=== PATIENT | female | born 1985 | race Caucasian/White ===

== ENCOUNTER 2020-10-26 15:01 | Inpatient (IN) | payer MEDICAID, SELFPAY ==
[2020-10-26 15:03] VITALS: BP 159/95; PULSE 112; RESP 24; TEMP 36.5; O2SAT 99
--- NOTE | 2020-10-26 15:06 | W.ED.GENAD ---
Discharge Plan Disposition Patient Disposition: [facility] INPATIENT Condition: Stable Discharge Details Clinical Impression: Acute appendicitis Admit Date/Time: 10/26/20 18:30 Admit Provider: Niko Calvin Attending Provider: Niko Calvin Primary Care Provider: None,None ED Provider: Sarah Stahl Discharge Data Discharge Date/Time-TO BE ENTERED AT DEPARTURE: 10/26/20 21:15 Medical Decision Making 35-year-old female with a history of chronic constipation presents to the ED with constipation for the past few days and right-sided abdominal pain since last night. Heart rate 110s. Blood pressure hypertensive. She is afebrile. Patient appears significantly uncomfortable while moving from a sitting to supine position. She has significant tenderness palpation of the right lower down to right lower quadrant. Suspect this is most likely musculoskeletal. Do not palpate an obvious mass, bulge without evidence of cellulitis. Due to her location of pain, will obtain screening labs, gallbladder ultrasound and CT abdomen and pelvis to rule out bowel obstruction, hernia or appendicitis. We will also give IV fluids, a dose of p.o. Valium and IV Toradol and reassess. Labs and imaging reviewed. White blood cell count 12.56. Anion gap 15.5. Lipase normal. Urine appears consistent with dehydration but no obvious infection Gallbladder ultrasound negative. CT abdomen and pelvis notes acute appendicitis with a potential walled off perforation. Patient reassessed and she states pain is persistent with any movement. Will give a dose of morphine Case discussed with surgeon on-call Dr. Calvin who will take patient to the OR. Agrees with plan for Zosyn. Delay in patient going to the OR due to an emergency with OB. Patient did develop a low-grade fever of 100.8 for which she was given IV tylenol. She otherwise remained hemodynamically stable. Medical Records Medical records reviewed: Yes I reviewed the patient's medical records. Imaging Data Radiologic Study: Radiologist's impression: CT Abdomen And Pelvis With Contrast Exam date and time: 10/26/2020 4:39 PM Age: 35 years old Clinical indication: Other: Ruq/rlq pain, R/O cholecystitis, appendicitis, sbo TECHNIQUE: Imaging protocol: Computed tomography of the abdomen and pelvis with contrast. Radiation optimization: All CT scans at this facility use at least one of these dose optimization techniques: automated exposure control; mA and/or kV adjustment per patient size (includes targeted exams where dose is matched to clinical indication); or iterative reconstruction. Contrast material: VISIPAQUE 320; Contrast volume: 100 ml; Contrast route: INTRAVENOUS (IV); COMPARISON: US ABDOMEN LIMITED 10/26/2020 3:56 PM FINDINGS: Liver: Diffuse fatty infiltration of the liver. Gallbladder and bile ducts: Normal. No calcified stones. No ductal dilation. Pancreas: Normal. No ductal dilation. Spleen: Normal. No splenomegaly. Adrenal glands: Normal. No mass. Kidneys and ureters: Normal. No hydronephrosis. Stomach and bowel: Gas distended loops small bowel in the left side of the abdomen with maximum diameter 2.5 cm. These could be ileus. Appendix: Dilated appendix measuring approximately 1.2 cm in diameter. Fluid in the appendiceal lumen. Periappendiceal soft tissue stranding. Linear calcified appendicoliths measuring approximately 2.2 cm in the more proximal appendix and approximately 1.3 cm in the distal appendix. No fluid collection is identified but contained perforation cannot be excluded. Intraperitoneal space: See Appendix finding. Vasculature: Retroaortic left renal vein. Lymph nodes: Unremarkable. No enlarged lymph nodes. Urinary bladder: Unremarkable as visualized. Reproductive: The uterus has a bicornuate or septated appearance. Bones/joints: Unremarkable. No acute fracture. Soft tissues: Unremarkable. IMPRESSION: 1. Acute appendicitis with 2 elongated appendicoliths. Contained perforation cannot be excluded but appears unlikely. No fluid collection identified 2. Probable focal left-sided small-bowel ileus. Fatty liver. Bicornuate or septated uterus. US ABDOMEN LIMITED CLINICAL HISTORY: RUQ abd pain, r/o cholecystitis TECHNIQUE: Ultrasound abdomen performed using standard protocol. COMPARISON: No exams were available for comparison FINDINGS: There is no ascites evident. LIVER: Liver is hyperechoic indicating steatosis. No focal hepatic lesions identified. GALLBLADDER/BILIARY: There are no gallstones. No gallbladder wall edema nor pericholecystic fluid. The common hepatic duct isnot dilated, measuring 4-5mm at the level of angel hepatis. PANCREAS: There is no evidence of pancreatic mass nor dilatation of the pancreatic duct. RIGHT KIDNEY:No evidence of solid mass, calculus, nor hydronephrosis. No cortical cysts evident. ABDOMINAL AORTA AND IVC: Visualized portions exhibit normal caliber. IMPRESSION: 1. No evidence of cholelithiasis nor dilatation of the biliary tree. 2. Hepatic steatosis. Correlation with appropriate hepatic blood work is recommended 3. There is no ascites. Lab Data Lab results reviewed: Yes I reviewed the patient's lab results. Labs: Laboratory Tests Range/Units 10/26/20 10/26/20 10/26/20 15:20 15:20 16:23 WBC (4.4-10.8) 10^3/uL 12.56 H RBC (3.93-5.22) 10^6/uL 4.17 Hgb (11.2-15.7) g/dL 13.2 Hct (36.0-46.0) % 38.9 MCV (80-95) fL 93.3 MCH (27.0-33.0) pg 31.7 MCHC (32.0-36.0) % 33.9 RDW (11.7-14.6) % 12.5 Plt Count (130-400) 10^3/uL 182 MPV (8.0-11.0) fL 10.2 Immature Gran % 0.3 Neutrophils % 85.2 Lymphocytes % 7.8 Monocytes % 6.4 Eosinophils % 0.0 Basophils % 0.3 Nucleated RBC % % 0 Absolute Neutrophils (1.2-6.7) 10^3/uL 10.70 H Absolute Lymphocytes (1.2-3.4) 10^3/uL 0.98 L Absolute Monocytes (0.1-0.8) 10^3/uL 0.80 Absolute Eosinophils (0.0-0.7) 10^3/uL 0.00 Absolute Basophils (0.0-0.2) 10^3/uL 0.04 Sodium (136-145) mmol/L 136 Potassium (3.5-5.1) mmol/L 3.6 Chloride (98-107) mmol/L 97 L Carbon Dioxide (21.0-32.0) mmol/L 23.5 Anion Gap (3-11) mmol/L 15.5 H BUN (7-18) mg/dL 7 Creatinine (0.55-1.02) mg/dL 0.8 Estimated GFR/1.73 m2 (mL/min/1.73m2) >= 60.00 Glucose (74-106) mg/dL 92 Calcium (8.5-10.1) mg/dL 9.9 Total Bilirubin (0.2-1.0) mg/dL 1.5 H AST (15-37) U/L 37 ALT (14-59) U/L 46 Alkaline Phosphatase (46-116) U/L 86 Total Protein (6.4-8.2) g/dL 8.4 H Albumin (3.4-5.0) g/dL 4.1 Lipase (73-393) U/L 65 Urine Color (Yellow) Yellow Urine Clarity (Clear) Clear Urine pH (5-8) 6.0 Ur Specific [place] (1.005-1.025) >= 1.030 H Urine Protein (Negative) mg/dL Negative Urine Ketones (Negative) mg/dL >=160 H Urine Blood (Negative) Trace-lysed H Urine Nitrite (Negative) Negative Urine Bilirubin (Negative) Negative Urine Urobilinogen (Up TO 0.2) EU/dL 0.2 Ur Leukocyte Esterase (Negative) Negative Urine RBC (0-2) HPF 0-2 Urine WBC (0-5) HPF 0-2 Ur Epithelial Cells (Negative) HPF Moderate Urine Crystals (Negative) HPF Negative Urine Bacteria (Negative) HPF Negative Urine Casts (Negative) LPF Negative Urine Mucus (Negative) Trace Urine Other (Negative) Negative Ur Culture Indicated? No Urine Glucose (Negative) mg/dL Negative COVID-19 Source SARS-CoV-2 (PCR) (Negative) Range/Units 10/26/20 17:21 WBC (4.4-10.8) 10^3/uL RBC (3.93-5.22) 10^6/uL Hgb (11.2-15.7) g/dL Hct (36.0-46.0) % MCV (80-95) fL MCH (27.0-33.0) pg MCHC (32.0-36.0) % RDW (11.7-14.6) % Plt Count (130-400) 10^3/uL MPV (8.0-11.0) fL Immature Gran % Neutrophils % Lymphocytes % Monocytes % Eosinophils % Basophils % Nucleated RBC % % Absolute Neutrophils (1.2-6.7) 10^3/uL Absolute Lymphocytes (1.2-3.4) 10^3/uL Absolute Monocytes (0.1-0.8) 10^3/uL Absolute Eosinophils (0.0-0.7) 10^3/uL Absolute Basophils (0.0-0.2) 10^3/uL Sodium (136-145) mmol/L Potassium (3.5-5.1) mmol/L Chloride (98-107) mmol/L Carbon Dioxide (21.0-32.0) mmol/L Anion Gap (3-11) mmol/L BUN (7-18) mg/dL Creatinine (0.55-1.02) mg/dL Estimated GFR/1.73 m2 (mL/min/1.73m2) Glucose (74-106) mg/dL Calcium (8.5-10.1) mg/dL Total Bilirubin (0.2-1.0) mg/dL AST (15-37) U/L ALT (14-59) U/L Alkaline Phosphatase (46-116) U/L Total Protein (6.4-8.2) g/dL Albumin (3.4-5.0) g/dL Lipase (73-393) U/L Urine Color (Yellow) Urine Clarity (Clear) Urine pH (5-8) Ur Specific [place] (1.005-1.025) Urine Protein (Negative) mg/dL Urine Ketones (Negative) mg/dL Urine Blood (Negative) Urine Nitrite (Negative) Urine Bilirubin (Negative) Urine Urobilinogen (Up TO 0.2) EU/dL Ur Leukocyte Esterase (Negative) Urine RBC (0-2) HPF Urine WBC (0-5) HPF Ur Epithelial Cells (Negative) HPF Urine Crystals (Negative) HPF Urine Bacteria (Negative) HPF Urine Casts (Negative) LPF Urine Mucus (Negative) Urine Other (Negative) Ur Culture Indicated? Urine Glucose (Negative) mg/dL COVID-19 Source Nasopharyx SARS-CoV-2 (PCR) (Negative) Negative HPI General Mode of arrival: wheelchair. Date/Time Provider Initiated Documentation: 10/26/20 15:02. Limitations to Documentation: no limitations. Information obtained by: patient. HPI Narrative: Patient is a 35-year-old female with a history of chronic constipation who presents to the ED with complaint of constipation for the past few days and right-sided abdominal pain since last night since straining to have a bowel movement. She states she was straining very hard to have a bowel movement and felt a pop in her right side of her abdomen. Patient states the pain is constant, sharp, located in the right upper and right lower quadrants that is worse with movement, palpation or sucking her abdomen. Patient does not take any medication for pain today. Patient states she usually takes probiotics or apple cider vinegar for her constipation. She states she also occasionally uses stool softeners or MiraLAX as needed. She states she has had a few small bowel movements over the past few days but that they were dark brown. She admits to decreased appetite today. She states she had a temp of 99.8 today at home. She denies any nausea, vomiting, urinary symptoms, recent travel, recent sick contacts or recent antibiotics. Related Data Home Medications Medication Instructions Recorded Confirmed norethindrone ac-eth estradiol 1 tab PO DAILY 12/28/15 [Microgestin 08/03 ()] ibuprofen [IBU] 600 mg PO Q6H PRN PRN #0 tab 10/27/20 tramadol 50 mg PO Q6H PRN PRN #12 tab 10/27/20 Previous Rx's Medication Instructions Recorded ibuprofen [IBU] 600 mg PO Q6H PRN PRN #0 tab 10/27/20 tramadol 50 mg PO Q6H PRN PRN #12 tab 10/27/20 Allergies Allergy/AdvReac Type Severity Reaction Status Date / Time No Known Allergies Allergy Unverified 10/26/20 15:06 Review of Systems All systems reviewed & are unremarkable except as noted in HPI and below Constitutional Constitutional: Reports as per HPI, Denies chills and Denies fever(s) Eyes Eyes: Denies blurry vision ENT Ears, Nose, Mouth, and Throat: Denies dizziness, Denies sore throat and Denies throat swelling Cardiovascular Cardiovascular: Denies chest pain and Denies dyspnea Respiratory Respiratory: Denies cough and Denies dyspnea Gastrointestinal Gastrointestinal: Reports abdominal pain, Reports constipation, Denies diarrhea and Denies vomiting Genitourinary Genitourinary: Denies hematuria and Denies dysuria Musculoskeletal Musculoskeletal: Denies back pain and Denies numbness Integumentary/Breasts Skin/Breast: Denies lesions and Denies rash Neurologic Neurologic: Denies dizziness, Denies localized weakness and Denies numbness Allergic/Immunologic Allergic/Immunologic: Denies throat swelling [facility] Medical History No significant past medical history Surgical History No significant past surgical history Family History Other Heart disease Social History Smoking/Tobacco Use Status: Never Smoking risk assessment performed?: Yes Alcohol Intake: never Drug use: Never Substance use type: does not use In current or past relationships, have you been: made to feel afraid Do you feel safe at home: Yes Do you feel safe in your relationship?: Yes Exam Const General: cooperative, healthy appearing and no acute distress HENMT Head: normal to inspection Face and sinus: normal facial exam Eyes General: appearance normal, both eyes and all related structures EOM: EOM intact bilaterally Neck Neck: normal visual inspection and No submandibular swelling Lymphatic: no lymphadenopathy noted Chest Chest: normal inspection of the chest and no tenderness Resp Effort & Inspection: normal respiratory effort and able to speak in complete sentences Auscultation: clear to auscultation bilaterally Cardio Rate: regular rate Rhythm: regular rhythm GI Inspection: normal to inspection Palpation: soft, not firm, not rigid and tender in the RLQ and in the RUQ Auscultation: normal bowel sounds Skin General skin exam: no rashes or lesions noted Neuro General: patient alert, patient awake and patient oriented x3 Cognition: normal cognition Speech: speech normal Motor: muscle tone normal throughout Sensory Exam: no sensory deficits noted Extrem General: normal to inspection, full ROM, capillary refill normal, no calf tenderness bilaterally and no edema Psych Appearance: grossly normal Mental Status: mental status grossly normal Speech and Movement: speech and movement normal Affect: normal affect
--- NOTE | 2020-10-26 15:15 | DI.CT_ITS ---
EXAM: CT ABDOMEN PELVIS W CLINICAL HISTORY: RUQ/RLQ pain, r/o cholecystitis, appendicitis, SBO. TECHNIQUE: Imaging Protocol: Axial computed tomography images with coronal and sagittal reformatted images were created and reviewed CONTRAST MATERIAL: Intravenous: Omnipaque 100cc Oral: None COMPARISON: No exams were available for comparison FINDINGS: VISUALIZED LUNG BASES: No nodules nor pleural effusions evident. ABDOMEN: There is no ascites in the upper abdomen. LIVER: Liver is hypodense implying steatosis but there are no discrete focal hepatic lesions. No dil atation of intrahepatic ducts. GALLBLADDER/BILIARY: No obvious gallbladder pathology. CBD is not dilated. PANCREAS: No evidence of pancreatic mass nor dilatation of the pancreatic duct. SPLEEN: Spleen is not enlarged. No obvious intrasplenic lesions. Small splenule of a: Betty mint se en adjacent to the spleen lateral aspect. The splenic and portal veins are patent. ADRENALS: There are no significant adrenal masses. KIDNEYS:No cysts evident. No solid renal masses. No calculi nor hydronephrosis.. ABDOMINAL AORTA: Abdominal aorta is not enlarged. Retroaortic left renal vein is noted, seen approxi mately 5 percent of the general population. LYMPH NODES:There is no retroperitineal nor paraaortic adenopathy. ABDOMINAL WALL/GI: No evidence of significant anterior abdominal wall hernia. No bowel obstruction. PELVIS: GI: The appendix is abnormal. It is distended to 12 millimeters and contains appendicoliths and some periappendiceal fluid is noted. No free air.No evidence of sigmoid diverticulitis. LYMPH NODES: There is no intrapelvic nor inguinal adenopathy. REPRODUCTIVE: Bicornuate uterus noted small cyst in the right ovary. Left ovary unremarkable. URINARY BLADDER: No calculi nor obvious masses evident OSSEOUS: No significant osseous lesions. IMPRESSION: 1. Findings are consistent with acute appendicitis. Is some fluid surrounding the appendix. 2. Bicornuate uterus incidentally noted. 3. Hepatic steatosis. No discrete focal hepatic lesions. RADIATION DOSE DELIVERED: 962.5mGy.cm Total DLP DATA REPOSITORY: All CT scans at this facility are submitted to the National Radiology Data Registry (NRDR) Dose Index Registry (DIR) with the [employer] ([employer]). RADIATION OPTIMIZATION: All CT scans at this facility use at least one of these dose optimization te chniques: automated exposure control; mA and/or kV adjustment per patient size (includes targeted exa ms where dose is matched to clinical indication); or iterative reconstruction.
--- NOTE | 2020-10-26 15:15 | DI.US_ITS ---
EXAM: US ABDOMEN LIMITED CLINICAL HISTORY: RUQ abd pain, r/o cholecystitis TECHNIQUE: Ultrasound abdomen performed using standard protocol. COMPARISON: No exams were available for comparison FINDINGS: There is no ascites evident. LIVER: Liver is hyperechoic indicating steatosis. No focal hepatic lesions identified. GALLBLADDER/BILIARY: There are no gallstones. No gallbladder wall edema nor pericholecystic fluid. The common hepatic duct isnot dilated, measuring 4-5mm at the level of angel hepatis. PANCREAS: There is no evidence of pancreatic mass nor dilatation of the pancreatic duct. RIGHT KIDNEY:No evidence of solid mass, calculus, nor hydronephrosis. No cortical cysts evident. ABDOMINAL AORTA AND IVC: Visualized portions exhibit normal caliber. IMPRESSION: 1. No evidence of cholelithiasis nor dilatation of the biliary tree. 2. Hepatic steatosis. Correlation with appropriate hepatic blood work is recommended 3. There is no ascites. DATA REPOSITORY:
[2020-10-26] MEDS: Normal Saline 1,000 ML 1000 ML IV (15:24)
[2020-10-26 15:29] LABS: Abs Immature Grans 0.04 10^3/uL (0.0-0.06); Absolute Basophil Count 0.04 10^3/uL (0.0-0.2); Absolute Lymphocyte Count 0.98 10^3/uL (1.2-3.4); Basophils % 0.3; HCT 38.9 % (36.0-46.0); HGB 13.2 g/dL (11.2-15.7); Immature Grans % 0.3; Lymphocytes % 7.8; MCH 31.7 pg (27.0-33.0); MCHC 33.9 % (32.0-36.0); MCV 93.3 fL (80-95); MPV 10.2 fL (8.0-11.0); Monocytes % 6.4; Neutrophils % 85.2; Nucleated RBC 0 %; Platelet Count 182 10^3/uL (130-400); RBC 4.17 10^6/uL (3.93-5.22); RDW 12.5 % (11.7-14.6); WBC 12.56 10^3/uL (4.4-10.8)
[2020-10-26] MEDS: diazePAM 5 MG TAB PO (15:29)
[2020-10-26] MEDS: Ketorolac 30 MG/ML VIAL IVP (15:29)
[2020-10-26 16:00] LABS: ALT 46 U/L (14-59); AST 37 U/L (15-37); Albumin 4.1 g/dL (3.4-5.0); Alkaline Phosphatase 86 U/L (46-116); Anion Gap 15.5 mmol/L (3-11); BUN 7 mg/dL (7-18); Bilirubin, Total 1.5 mg/dL (0.2-1.0); CO2 23.5 mmol/L (21.0-32.0); CREATININE 0.8 mg/dL (0.55-1.02); Calcium 9.9 mg/dL (8.5-10.1); Chloride 97 mmol/L (98-107); Glucose 92 mg/dL (74-106); Lipase 65 U/L (73-393); Potassium 3.6 mmol/L (3.5-5.1); Sodium 136 mmol/L (136-145); Total Protein 8.4 g/dL (6.4-8.2)
--- NOTE | 2020-10-26 16:17 | DI.VRAD_ITS ---
PROCEDURE INFORMATION: Exam: US Abdomen, Limited; Right Upper Quadrant Exam date and time: 10/26/2020 4:04 PM Age: 35 years old Clinical indication: Abdominal pain; Other: Ruq abd pain; R/O cholecystitis TECHNIQUE: Imaging protocol: US abdomen. Real time ultrasound with image documentation. Limited exam focused on the right upper quadrant. COMPARISON: No relevant prior studies available. FINDINGS: Liver: Partially visualized portion of the liver demonstrates fatty infiltration Gallbladder: Normal. No gallstones. There is no gallbladder wall thickening. Common bile duct: Normal. No stones. No dilation. Pancreas: Visualized pancreas is unremarkable. Right kidney: Normal. No mass. No hydronephrosis. IMPRESSION: No acute findings. Dictated and Authenticated by: Madeleine Betancourt MD. Ordering:JOSUE Smith MD
[2020-10-26 16:42] LABS: Bilirubin Negative (Negative); Blood Trace-lysed (Negative); Clarity Clear (Clear); Glucose Negative (Negative); Ketones >=160 mg/dL (Negative); Leukocyte Esterase Negative (Negative); Nitrite Negative (Negative); Specific Gravity >= 1.030 (1.005-1.025); Urobilinogen 0.2 EU/dL (Up TO 0.2)
[2020-10-26] MEDS: Normal Saline Flush 10 ML SYR IVP (16:46)
[2020-10-26] MEDS: Normal Saline - Diluent 50 ML VIAL IV (16:46)
[2020-10-26 16:56] LABS: Bacteria Negative HPF (Negative); C & S Indicated? No; Casts Negative LPF (Negative); Crystals Negative HPF (Negative); Epithelial Cells Moderate HPF (Negative); Mucus Trace (Negative); Other Cells Negative (Negative); RBC 0-2 HPF (0-2); WBC 0-2 HPF (0-5)
--- NOTE | 2020-10-26 17:02 | DI.VRAD_ITS ---
PROCEDURE INFORMATION: Exam: CT Abdomen And Pelvis With Contrast Exam date and time: 10/26/2020 4:39 PM Age: 35 years old Clinical indication: Other: Ruq/rlq pain, R/O cholecystitis, appendicitis, sbo TECHNIQUE: Imaging protocol: Computed tomography of the abdomen and pelvis with contrast. Radiation optimization: All CT scans at this facility use at least one of these dose optimization techniques: automated exposure control; mA and/or kV adjustment per patient size (includes targeted exams where dose is matched to clinical indication); or iterative reconstruction. Contrast material: VISIPAQUE 320; Contrast volume: 100 ml; Contrast route: INTRAVENOUS (IV); COMPARISON: US ABDOMEN LIMITED 10/26/2020 3:56 PM FINDINGS: Liver: Diffuse fatty infiltration of the liver. Gallbladder and bile ducts: Normal. No calcified stones. No ductal dilation. Pancreas: Normal. No ductal dilation. Spleen: Normal. No splenomegaly. Adrenal glands: Normal. No mass. Kidneys and ureters: Normal. No hydronephrosis. Stomach and bowel: Gas distended loops small bowel in the left side of the abdomen with maximum diameter 2.5 cm. These could be ileus. Appendix: Dilated appendix measuring approximately 1.2 cm in diameter. Fluid in the appendiceal lumen. Periappendiceal soft tissue stranding. Linear calcified appendicoliths measuring approximately 2.2 cm in the more proximal appendix and approximately 1.3 cm in the distal appendix. No fluid collection is identified but contained perforation cannot be excluded. Intraperitoneal space: See Appendix finding. Vasculature: Retroaortic left renal vein. Lymph nodes: Unremarkable. No enlarged lymph nodes. Urinary bladder: Unremarkable as visualized. Reproductive: The uterus has a bicornuate or septated appearance. Bones/joints: Unremarkable. No acute fracture. Soft tissues: Unremarkable. IMPRESSION: 1. Acute appendicitis with 2 elongated appendicoliths. Contained perforation cannot be excluded but appears unlikely. No fluid collection identified 2. Probable focal left-sided small-bowel ileus. Fatty liver. Bicornuate or septated uterus. THIS REPORT CONTAINS FINDINGS THAT MAY BE CRITICAL TO PATIENT CARE. The findings were verbally communicated via telephone conference with zeeshan kovacs at 5:00 PM EDT on 10/26/2020. The findings were acknowledged and understood. Dictated and Authenticated by: Madeleine Betancourt MD. Ordering:JOSUE Smith MD
[2020-10-26] MEDS: PIPERACILLIN/TAZO 3.375 GM in Normal Saline 50 ML IVPB (17:21)
--- NOTE | 2020-10-26 17:32 | W.SURGCON ---
Date of service: 10/26/20 Time of Service: 17:32 Assessment and Plan Assessment and plan (1) Abdominal pain: Status: Acute Assessment and plan: Assessment?abdominal pain right more than left of 48 hours duration. There is no physical exam or CT evidence of peritoneal or surgical process. Specifically other than location of pain there are no suggestions that this represents appendicitis. Symptoms may well be due to obstipation. Patient affirms that she is able to drink liquids. I have suggested she stay on a clear liquid diet for now. She should use her usual Dulcolax tabs and I have suggested that she use some milk of magnesia or MiraLAX to help prompt bowel activity. This may help alleviate her pain. Patient is comfortable watching things at home. If symptoms continue to exaggerate she should return to the ER for reevaluation as needed. Plan?no plans for operation or in-hospital observation. Clear liquids Ducalax with MiraLAX or milk of magnesia for obstipation Return to ER as needed. History of Present Illness History of Present Illness Chief Complaint: abdominal pain Narrative: 37-year-old lady has experienced abdominal pain for approximately 4 days. Pain is located on right side. It has not moved. She finds nothing improves or alleviates the discomfort. She has had no fever or chills. No nausea or vomiting. Able to drink liquids and take a light diet. Has chronic constipation and uses Dulcolax for this. Had a bowel movement yesterday. Patient is on methadone for narcotic addiction. She had a left inguinal hernia in the umbilical hernia repaired a couple of months back. Still has some tenderness at these incisions but they are no different in the last couple of days. CT scan today reveals obstipated stool. No abnormal bowel loops. No free fluid or abscess. Appendix is not distinctly identified. Ultrasound of abdomen was done earlier today. ER PA communicates that this was nonconclusive as well. WBC normal. [facility] Medical History No significant past medical history Surgical History No significant past surgical history Social History (Updated 10/26/20 @ 15:08 by Sarah Stahl DO) Smoking/Tobacco Use Status: Never Smoking risk assessment performed?: Yes Alcohol Intake: never Drug use: Never Substance use type: does not use Do you feel safe at home: Yes Do you feel safe in your relationship?: Yes Exam Eyes Sclera: sclerae normal Resp Effort & Inspection: normal respiratory effort and able to speak in complete sentences Cardio Rate: regular rate GI Other: Healing incisions in periumbilical and left groin region. No sign of infection or cellulitis. Abdomen is nondistended. She is tender all over the abdomen but more so on the right than on the left. There is no palpable mass. There is no guarding. Skin General skin exam: elasticity normal and turgor normal Results Last Vital Signs Temp 97.7 F 10/26/20 15:03 Pulse 112 H 10/26/20 15:03 Resp 24 10/26/20 15:03 BP 159/95 H 10/26/20 15:03 Pulse Ox 99 10/26/20 15:03 Labs Result diagrams: 10/26/20 15:20 10/26/20 15:20 Labs: Laboratory Results - last 24 hr 10/26/20 10/26/20 10/26/20 15:20 15:20 16:23 WBC 12.56 H RBC 4.17 Hgb 13.2 Hct 38.9 MCV 93.3 MCH 31.7 MCHC 33.9 RDW 12.5 Plt Count 182 MPV 10.2 Immature Gran % 0.3 Neutrophils % 85.2 Lymphocytes % 7.8 Monocytes % 6.4 Eosinophils % 0.0 Basophils % 0.3 Nucleated RBC % 0 Absolute Neutrophils 10.70 H Absolute Lymphocytes 0.98 L Absolute Monocytes 0.80 Absolute Eosinophils 0.00 Absolute Basophils 0.04 Sodium 136 Potassium 3.6 Chloride 97 L Carbon Dioxide 23.5 Anion Gap 15.5 H BUN 7 Creatinine 0.8 Estimated GFR/1.73 m2 >= 60.00 Glucose 92 Calcium 9.9 Total Bilirubin 1.5 H AST 37 ALT 46 Alkaline Phosphatase 86 Total Protein 8.4 H Albumin 4.1 Lipase 65 Urine Color Yellow Urine Clarity Clear Urine pH 6.0 Ur Specific [place] >= 1.030 H Urine Protein Negative Urine Ketones >=160 H Urine Blood Trace-lysed H Urine Nitrite Negative Urine Bilirubin Negative Urine Urobilinogen 0.2 Ur Leukocyte Esterase Negative Urine RBC 0-2 Urine WBC 0-2 Ur Epithelial Cells Moderate Urine Crystals Negative Urine Bacteria Negative Urine Casts Negative Urine Mucus Trace Urine Other Negative Ur Culture Indicated? No Urine Glucose Negative COVID-19 Source 10/26/20 17:21 WBC RBC Hgb Hct MCV MCH MCHC RDW Plt Count MPV Immature Gran % Neutrophils % Lymphocytes % Monocytes % Eosinophils % Basophils % Nucleated RBC % Absolute Neutrophils Absolute Lymphocytes Absolute Monocytes Absolute Eosinophils Absolute Basophils Sodium Potassium Chloride Carbon Dioxide Anion Gap BUN Creatinine Estimated GFR/1.73 m2 Glucose Calcium Total Bilirubin AST ALT Alkaline Phosphatase Total Protein Albumin Lipase Urine Color Urine Clarity Urine pH Ur Specific [place] Urine Protein Urine Ketones Urine Blood Urine Nitrite Urine Bilirubin Urine Urobilinogen Ur Leukocyte Esterase Urine RBC Urine WBC Ur Epithelial Cells Urine Crystals Urine Bacteria Urine Casts Urine Mucus Urine Other Ur Culture Indicated? Urine Glucose COVID-19 Source Nasopharyx
[2020-10-26 18:11] VITALS: BP 140/85; PULSE 110; RESP 20; TEMP 38.2; O2SAT 99
--- NOTE | 2020-10-26 18:14 | W.SURGCON ---
Date of service: 10/26/20 Time of Service: 18:14 Assessment and Plan Assessment and plan (1) Acute appendicitis: Status: Acute Assessment and plan: Assessment Acute appendicitis. Patient's constellation of history, physical , lab and imaging studies all support acute appendicitis. I have personally reviewed the images and find no convincing evidence of perforation or abscess. Plan: I have recommended laparoscopic appendectomy. We discussed the risk and benefits of procedure in regard to this diagnosis. Patient consents to procedure. We will alert the operating team and proceed to the OR as availability allows this evening. History of Present Illness History of Present Illness Chief Complaint: abdominal pain Narrative: 35-year-old lady with history of chronic constipation was having trouble with bowel movement last evening. She was straining at stool and noted fairly sudden onset of right-sided abdominal pain. This was sharp in nature and extended from the right subcostal area to right side of pelvis. The pain has persisted for the past 18 -20 hours. Discomfort is more so in right lower quadrant at present. She has not been hungry and has not eaten solid food all day today. She has had some sips of liquids. She denies nausea or vomiting. Patient has not had similar abdominal pain in the past. She has had no abdominal surgery. CT scan of abdomen done today reveals findings consistent with acute no appendicitis. There is no intra-abdominal abscess. Report suggests a possible septation containing a tiny perforation. IV antibiotics have been initiated by ER physician. Review of Systems All systems reviewed & are unremarkable except as noted in HPI and below PFSH Medical History No significant past medical history Surgical History No significant past surgical history Social History Smoking/Tobacco Use Status: Never Smoking risk assessment performed?: Yes Alcohol Intake: never Drug use: Never Substance use type: does not use Do you feel safe at home: Yes Do you feel safe in your relationship?: Yes Exam Const General: cooperative, healthy appearing and anxious HENVA Ears: hearing grossly normal bilaterally Mouth: oral mucosae normal and moist mucous membranes Eyes Sclera: sclerae normal Neck Lymphatic: no lymphadenopathy noted Resp Effort & Inspection: normal respiratory effort GI Other: Abdomen nondistended. No obvious incisions or scars. Has tenderness in right lower quadrant when left lower quadrant palpated. He has mild guarding when right lower quadrant palpated. Focally tender at the site. No obvious abdominal wall hernia. Skin General skin exam: turgor normal Neuro General: patient alert, patient awake and patient oriented x3 Motor: no movement abnormalities noted Psych Attitude: cooperative Thought Process: normal Insight: insight good Results Last Vital Signs Temp 100.8 F H 10/26/20 18:11 Pulse 110 H 10/26/20 18:11 Resp 20 10/26/20 18:11 BP 140/85 10/26/20 18:11 Pulse Ox 99 10/26/20 18:11 Labs Result diagrams: 10/26/20 15:20 10/26/20 15:20 Labs: Laboratory Results - last 24 hr 10/26/20 10/26/20 10/26/20 15:20 15:20 16:23 WBC 12.56 H RBC 4.17 Hgb 13.2 Hct 38.9 MCV 93.3 MCH 31.7 MCHC 33.9 RDW 12.5 Plt Count 182 MPV 10.2 Immature Gran % 0.3 Neutrophils % 85.2 Lymphocytes % 7.8 Monocytes % 6.4 Eosinophils % 0.0 Basophils % 0.3 Nucleated RBC % 0 Absolute Neutrophils 10.70 H Absolute Lymphocytes 0.98 L Absolute Monocytes 0.80 Absolute Eosinophils 0.00 Absolute Basophils 0.04 Sodium 136 Potassium 3.6 Chloride 97 L Carbon Dioxide 23.5 Anion Gap 15.5 H BUN 7 Creatinine 0.8 Estimated GFR/1.73 m2 >= 60.00 Glucose 92 Calcium 9.9 Total Bilirubin 1.5 H AST 37 ALT 46 Alkaline Phosphatase 86 Total Protein 8.4 H Albumin 4.1 Lipase 65 Urine Color Yellow Urine Clarity Clear Urine pH 6.0 Ur Specific [place] >= 1.030 H Urine Protein Negative Urine Ketones >=160 H Urine Blood Trace-lysed H Urine Nitrite Negative Urine Bilirubin Negative Urine Urobilinogen 0.2 Ur Leukocyte Esterase Negative Urine RBC 0-2 Urine WBC 0-2 Ur Epithelial Cells Moderate Urine Crystals Negative Urine Bacteria Negative Urine Casts Negative Urine Mucus Trace Urine Other Negative Ur Culture Indicated? No Urine Glucose Negative COVID-19 Source 10/26/20 17:21 WBC RBC Hgb Hct MCV MCH MCHC RDW Plt Count MPV Immature Gran % Neutrophils % Lymphocytes % Monocytes % Eosinophils % Basophils % Nucleated RBC % Absolute Neutrophils Absolute Lymphocytes Absolute Monocytes Absolute Eosinophils Absolute Basophils Sodium Potassium Chloride Carbon Dioxide Anion Gap BUN Creatinine Estimated GFR/1.73 m2 Glucose Calcium Total Bilirubin AST ALT Alkaline Phosphatase Total Protein Albumin Lipase Urine Color Urine Clarity Urine pH Ur Specific [place] Urine Protein Urine Ketones Urine Blood Urine Nitrite Urine Bilirubin Urine Urobilinogen Ur Leukocyte Esterase Urine RBC Urine WBC Ur Epithelial Cells Urine Crystals Urine Bacteria Urine Casts Urine Mucus Urine Other Ur Culture Indicated? Urine Glucose COVID-19 Source Nasopharyx
[2020-10-26 18:17] LABS: COVID-19 PCR Negative (Negative)
--- NOTE | 2020-10-26 18:21 | NUR.NOTE ---
let patient know of her negative covid results.
[2020-10-26] MEDS: Normal Saline 1,000 ML 125 ML IV ×2 (18:27→23:45)
[2020-10-26] MEDS: ACETAMINOPHEN 1,000 MG/100 ML BTL 400 MG IVPB (19:02)
--- NOTE | 2020-10-26 21:10 | NUR.NOTE ---
Nursing Note:See additional vital signs on Pre Op Hand off worksheet that were not entered into the EMR.
[2020-10-26] MEDS: Lactated Ringers 1,000 ML 30 ML IV (21:22)
--- NOTE | 2020-10-26 21:58 | APP_PTH ---
PATIENT: Naomi Yadav LOC: [id number]#:[id number] AGE/SX: 35/F ROOM: RE10/26/[address]: Niko Calvin MD : 1985 BED: A DIS: 10/27/2020 SPEC #: [id number] RECD: 10/27/20 12:45 STATUS: [place]CHITA REQ #: [id number] DARIEN: 10/26/20 21:[address]: Niko Calvin DEPT: Surgical Specimen RECD BY: Tasha Montano ENTERED: 10/27/20 12:45 SP TYPE: Appendix OTHR DR: None Tissues: 1 - APPENDIX NOT INCIDENTAL Procedures: GROSS AND MICRO LEVEL 3 Comments: [id number]
--- NOTE | 2020-10-26 22:11 | ROE_ITS ---
Operative Note Operative Note DATE OF PROCEDURE: 10/26/20 PRE-OP DIAGNOSIS: Acute appendicitis POST-OP DIAGNOSIS: same PROCEDURE: Laparoscopic appendectomy SURGEON: Niko Calvin ANESTHESIA TYPE: General LMA/ETT Refer to Anesthesia Record ESTIMATED BLOOD LOSS: 20 PATHOLOGY: other (Appendix) COMPLICATIONS: None Patient was transported to: PACU Patient's condition: stable Indications: Constellation of symptoms signs physical exam and imaging consistent with acute appendicitis Findings: Acutely inflamed, nonperforated appendicitis. Proximal one half of appendix is retroperitoneal. Procedure Description: The constellation of history, physical exam, imaging and/or laboratory studies suggest appendicitis. Patient has been counselled regarding surgical treatment and laparoscopic appendectomy has been advised. Risks including bleeding , infection, injury to other organs , failure to ident john pathology or alternate etiologies for symptoms are among those discussed. The distinctions between the difficulty of the procedure and of potential rates of complication in the context of perforated versus nonperforated appendicitis is outlined. The potential need for conversion to open, incisional operation is also addressed. . Benefits of appendectomy and alternative treatment with antibiotics alone are discussed. All questions from patient and/or family are addressed. Consent is obtained. DESCRIPTION OF PROCEDURE: The patient was taken to the operating suite and placed on the operating room table in the supine position. General endotracheal anesthesia was induced. Sequential ROSALIND stockings were applied. The abdomen was prepped and draped in a sterile fashion. An inferior transumbilical incision was made and carried into the abdominal cavity with Kirkland technique. An 12 mm trocar site was established. Pneumoperitoneum was induced. The abdomen was inspected. There was no sign of visceral injury due to trocar placement. Two additional 5 mm trocars were placed in the suprapubic and left lower quadrant respectively. The appendix is turgid and inflamed with modest exudate aon its surface , but no sign of perforation.The appendix was noted to be quite adherent to the surrounding viscera and lateral abdominal wall with inflammatory adhesions. These are easily broken down with modest blunt technique. The proximal 1/2 of the appendix is tethered in a retroperitoneal plane. Hook cautery is utilized to open the retroperitoneal plane and liberate the appendix. The mesoappendix was taken down with electrocautery. Hemostasis was maintained throughout. The base the appendix and its junction with cecum was clearly identified. A 2-0 Vicryl Surg-I-Loop is placed about the appendix and utilized to ligate the appendix at its junction with cecum. A 6 mm long appendiceal stump is left and the appendix is excised and placed within a specimen bag. A small amount of irrigant is used to cleanse the pericecal area. Hemostasis was again assured and the appendiceal stump appears well controlled. The specimen was placed within a retrieval bag and removed without incident via the periumbilical port. Trocars were removed under direct vision. There is no bleeding from the anterior abdominal wall. Midline fascial defect is closed with [id number] Vicryl suture. Each trocar site was closed at skin level with subcuticular 4-0 Monocryl. Dermabond is applied to skin. The patient tolerated the procedure well. There were no evident complications. The patient was in satisfactory condition throughout. All counts were reported as correct. [employer] intraoperative photos were taken and are filed elsewhere in the hospital chart.
[2020-10-26 22:14] VITALS: BP 116/70; PULSE 97; RESP 20; TEMP 36; O2SAT 100
[2020-10-26 22:19] VITALS: BP 117/69; PULSE 98; RESP 18; TEMP 37.3; O2SAT 100
[2020-10-26 23:01] VITALS: BP 102/61; PULSE 93; RESP 19; TEMP 36.9; O2SAT 98
[2020-10-26] MEDS: Melatonin 3 MG TAB 6 MG PO (23:44)
[2020-10-26] MEDS: traMADol 50 MG TAB PO (23:44)
[2020-10-27] MEDS: MORPHine 4 MG/ML SYR IM/IV ×2 (03:19→06:27)
[2020-10-27 03:47] VITALS: BP 113/69; PULSE 100; RESP 18; TEMP 37; O2SAT 97
[2020-10-27] MEDS: Normal Saline 1,000 ML 125 ML IV (06:28)
[2020-10-27 08:26] VITALS: BP 129/81; PULSE 94; RESP 16; TEMP 37.7; O2SAT 98
[2020-10-27 08:30] VITALS: TEMP 37.7
[2020-10-27] MEDS: MORPHine 4 MG/ML SYR IVP (08:30)
[2020-10-27] MEDS: Ibuprofen 600 MG TAB PO (08:30)
[2020-10-27 11:20] VITALS: BP 119/79; PULSE 83; RESP 16; TEMP 37.3; O2SAT 98
--- NOTE | 2020-10-27 11:45 | W.PM.PROGNOT ---
Date of Service Date of service: 10/27/20 Time of Service: 11:45 Assessment and Plan Assessment and plan (1) Acute appendicitis: Status: Acute Assessment and plan: Assessment: Postop day 1 after laparoscopic appendectomy. Patient doing well. We will see how pain control goes with oral medications and how increased activity goes today. Plan: Potentially discharge later today. Subjective Subjective Interval history since last seen: Patient is about 12-14 hours post-op From laparoscopic appendectomy for nonperforated acute appendicitis. The character of her abdominal pain is much improved from before her operation. Right lower quadrant discomfort dissipated. Suprapubic and trocar site pain present. She has tolerated liquids without nausea. She is ambulated to the bathroom. Voiding okay. Has used IV narcotics pain medication. Thinking of converting to oral medications at this point. Take a few hours during the afternoon and see how things progress before deciding discharge today or not. Exam Narrative Exam Narrative: Patient alert, engaged and conversational. Respiratory?no tachypnea or laboring. No audible wheezes Cardio?hemodynamically stable. No tachycardia Abdomen?trocar sites pristine. Not distended. Minimally tender. Appropriate to postop day 1. Objective Last Vital Signs Temp 99.1 F 10/27/20 11:20 Pulse 83 10/27/20 11:20 Resp 16 10/27/20 11:20 BP 119/79 10/27/20 11:20 Pulse Ox 98 10/27/20 11:20 Laboratory Results - last 24 hr 10/26/20 10/26/20 10/26/20 15:20 15:20 16:23 WBC 12.56 H RBC 4.17 Hgb 13.2 Hct 38.9 MCV 93.3 MCH 31.7 MCHC 33.9 RDW 12.5 Plt Count 182 MPV 10.2 Immature Gran % 0.3 Neutrophils % 85.2 Lymphocytes % 7.8 Monocytes % 6.4 Eosinophils % 0.0 Basophils % 0.3 Nucleated RBC % 0 Absolute Neutrophils 10.70 H Absolute Lymphocytes 0.98 L Absolute Monocytes 0.80 Absolute Eosinophils 0.00 Absolute Basophils 0.04 Sodium 136 Potassium 3.6 Chloride 97 L Carbon Dioxide 23.5 Anion Gap 15.5 H BUN 7 Creatinine 0.8 Estimated GFR/1.73 m2 >= 60.00 Glucose 92 Calcium 9.9 Total Bilirubin 1.5 H AST 37 ALT 46 Alkaline Phosphatase 86 Total Protein 8.4 H Albumin 4.1 Lipase 65 Urine Color Yellow Urine Clarity Clear Urine pH 6.0 Ur Specific [place] >= 1.030 H Urine Protein Negative Urine Ketones >=160 H Urine Blood Trace-lysed H Urine Nitrite Negative Urine Bilirubin Negative Urine Urobilinogen 0.2 Ur Leukocyte Esterase Negative Urine RBC 0-2 Urine WBC 0-2 Ur Epithelial Cells Moderate Urine Crystals Negative Urine Bacteria Negative Urine Casts Negative Urine Mucus Trace Urine Other Negative Ur Culture Indicated? No Urine Glucose Negative COVID-19 Source SARS-CoV-2 (PCR) 10/26/20 17:21 WBC RBC Hgb Hct MCV MCH MCHC RDW Plt Count MPV Immature Gran % Neutrophils % Lymphocytes % Monocytes % Eosinophils % Basophils % Nucleated RBC % Absolute Neutrophils Absolute Lymphocytes Absolute Monocytes Absolute Eosinophils Absolute Basophils Sodium Potassium Chloride Carbon Dioxide Anion Gap BUN Creatinine Estimated GFR/1.73 m2 Glucose Calcium Total Bilirubin AST ALT Alkaline Phosphatase Total Protein Albumin Lipase Urine Color Urine Clarity Urine pH Ur Specific [place] Urine Protein Urine Ketones Urine Blood Urine Nitrite Urine Bilirubin Urine Urobilinogen Ur Leukocyte Esterase Urine RBC Urine WBC Ur Epithelial Cells Urine Crystals Urine Bacteria Urine Casts Urine Mucus Urine Other Ur Culture Indicated? Urine Glucose COVID-19 Source Nasopharyx SARS-CoV-2 (PCR) Negative
--- NOTE | 2020-10-27 12:22 | DSE_ITS ---
Date of service: 10/27/20 Time of Service: 12:22 DS: Diagnosis Discharge Diagnosis (1) Acute appendicitis: Status: Acute Discharge Plan Disposition Patient Disposition: HOME Condition: Stable Discharge Details Reason For Visit: ACUTE APPENDICITIS Admit Date/Time: 10/26/20 18:30 Admit Provider: Niko Calvin Attending Provider: Niko Calvin Primary Care Provider: None,None Hospital Course Hospital Course: 35-year-old healthy lady with 18-hour history right-sided abdominal pain. Focally tender in right lower quadrant, mild leukocytosis and CT imaging consistent with acute appendicitis. Patient was evaluated in the emergency department and taken to the operating room on the evening of admission. An acutely inflamed but nonperforated appendix was removed with laparoscopic appendectomy. At 12 hours postop patient was feeling improved in regard to abdominal discomfort. She was tolerating liquids without nausea or emesis. She had used modest amounts of IV narcotic pain medication with decent control. She was looking forward to trialing oral pain medications. If patient is able to ambulate, have pain controlled with oral medications and remain stable over the next several hours a discharge to home is planned. Follow-up with general surgery office in [facility] advised for about 10 days postop Home Meds and New Rx's Prescriptions: New tramadol 50 mg Tablet 50 mg PO Q6H PRN PRN (Reason: Pain) Qty: 12 RF: 0 ibuprofen [IBU] 600 mg Tablet 600 mg PO Q6H PRN PRN (Reason: Pain) Qty: 0 RF: 0 Continued norethindrone ac-eth estradiol [Microgestin 08/03 ()] 1 EACH tablet 1 tab PO DAILY RF: 0 Discharge Instructions Instructions: Laparoscopic Appendectomy (GEN) Stand Alone Forms: Nursing Discharge Form Referrals: Danni Saucedo DO [OSTEOPATHIC DOCTOR] - 11/07/20 2:30 pm Activity:: No activity which causes Equipment/Supplies:: No Equipment Needed Diet:: As Tolerated Discharge Orders Discharge Orders: Discharge Order (Routine); Ordered 10/27/20 Ordered By: Niko Calvin Discharge Data Discharge Date/Time-TO BE ENTERED AT DEPARTURE: 10/27/20 15:22 Discharge Comment: Needs Gen Surgery office appt in about 10 days DS: Summary Time Spent with Patient providing and/or coordinating discharge services: Less than 30 minutes Specific discharge activities: - frequent ambulation - use Benefiber 2T daily to mitigate constipation - avoid lifting or strainingactivity which causes straining of abdominal muscles for 4 weeks Status at Discharge Functional status at discharge: independent ambulation Overall status at discharge: patient is progressing back to baseline Mental Status: mental status grossly normal Speech and Movement: speech and movement normal Mood: congruent mood Affect: normal affect Quality: VTE Deep Vein Thrombosis/Pulmonary Embolism Present on Admission: No Exam Const General: cooperative and no acute distress Orientation: alert Resp Effort & Inspection: normal respiratory effort and able to speak in complete sentences Cardio Rate: regular rate GI Inspection: normal to inspection and other (Trochar sites without ecchymosis or swelling. Minimally tender) Skin General skin exam: turgor normal Psych Mental Status: mental status grossly normal Speech and Movement: speech and movement normal Mood: congruent mood Affect: normal affect DS: Data Vitals/I&O Vitals and I&O: Vital Signs Temperature 99.1 F 10/27/20 11:20 Temperature Source Temporal Artery Scan 10/27/20 11:20 Pulse 83 10/27/20 11:20 Pulse Rhythm Regular 10/27/20 07:35 Respiratory Rate 16 10/27/20 11:20 Respiratory Effort 10/27/20 07:35 Respiratory Depth Normal 10/27/20 07:35 Respiratory Pattern Normal 10/27/20 07:35 Blood Pressure 119/79 10/27/20 11:20 Blood Pressure Position Sitting 10/26/20 15:03 Pulse Oximetry 98 10/27/20 11:20 Respiratory End-tidal CO2 32 10/26/20 22:19 Oxygen Delivery Method Room Air 10/27/20 11:20 Oxygen Flow Rate 0 10/27/20 11:20 Pain Level 5 10/27/20 11:20 Comment 10/27/20 08:26 Intake & Output 10/26/20 10/27/20 10/27/20 23:59 11:59 23:59 Intake Total 2550 / 2550 839.583 / 839.583 Output Total 400 / 400 Balance 2550 / 2550 439.583 / 439.583 Weight 74.843 kg Intake: IV 2550 / 2550 839.583 / 839.583 Output: Urine 400 / 400 Other: Urine Color Yellow Urine Appearance Clear Urine Odor None Emesis Description None Voiding Methods Toilet Data Completed and Pending Labs on day of discharge: Labs from last 24 hours 10/26/20 10/26/20 10/26/20 17:21 16:23 15:20 WBC 12.56 H RBC 4.17 Hgb 13.2 Hct 38.9 MCV 93.3 MCH 31.7 MCHC 33.9 RDW 12.5 Plt Count 182 MPV 10.2 Immature Gran % 0.3 Neutrophils % 85.2 Lymphocytes % 7.8 Monocytes % 6.4 Eosinophils % 0.0 Basophils % 0.3 Nucleated RBC % 0 Absolute Neutrophils 10.70 H Absolute Lymphocytes 0.98 L Absolute Monocytes 0.80 Absolute Eosinophils 0.00 Absolute Basophils 0.04 Sodium Potassium Chloride Carbon Dioxide Anion Gap BUN Creatinine Estimated GFR/1.73 m2 Glucose Calcium Total Bilirubin AST ALT Alkaline Phosphatase Total Protein Albumin Lipase Urine Color Yellow Urine Clarity Clear Urine pH 6.0 Ur Specific [place] >= 1.030 H Urine Protein Negative Urine Ketones >=160 H Urine Blood Trace-lysed H Urine Nitrite Negative Urine Bilirubin Negative Urine Urobilinogen 0.2 Ur Leukocyte Esterase Negative Urine RBC 0-2 Urine WBC 0-2 Ur Epithelial Cells Moderate Urine Crystals Negative Urine Bacteria Negative Urine Casts Negative Urine Mucus Trace Urine Other Negative Ur Culture Indicated? No Urine Glucose Negative COVID-19 Source Nasopharyx SARS-CoV-2 (PCR) Negative 10/26/20 15:20 WBC RBC Hgb Hct MCV MCH MCHC RDW Plt Count MPV Immature Gran % Neutrophils % Lymphocytes % Monocytes % Eosinophils % Basophils % Nucleated RBC % Absolute Neutrophils Absolute Lymphocytes Absolute Monocytes Absolute Eosinophils Absolute Basophils Sodium 136 Potassium 3.6 Chloride 97 L Carbon Dioxide 23.5 Anion Gap 15.5 H BUN 7 Creatinine 0.8 Estimated GFR/1.73 m2 >= 60.00 Glucose 92 Calcium 9.9 Total Bilirubin 1.5 H AST 37 ALT 46 Alkaline Phosphatase 86 Total Protein 8.4 H Albumin 4.1 Lipase 65 Urine Color Urine Clarity Urine pH Ur Specific [place] Urine Protein Urine Ketones Urine Blood Urine Nitrite Urine Bilirubin Urine Urobilinogen Ur Leukocyte Esterase Urine RBC Urine WBC Ur Epithelial Cells Urine Crystals Urine Bacteria Urine Casts Urine Mucus Urine Other Ur Culture Indicated? Urine Glucose COVID-19 Source SARS-CoV-2 (PCR) [facility] Medical History No significant past medical history Surgical History No significant past surgical history Family History Other Heart disease Social History Smoking/Tobacco Use Status: Never Smoking risk assessment performed?: Yes Alcohol Intake: never Drug use: Never Substance use type: does not use In current or past relationships, have you been: made to feel afraid Do you feel safe at home: Yes Do you feel safe in your relationship?: Yes
--- NOTE | 2020-10-27 14:07 | CHAPLAIN ---
I had a brief visit with Naomi this morning. She had her appendix removed. She's been in touch with family by phone. I explained my role and offered support.
--- NOTE | 2020-10-27 17:17 | PDOC.CMIN ---
- If Service Date Differs Date of service: 10/27/20 Time of Service: 17:17 Care Management Initial Assess REASON FOR HOSPITALIZATION:: Acute Appendicitis PAST MEDICAL HISTORY/PAST SURGICAL HISTORY:: No significant past medical history PREVIOUS FUNCTIONAL STATUS/SOCIAL/FAMILY SUPPORTS:: Naomi lives in [facility] with her S/O, [place], and their dogs. 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 She is independent at baseline. CURRENT FUNCTIONAL STATUS:: Naomi stated that she is feeling much better today, after having surgery late last night. CM verified that Naomi does not currently have insurace, and sent a referral to [employer], who called and discussed options for insurance. CM found Good RX coupons for her new presections. She will be discharged today. CM will continue to follow. ADVANCE DIRECTIVES:: none on file, CM will offer forms. Has patient been provided with info about the portal/API?: Yes Did the patient sign up for the portal?: No CODE STATUS:: Full Code INSURANCE COVERAGE / FINANCIAL ISSUES:: Self Pay, CM is assisting with insurance needs. CURRENT HOME/COMMUNITY SERVICES/EQUIPMENT:: No current services or surpport PRIMARY CARE PHYSICIAN:: No local PCP, CM will offer ED f/u if interested in follow up. POTENTIAL DISCHARGE NEEDS:: Follow up appointments, insurance. PATIENT/FAMILY EDUCATION NEEDS:: Review discharge instructions regarding activity levels and medications, discussion of self care needs. ANTICIPATED BARRIERS TO DISCHARGE:: None identified. TRANSPORTATION:: Via private vehicle by family. PLAN:: Anticipate Naomi will return home when medically cleared. Her s/o will drive her home via private vheicle. She will follow up with her Surgeon, her PCP, and her discharge plan of care. CM will continue to follow.
--- NOTE | 2020-10-27 17:28 | PDOC.CMDIS ---
- If Service Date Differs Date of service: 10/27/20 Time of Service: 17:28 LACE Index Scoring Tool - Questions: Length of Stay (in days): 1 Acuity (Admit via E.D.?): Yes E.D. Visits: 1 - Answers: Total Score: 5 Risk of Readmission: Low Risk Care Management Discharge Reason for Hospitalization: Acute Appendicitis Discharge Plan: Naomi will return home with no services today. She will follow up with her surgeon and her discharge plan of care. Her s/o will drive her home via private car. She is happy to be going home. Patient/Family Education Needs: Review discharge instructions regarding activity levels and medications, dissussion of self care needs.
== END 2020-10-27 15:22 | disposition home or self-care (01) | DRG 343 ==
LOC: ER 22:41 → SUR 22:41 → MS 22:41
PROVIDERS: Admitting Provider Surgery Vascular Surgery; Emergency Provider Physician Assistant; Visit Provider Surgery Vascular Surgery
PROC: 0DTJ4ZZ Resection of Appendix, Percutaneous Endoscopic Approach (ICD-10-PCS; CPT 44970; principal; 2020-10-26 17:35)
DX: K35.891 Other acute appendicitis without perforation, with gangrene (principal)
CPT/HCPCS: 44970; 36415; 80053; 81025; 83690; 87635; 96361; 96365; 96367; 96375; 96376; 99238; 99254; 99285; NC; 74177; 76705; 81003; 81015; 85025; 88304; J0131; J1100; J1885; J2001; J2250; J2270; J2405; J2543; J3010

== ENCOUNTER 2020-12-19 06:55 | Emergency (ER) | payer MEDICAID, SELFPAY ==
[2020-12-19 07:01] VITALS: BP 129/81; PULSE 92; RESP 18; TEMP 36.7; O2SAT 100
--- NOTE | 2020-12-19 07:06 | ED.GENADUL_ITS ---
Discharge Plan Disposition Patient Disposition: HOME Condition: Stable Discharge Details Clinical Impression: Colitis with rectal bleeding, Hypomagnesemia Primary Care Provider: None,None ED Provider: Omid Ramirez Home Meds and New Rx's Prescriptions: No Action No Known Home Meds RF: 0 Discharge Instructions Instructions: Rectal Bleeding (ED), Colitis (ED) Additional Instructions: Please drink plenty of fluids stay hydrated. Any fluid volume that you are losing in diarhea needs to be replaced orally with clear liquid. You were treated today in the emergency department with oral antibiotic azithromycin 1 g. You should expect to be feeling better within the next couple days. Stool cultures were collected today and are pending at time of discharge. Be sure to discuss these results with your doctor. Please follow-up with gastroenterology. . Please contact your primary care physician to arrange follow-up. Return to the ER for any worsening or new concerning symptoms. Discharge Data Discharge Date/Time-TO BE ENTERED AT DEPARTURE: 12/19/20 10:14 Medical Decision Making <Ty Herman MD - Last Filed: 12/19/20 23:52> Patient presenting with abdominal pain at this point localizing in the lower quadrant with diarrhea that she describes as pink tissue/bloody. Has not had this previously but has had GI problems for some time. She looks well. Her abdomen is fairly tender in the lower quadrants. We will go ahead and place IV and start fluids. Laboratory studies including stool studies were ordered. CT scan with IV contrast will be obtained. Patient care turned over to Dr. Ramirez. <Omid Ramirez MD - Last Filed: 01/06/21 23:11> Care signed out by Dr. Herman with plan to follow-up on labs, CT and reassess patient. Labs reviewed and hypomagnesemia noted. I will give magnesium 1 g. Patient also appears to have mild metabolic acidosis. I will give IV fluid bolus. CT of the abdomen pelvis was reviewed and interpreted by radiology who I spoke with: IMPRESSION: 1. Findings most suggestive of an infectious/inflammatory colitis involving the transverse, descending and sigmoid colons. 2. No abscess or free air. 3. Trace amount of free fluid in the pelvis. 4. 1.8 cm functional left ovarian cyst. 5. Hepatic steatosis. 6. Results of this exam have been verbally communicated with provider. Plan to treat with azithromycin 1 g p.o. Stool cultures pending. Results discussed with the patient and I provided a copy of the diagnostic imaging report to the patient. Advised to follow this up with her primary care physician and also follow-up with gastroenterology given her chronic symptoms. Patient was encouraged to drink plenty of fluids to stay hydrated and allow for rest. She was encouraged to return immediately for any worsening or new c oncerning symptoms. Usual customary discharge instructions otherwise reviewed with the patient. HPI <Ty Herman MD - Last Filed: 12/19/20 23:52> General Mode of arrival: ambulatory . Date/Time Provider Initiated Documentation: 12/19/20 07:05 . Limitations to Documentation: no limitations . Information obtained by: patient and RN notes reviewed . HPI Narrative: Patient presents to ED with worsening lower abdominal pain. Patient status post appendectomy in October. Reports over the last couple of weeks, she has been noticing stomach discomfort. Over the last few days it has been more persistent and last night has been constant low abdominal pain. She has now developed associated diarrhea with what she describes as pink tissue/blood. She denies nausea vomiting. She does have decreased appetite. She denies fevers or chills. There are no urinary symptoms. She has no vaginal discharge or bleeding. She should be getting her period in about 1 week. She denies any back pain. She denies travel, eating undercooked food, drinking from streams or lakes. She does report a long history dating back to high school of intermittent episodes of abdominal discomfort, diarrhea, constipation. Pain is quite persistent at this point isolated to the lower abdomen for the most part. Related Data Home Medications Medication Instructions Recorded Confirmed Unknown [No Known Home Meds] 12/19/20 12/19/20 Allergies Allergy/AdvReac Type Severity Reaction Status Date / Time No Known Allergies Allergy Unverified 12/19/20 07:08 General BAY: 3 Review of Systems <Ty Herman MD - Last Filed: 12/19/20 23:52> Narrative: 04/27 Review of Systems completed and is negative except as stated above in HPI (Systems reviewed: Const, Eyes, ENT, Resp, CV, GI, , MSK, Skin, Neuro) PFSH <Ty Herman MD - Last Filed: 12/19/20 23:52> Medical History (Updated 12/19/20 @ 09:30 by Omid Ramirez MD) No significant past medical history Surgical History S/P appendectomy Family History Other Heart disease Social History Smoking/Tobacco Use Status: Never Smoking risk assessment performed?: Yes Alcohol Intake: never Drug use: Never Substance use type: does not use Do you feel safe at home: Yes Do you feel safe in your relationship?: Yes Exam <Ty Herman MD - Last Filed: 12/19/20 23:52> Narrative Exam Narrative: Const: WDWN female in NAD. HEENT: NC/AT. Normal facial exam. Eyes: Normal conjunctiva and sclera. Neck: Supple. Trachea midline. Lungs: Normal respiratory effort. Lungs are clear. Cor: RRR without murmur/gallop. Good radial pulses. GI: Soft and ND. Diffusely tender in the lower quadrant but more so in the suprapubic and right side. Back: No CVAT Neuro: A+O x 3. Normal speech, mentation, gait. Cranial nerves II - XII grossly intact. No gross motor or sensory deficit. Ext: No C/C/E. Skin: Warm and dry without rash. Sign Out <Ty Herman MD - Last Filed: 12/19/20 23:52> Sign Out Data: Sign Out Comment: Pending labs and CT scan, reevaluation. Last updated by Ty Herman MD at 12/19/20 07:31
--- NOTE | 2020-12-19 07:15 | DI.CT_ITS ---
Exam(s) CT ABDOMEN PELVIS W EXAM: CT ABDOMEN PELVIS W CLINICAL HISTORY: lower abdominal pain, diarrhea,worsening over days TECHNIQUE: Imaging Protocol: Axial computed tomography images with coronal and sagittal reformatted images were created and reviewed CONTRAST MATERIAL: Intravenous: Omnipaque 350 Contrast volume:100 mL Oral: No COMPARISON: CT CT ABDOMEN PELVIS W from 10/26/2020 FINDINGS: ABDOMEN: Lung Bases: Normal where visualized. Liver: Hepatic steatosis. No measurable mass. Portal, Superior Mesenteric, and Splenic Veins: Unremarkable. Gallbladder and Biliary Tract: No radiodense calculus or dilation. Pancreas: Normal density, no abnormal calcifications or inflammatory process. Spleen: Normal. Adrenals: No masses seen. Kidneys: Normal size, contour and axis. No radiodense stones or obstructive uropathy. No masses seen. Note is made of a retroaortic left renal vein. Abdominal Aorta: Abdominal portion non-dilated. Bowel: No evidence of bowel obstruction. No evidence of appendicitis. There is diffuse thickening o f the wall of the distal transverse colon, descending colon and sigmoid colon. There is mild increas ed attenuation around the colon particularly the mid sigmoid colon. The findings are suspicious for an inflammatory/infectious colitis. Peritoneal Cavity: There is a trace amount of free fluid in the pelvis. No pneumoperitoneum. No diony e air. Lymph Nodes: Within normal limits. Bones: Within normal limits for the patient's age. Soft Tissues: Unremarkable. PELVIS: Bladder: Symmetric distention, no gross wall thickening. Reproductive Organs: Note are again suggestive of a bicornuate uterus. There is a 1.8 cm functional left ovarian cyst. Lymph Nodes: Within normal limits. Bones: Within normal limits for the patient's age. IMPRESSION: 1. Findings most suggestive of an infectious/inflammatory colitis involving the transverse, descendin g and sigmoid colons. 2. No abscess or free air. 3. Trace amount of free fluid in the pelvis. 4. 1.8 cm functional left ovarian cyst. 5. Hepatic steatosis. 6. Results of this exam have been verbally communicated with provider. RADIATION DOSE DELIVERED: 874.34mGy.cm Total DLP DATA REPOSITORY: All CT scans at this facility are submitted to the National Radiology Data Registry (NRDR) Dose Index Registry (DIR) with the [employer] (ACR). RADIATION OPTIMIZATION: All CT scans at this facility use at least one of these dose optimization te chniques: automated exposure control; mA and/or kV adjustment per patient size (includes targeted exa ms where dose is matched to clinical indication); or iterative reconstruction.
[2020-12-19 07:31] LABS: Abs Immature Grans 0.02 10^3/uL (0.0-0.06); Absolute Basophil Count 0.04 10^3/uL (0.0-0.2); Absolute Eosinophil Count 0.04 10^3/uL (0.0-0.7); Absolute Lymphocyte Count 1.86 10^3/uL (1.2-3.4); Absolute Monocyte Count 0.71 10^3/uL (0.1-0.8); Absolute Neutrophil Count 7.37 10^3/uL (1.2-6.7); Basophils % 0.4; Eosinophils % 0.4; HCT 38.1 % (36.0-46.0); HGB 13.4 g/dL (11.2-15.7); Immature Grans % 0.2; Lymphocytes % 18.5; MCH 31.4 pg (27.0-33.0); MCHC 35.2 % (32.0-36.0); MCV 89.2 fL (80-95); MPV 10.1 fL (8.0-11.0); Monocytes % 7.1; Neutrophils % 73.4; Nucleated RBC 0 %; Platelet Count 184 10^3/uL (130-400); RBC 4.27 10^6/uL (3.93-5.22); RDW 12.3 % (11.7-14.6); RDW-SD 40.5 fL; WBC 10.04 10^3/uL (4.4-10.8)
[2020-12-19 07:39] LABS: Lipase 70 U/L (73-393); Magnesium 1.4 mg/dL (1.8-2.4)
[2020-12-19 07:44] LABS: Bilirubin Negative (Negative); Blood Trace-intact (Negative); Clarity Clear (Clear); Glucose Negative (Negative); Ketones Trace mg/dL (Negative); Leukocyte Esterase Negative (Negative); Nitrite Negative (Negative); Urobilinogen 0.2 EU/dL (Up TO 0.2)
[2020-12-19 07:45] LABS: ALT 58 U/L (14-59); AST 57 U/L (15-37); Albumin 3.8 g/dL (3.4-5.0); Alkaline Phosphatase 85 U/L (46-116); Anion Gap 13.2 mmol/L (3-11); BUN 5 mg/dL (7-18); Bilirubin, Total 0.6 mg/dL (0.2-1.0); CO2 23.8 mmol/L (21.0-32.0); CREATININE 0.7 mg/dL (0.55-1.02); Calcium 9.2 mg/dL (8.5-10.1); Chloride 96 mmol/L (98-107); Glucose 89 mg/dL (74-106); Potassium 3.7 mmol/L (3.5-5.1); Sodium 133 mmol/L (136-145); Total Protein 7.9 g/dL (6.4-8.2)
[2020-12-19] MEDS: Normal Saline Flush 10 ML SYR IVP (07:52)
[2020-12-19] MEDS: Lactated Ringers 1,000 ML 125 ML IV (07:52)
[2020-12-19 07:58] LABS: Bacteria Few HPF (Negative); C & S Indicated? No; Casts Negative LPF (Negative); Crystals Negative HPF (Negative); Epithelial Cells Few HPF (Negative); Mucus Trace (Negative); RBC 0-2 HPF (0-2); WBC 0-2 HPF (0-5)
[2020-12-19] MEDS: Omnipaque 350 MG/ML 100 ML BTL IV (08:24)
[2020-12-19] MEDS: Normal Saline - Diluent 50 ML VIAL IV (08:25)
[2020-12-19 08:31] LABS: C Diff PCR Negative (Negative)
[2020-12-19] MEDS: Azithromycin 250 MG TAB 1000 MG PO (09:22)
[2020-12-19] MEDS: MAGNESIUM SULFATE 1 GM/100 ML BAG IVPB (09:24)
--- NOTE | 2020-12-19 09:32 | NUR.NOTE ---
Nursing Note: Referrals given to Care Management 1. [facility] Gastroenterology chronic GI symptoms, colitis, BECCA within 2 weeks. 2. Establish care ,colitis, chronic GI symptoms, routine follow up. Marce Burdick
[2020-12-19] MEDS: Lactated Ringers 500 ML IV (09:52)
[2020-12-19 10:00] VITALS: BP 133/88; PULSE 85; RESP 14; TEMP 37; O2SAT 98
[2020-12-19 23:24] LABS: Campylobacter PCR Negative (Negative); Salmonella PCR Negative (Negative); Shiga Toxin PCR Negative (Negative); Shigella/Enteroinvasive Ecoli Negative (Negative)
--- NOTE | 2020-12-23 16:08 | CMPROGNOTE_ITS ---
- If Service Date Differs Date of service: 12/23/20 Time of Service: 16:08 Care Management Progress Note Naomi is seen in the ED for colitis and hypomagnesemia. At the request of ED provider, CM coordinates referrals to [facility] and to Andreia Mccabe [facility], on-call provider, to assist Naomi in obtaining a follow up appointment and in establishing care with a PCP.
== END 2020-12-19 10:14 | disposition home or self-care (01) ==
PROVIDERS: Emergency Medicine; Emergency Provider Student in an Organized Health Care Education/Training Program
DX: K52.9 Noninfective gastroenteritis and colitis, unspecified (principal); K62.5 Hemorrhage of anus and rectum; E83.42 Hypomagnesemia
CPT/HCPCS: 36415; 80053; 81025; 83690; 87493; 87505; 96361; 96365; 99285; 74177; 81003; 81015; 83735; 85025; 99284; J3475; J3490

== ENCOUNTER 2021-08-10 11:37 | Inpatient (IN) | payer MEDICAID, SELFPAY ==
[2021-08-10] VITALS (55 sets, daily range): BP systolic 90–139; BP diastolic 53–97; PULSE 89–139; RESP 13–33; TEMP 37–37.6; O2SAT 90–98
--- NOTE | 2021-08-10 | DI.CT_ITS ---
Exam(s) CT CHEST/ABD/PEL WO EXAM: CT CHEST/ABD/PEL WO CLINICAL HISTORY: PUI for COVID-19, transaminitis TECHNIQUE: Imaging Protocol: Axial computed tomography images with coronal and sagittal reformatted images were created and reviewed CONTRAST MATERIAL: Imaging Protocol: Axial computed tomography images with coronal and sagittal refo rmatted images were created and reviewed. COMPARISON: CT CT ABDOMEN PELVIS W from 12/19/2020 FINDINGS: The examination is limited due to patient motion artifact. There is poor inspiration and low lung vo lumes. CHEST: Tracheobronchial tree: Patent where visualized. Pulmonary parenchyma: Dependent atelectatic changes are seen in the lungs secondary to poor inspirati on in the patient's low lung volumes. No focal consolidating infiltrates are seen. No architectural distortion. Mediastinum and Nisha: No dominant adenopathy or fluid collection. The esophagus is unremarkable. Thyroid gland: Unremarkable. Pleura: No effusion or pneumothorax. Heart: The heart is not dilated. No coronary artery calcifications are seen. No pericardial effusion. Aorta: Thoracic aorta non-dilated. Lymph nodes: Within normal limits. Bones:Within normal limits for the patient's age Soft tissues: Unremarkable. ABDOMEN: Liver: Diffuse decreased attenuation of the liver consistent with fatty infiltration. The liver simon ures 22 cm long. No measurable mass. Gallbladder and Biliary Tract: No radiodense calculus or dilation. Pancreas: Normal density, no abnormal calcifications or inflammatory process. Spleen: Normal. Adrenals: No masses seen. Kidneys: Normal size, contour and axis. No radiodense stones or obstructive uropathy. No masses seen. Note is made of a retroaortic left renal vein. Abdominal Aorta: Abdominal portion non-dilated. Bowel: No obstruction or bowel wall thickening. No evidence of appendicitis. There is low-attenuatio n in the submucosa scattered throughout various sections of the colon. There are inflammatory change s seen in the fat surrounding the ascending colon. Inflammatory bowel disease should be considered. Please correlate clinically. Peritoneal Cavity: No ascites, collection or mesenteric inflammatory response. No free air. Lymph Nodes: Within normal limits. Bones: Within normal limits for the patient's age. Soft Tissues: Unremarkable. PELVIS: Bladder: Symmetric distention, no gross wall thickening. Reproductive Organs: Unremarkable as visualized. Lymph Nodes: Within normal limits. Bones: Within normal limits. IMPRESSION: 1. Infiltrates along the posterior dependent portions of the lungs likely reflecting atelectasis seco ndary to the low lung volumes and poor inspiration. No focal consolidating infiltrates. 2. Mild inflammatory stranding seen around the ascending colon. Areas throughout the colon which martha w decreased attenuation in the submucosa. Inflammatory bowel disease may have this appearance. Plea se correlate clinically. 3. Hepatomegaly and hepatic steatosis. RADIATION DOSE DELIVERED: 1,377.39mGy.cm Total DLP 1,377.39mGy.cm Total DLP DATA REPOSITORY: All CT scans at this facility are submitted to the National Radiology Data Registry (NRDR) Dose Index Registry (DIR) with the [employer] (ACR). RADIATION OPTIMIZATION: All CT scans at this facility use at least one of these dose optimization te chniques: automated exposure control; mA and/or kV adjustment per patient size (includes targeted exa ms where dose is matched to clinical indication); or iterative reconstruction.
--- NOTE | 2021-08-10 11:45 | RT.EKG_ITS ---
APPROVED REPORT Exam: Resting ECG Reason for Exam: rapid heart rate Patient Location: E HR:113 bpm ECG Measurements Heart Rate 113 AXIS MN 176 P 57 QRSd 90 QRS 40 QT 338 T 31 QTc 463 Conclusion Sinus tachycardia...rate> 99
[2021-08-10] MEDS: Normal Saline 1,000 ML 1000 ML IV ×2 (12:15→13:19)
[2021-08-10] MEDS: MAGNESIUM SULFATE 1 GM/100 ML BAG IVPB (12:15)
[2021-08-10 12:28] LABS: Source Nasal/Nares
[2021-08-10] MEDS: LORazepam 2 MG/ML VIAL IVP ×5 (12:28→23:40)
[2021-08-10 12:33] LABS: Abs Immature Grans 0.03 10^3/uL (0.0-0.06); Absolute Eosinophil Count 0.01 10^3/uL (0.0-0.7); Absolute Lymphocyte Count 1.12 10^3/uL (1.2-3.4); Absolute Monocyte Count 0.47 10^3/uL (0.1-0.8); Absolute Neutrophil Count 2.16 10^3/uL (1.2-6.7); Basophils % 2.6; Eosinophils % 0.3; HCT 37.6 % (36.0-46.0); HGB 12.5 g/dL (11.2-15.7); Immature Grans % 0.8; Lymphocytes % 28.8; MCH 33.5 pg (27.0-33.0); MCHC 33.2 % (32.0-36.0); MCV 100.8 fL (80-95); MPV 10.5 fL (8.0-11.0); Monocytes % 12.1; Neutrophils % 55.4; Nucleated RBC 0 %; RBC 3.73 10^6/uL (3.93-5.22); RDW 15.8 % (11.7-14.6); RDW-SD 58.5 fL; WBC 3.89 10^3/uL (4.4-10.8)
[2021-08-10 12:47] LABS: ALT 131 U/L (14-59); AST 491 U/L (15-37); Albumin 3.3 g/dL (3.4-5.0); Alkaline Phosphatase 200 U/L (46-116); Anion Gap 15.5 mmol/L (3-11); BUN 3 mg/dL (7-18); Bilirubin, Total 1.4 mg/dL (0.2-1.0); CO2 24.5 mmol/L (21.0-32.0); CREATININE 0.8 mg/dL (0.55-1.02); Chloride 100 mmol/L (98-107); Glucose 137 mg/dL (74-106); Magnesium 1.5 mg/dL (1.8-2.4); PHOSPHORUS 5.1 mg/dL (2.6-4.7); Potassium 3.3 mmol/L (3.5-5.1); Sodium 140 mmol/L (136-145); Total Protein 7.3 g/dL (6.4-8.2)
[2021-08-10 12:50] LABS: ETHANOL BLOOD 447.8 mg/dL (<10)
[2021-08-10 12:51] LABS: Troponin I 231 ng/L (<or=60)
[2021-08-10 12:58] LABS: Platelet Count 87 10^3/uL (130-400)
[2021-08-10 12:59] LABS: Diff Comment Agrees w/ Instrument; RBC Morphology Normal
--- NOTE | 2021-08-10 13:00 | DI.US_ITS ---
APPROVED REPORT EXAM: Comprehensive 2D, Doppler, and color-flow Echocardiogram Patient Location: ER Room/Bed: 1 [employer] Counselor: Malaiak Lim RDCS (AE) Indications: Elevated troponin, ETOH Other Information Study Quality: Adequate. Technically limited study due to body habitus, inability to position patient , bedside er done supine. Conclusion Left Ventricle : The left ventricle is normal size. The left ventricular ejection fraction is within the normal range. There is normal left ventricular wall thickness. There is normal LV segmental wall motion. LVEF is 58%. Right Ventricle : Right ventricle is grossly normal in size. Right ventricular systolic function is g rossly normal. The RVSP is 18.3 mmHg. Atria : The left atrium size is normal. The right atrium size is normal. Mitral Valve : The mitral valve is normal in structure. Mild mitral regurgitation. No evidence of arlette ral valve stenosis. Great Vessels : The aortic root is normal in size. The ascending aorta is normal in size. Aortic arch is normal in caliber. IVC is normal in size and collapses >50% with inspiration. See remainder of study for further details. Wall motion Left Ventricle The left ventricle is normal size. The left ventricular ejection fraction is within the normal range. There is normal left ventricular wall thickness. There is normal LV segmental wall motion. There is no ventricular septal defect visualized. LVEF is 58%. Right Ventricle Right ventricle is grossly normal in size. Right ventricular systolic function is grossly normal. The RVSP is 18.3 mmHg. Atria The left atrium size is normal. The right atrium size is normal. The interatrial septum is intact wit h no evidence for an atrial septal defect. Aortic Valve The aortic valve is normal in structure. Aortic valve is trileaflet. There is no aortic valvular sten osis. No aortic regurgitation is present. Mitral Valve The mitral valve is normal in structure. No evidence of mitral valve stenosis. Mild mitral regurgitat ion. Tricuspid Valve The tricuspid valve is normal in structure. There is no tricuspid valve stenosis. Trace tricuspid reg urgitation. Pulmonic Valve The pulmonary valve is normal in structure. There is no pulmonic valvular stenosis. There is no pulmo natali valvular regurgitation. Great Vessels The aortic root is normal in size. The ascending aorta is normal in size. Aortic arch is normal in ca liber. IVC is normal in size and collapses >50% with inspiration. Pericardium There is no pericardial effusion. 2D Dimensions IVSD d PLAX 0.83 cm F: 0.6-1.0 LV Vol A2C d MOD 86.1 mL LVPW d PLAX 0.88 cm F: 0.6 - 1.0 LV Vol A4C d MOD 108.1 mL LVID d PLAX 4.83 cm F: 3.8 - 5.2 LA vol/ BSA A2C s A-L 17.4 mL/m2 LVDs 3.30 cm F: 2.2 - 3.5 LA vol/ BSA A4C s A-L 21.5 mL/m2 Ao Root d 3.14 cm F: 2.7 - 3.3 LA Vol/ BSA Biplane s A-L 21.6 mL/m2 RA Area A4C 7.93 cm2 LA Area A4C s MOD 16.37 cm2 RA Vol/ BSA A4C s A-L 7.0 mL/m2 LA Area A2C s MOD 13.14 cm2 Ao Asc Diam d 2.66 cm F: 2.3 - 3.1 LV EF A4C MOD 57.8 % LV EF Teichholz 59.1 % LV EF A2C MOD 59.8 % LVEF (Chandra's) 59.39 % F: 54 - 74 LV EF Biplane MOD 59.4 % LV Volume 73.45 mL F: 46 - 106 SV 58.53 mL LV Volume Index 36.00 mL/m2 F: 29 - 61 SV Index 28.71 mL/m2 LV Vol Biplane MOD 98.6 mL FS 31.35 % M-Mode TAPSE 1.92 cm (M/F) >1.7 LV Diastology MV E' lateral 0.187 (>0.1 m/s) E/A Ratio 1.8 LV E/e LAT 4.90 (<14) MV E Vmax 0.92 (0.4-1.3 m/s) MV E/E' lateral 4.90 MV A Vmax 0.50 (0.4-1.3 m/s) MV E/A Ratio 1.78 Aortic Valve LVOT Area 3.17 cm2 AoV Area Vmax 2.30 cm2 LVOT Vmax 1.04 m/s AoV Area/ BSA (Vmax) 1.13 cm2/m2 LVOT Mean Wesley. 0.72 m/s ABDI Mean Wesley. 2.07 cm2 LVOT Peak Grad 4.4 mmHg ABDI Mean Wesley. Index 1.01 cm2/m2 LVOT Mean Grad 2.4 mmHg LVOT VTI 0.190 m LVOT Diam s 2.00 cm AoV Vmax 1.44 m/s Velocity Ratio 0.72 AoV Mean Wesley. 1.10 m/s AoV Peak Grad 8.3 mmHg LVOT SV 60.26 mL AoV Mean Grad 5.3 mmHg AoV VTI 0.246 m AoV Area VTI 2.45 cm2 AoV Area/ BSA (VTI) 1.20 cm/m2 Mitral Valve MV DT 186 (160-240 msec) MV PHT 54 msec MV Area PHT 4.07 cm2 MV VTI 0.190 m MV Area VTI 3.16 (4.0-6.0 cm2) Pulmonary Valve PV Vmax 1.09 (0.5-1.5 m/s) RVOT Peak Gr. 3.05 mmHg PV Peak Grad 4.7 mmHg RVOT Mean Gr. 1.95 mmHg PV Mean Grad 3.4 mmHg RVOT VTI 0.164 m PV VTI 0.214 m RVOT Vmax 0.87 m/s Tricuspid Valve TR Peak Grad 15.2 mmHg TR Vmax 1.96 m/s RA Pressure 3.00 mmHg RVSP (TR) 18.3 mmHg
--- NOTE | 2021-08-10 13:09 | ED.GENADUL_ITS ---
Discharge Plan Disposition Patient Disposition: HOME Condition: Critical Discharge Details Clinical Impression: Alcohol withdrawal, Alcohol abuse, Elevated troponin Primary Care Provider: None,None ED Provider: Tasha Uriostegui Discharge Data Discharge Date/Time-TO BE ENTERED AT DEPARTURE: 08/10/21 16:26 Medical Decision Making Patient is alert and oriented, on telemetry she is notably tachycardic, EKG shows sinus tachycardia with normal QTC, this was repeated x2 Initially was elevated at [id number], repeat is similar Patient denies any chest pain and is alert and oriented at this point her blood alcohol level 97, she does show evidence of acute withdrawal and she is treated for withdrawal throughout this encounter Given her electrolyte abnormalities including a magnesium of 1.5 and a potassium of 3.3, she is given a banana bag with thiamine and potassium after consulting with the pharmacist and also magnesium 1 g She is given 2 L bolus of normal saline for acute dehydration with a gap of 18 Chest x-ray does not show acute abnormality, head CT was ordered secondary to auditory and visual hallucination I suspect this patient is in acute alcohol withdrawal, and is curious but she is having alcohol withdrawal with a blood alcohol 47, however I suspect she drinks significantly more than she is endorsing She is not She has no pain She is agreeable to admission at this time She did need to have an observer secondary to anxiety and repeatedly climbing out of bed, this was initiated Denies suicidal or homicidal ideation Maintain on telemetry monitoring Ativan was given protocol After troponin came back elevated with history of alcoholism I did order a bedside ultrasound that did not show significant acute abnormality no hypoxia or dyspnea, no tachypnea, suspicion for PE clinically Ammonia negative for acute abnormality, CPK mildly elevated at 327 Phosphorus elevated Case was discussed with Dr. Strickland, she is agreeable to admission at this time after 2 troponins and 2 EKGs Patient will be admitted to the ICU for acute alcohol withdrawal She is resting comfortably at time of reassessment, she is maintained on telemetry throughout the entirety of this assessment Her partner does have Covid, she has a negative Covid but we will maintain her as a PUI secondary to risk Medical Records Medical records reviewed: Yes I reviewed the patient's medical records. Lab Data Lab results reviewed: Yes I reviewed the patient's lab results. ECG Data Prior ECG tracings: available for review HPI General Mode of arrival: ambulatory . Date/Time Provider Initiated Documentation: 08/10/21 11:50 . Limitations to Documentation: altered mental status . Information obtained by: patient, family and RN/MD . HPI Narrative: This 35-year-old female with history of anxiety and alcoholism Related Data Home Medications Medication Instructions Recorded Confirmed lorazepam 0.5 - 1 mg PO BID PRN 08/10/21 08/10/21 propranolol 20 mg PO DAILY 08/10/21 08/10/21 trazodone 1 - 3 PO .QHS PRN 08/10/21 Allergies Allergy/AdvReac Type Severity Reaction Status Date / Time No Known Allergies Allergy Unverified 08/10/21 12:02 General Stated Complaint: PsychEval BAY: 2 Review of Systems Narrative: Limited secondary to mental status PFSH All Active Problems (Updated 08/12/21 @ 20:11 by VIKA Luther) Respiratory failure requiring intubation (Acute) Left upper lobe pneumonia (Acute) Ventricular fibrillation (Acute) V-tach (Chronic) Exposure to COVID-19 virus (Acute) Alcoholic hepatitis (Acute) Lactic acidosis (Acute) Pancytopenia (Acute) Cardiac arrest (Acute) Elevated troponin (Acute) Alcohol abuse (Chronic) Transaminitis (Acute) Alcohol withdrawal (Acute) Colitis with rectal bleeding (Acute) Medical History (Updated 08/12/21 @ 20:11 by VIKA Luther) Abdominal pain Acute appendicitis Anxiety Panic disorder Surgical History S/P appendectomy Family History Other Heart disease Social History Smoking/Tobacco Use Status: Never Smoking risk assessment performed?: Yes Alcohol Intake: never Counseling given: Yes Counseling provided: provider counseling Drug use: Never Substance use type: does not use Do you feel safe at home: Yes Do you feel safe in your relationship?: Yes Exam Const General: cooperative and intoxicated appearing Orientation: alert and oriented x3 HENMT Head: normal to inspection Mouth: oral mucosae normal Other: No intraoral lesions Eyes Pupils: PERRL Resp Effort & Inspection: normal respiratory effort and able to speak in complete sentences Cardio Rate: tachycardic Rhythm: regular rhythm GI Inspection: normal to inspection Other: non-tender Skin Other: diaphoretic Neuro General: patient alert and patient oriented x3 Cranial Nerves: PERRL Sensory Exam: no sensory deficits noted Extrem Other: No peripheral edema, distal pulses intact she is injury but I think again to but she is also not hard to get an attempt she has Tylenol I ordered another little bit of. Any ordered antibiotic possible allergic reaction ceftriaxone 3days nature lisinopril and will admit her but tender over the left leg chest or belly, 3 days ago she lost her balance and corner of a wall. Like she did she like a significant trauma she might of strained her BMP to her blood pressure with above she Course Vital Signs Vital signs: Vital Signs Temperature 37.6 C 08/10/21 11:51 Pulse 113 H 08/10/21 11:51 Respiratory Rate 21 08/10/21 11:51 Blood Pressure 139/97 H 08/10/21 11:51 Temperature 37.6 C 08/10/21 11:51 Temperature Source Skin 08/10/21 11:51 Pulse 113 H 08/10/21 11:51 Respiratory Rate 21 08/10/21 11:51 Respiratory Effort 08/10/21 11:51 Respiratory Pattern Normal 08/10/21 12:30 Blood Pressure 139/97 H 08/10/21 11:51 Blood Pressure Position Supine 08/10/21 11:51 Pain Level 0 08/10/21 11:51 Lab/Test Results Lab/Test Results: Laboratory Tests Range/Units 08/10/21 08/10/21 08/10/21 11:45 11:45 12:20 WBC (4.4-10.8) 10^3/uL 3.89 L RBC (3.93-5.22) 10^6/uL 3.73 L Hgb (11.2-15.7) g/dL 12.5 Hct (36.0-46.0) % 37.6 MCV (80-95) fL 100.8 H MCH (27.0-33.0) pg 33.5 H MCHC (32.0-36.0) % 33.2 RDW (11.7-14.6) % 15.8 H Plt Count (130-400) 10^3/uL 87 L MPV (8.0-11.0) fL 10.5 Immature Gran % 0.8 Neutrophils % 55.4 Lymphocytes % 28.8 Monocytes % 12.1 Eosinophils % 0.3 Basophils % 2.6 Nucleated RBC % % 0 Absolute Neutrophils (1.2-6.7) 10^3/uL 2.16 Absolute Lymphocytes (1.2-3.4) 10^3/uL 1.12 L Absolute Monocytes (0.1-0.8) 10^3/uL 0.47 Absolute Eosinophils (0.0-0.7) 10^3/uL 0.01 Absolute Basophils (0.0-0.2) 10^3/uL 0.10 RBC Morphology Normal Sodium (136-145) mmol/L 140 Potassium (3.5-5.1) mmol/L 3.3 L Chloride (98-107) mmol/L 100 Carbon Dioxide (21.0-32.0) mmol/L 24.5 Anion Gap (3-11) mmol/L 15.5 H BUN (7-18) mg/dL 3 L Creatinine (0.55-1.02) mg/dL 0.8 Estimated GFR/1.73 m2 (mL/min/1.73m2) >= 60.00 Glucose (74-106) mg/dL 137 H Calcium (8.5-10.1) mg/dL 8.0 L Phosphorus (2.6-4.7) mg/dL 5.1 H Magnesium (1.8-2.4) mg/dL 1.5 L Total Bilirubin (0.2-1.0) mg/dL 1.4 H AST (15-37) U/L 491 H ALT (14-59) U/L 131 H Alkaline Phosphatase (46-116) U/L 200 H Troponin I (<or=60) ng/L 231 H* Total Protein (6.4-8.2) g/dL 7.3 Albumin (3.4-5.0) g/dL 3.3 L Ethyl Alcohol (<10) mg/dL 447.8 H COVID-19 Source Nasal/Nares Critical Care Time Critical Care Time Critical Care Time: Yes Total Critical Care Time: 70 Attestation: Telemetry monitoring, IV fluid resuscitation, and IV Ativan, IV banana bag, IV diagnostic lab, IV diagnostic imaging CT head, admission to hospital intensive care unit PAWSS Have you Been Recently Intoxicated or Drunk Within the Last 30 days?: Yes Have you Ever Experienced Previous Episodes of Alcohol Withdrawal?: Yes Have you ever Experienced Withdrawal Seizures?: No Have you ever Experienced Delirium Tremens(DT)s?: No Have you ever undergone Alcohol Rehabilitation Treatment (i.e, inpt ot outpatient treatment programs)?: No Have you ever Experienced Blackouts?: Yes Have you ever Combined Alcohol with other Downers within the last 90 days?: No Have you ever Combined Alcohol with any other Substance of Abuse during the last 90 days?: No Result: 3
[2021-08-10 13:14] LABS: COVID-19 PCR Negative (Negative); Influenza A PCR Negative (Negative); Influenza B PCR Negative (Negative); RSV PCR Negative (Negative)
[2021-08-10 13:23] LABS: BE (Venous) -1 mmol/L (-2-3); HCO3 (Venous) 24 mmol/L (23-28); O2 Sat (Venous) 90 %; TCO2 (Venous) 22 mmol/L (24-29); pCO2 (Venous) 37 mmHg (41-51); pH (Venous) 7.42 (7.31-7.41); pO2 (Venous) 65 mmHg
[2021-08-10 13:33] LABS: Lipase 211 U/L (73-393)
[2021-08-10 13:38] LABS: Creatine Kinase 357 U/L (26-192)
--- NOTE | 2021-08-10 13:45 | DI.CT_ITS ---
Exam(s) CT HEAD WO EXAM: CT HEAD WO CLINICAL HISTORY: delirium. TECHNIQUE: Imaging Protocol: Axial computed tomography images with coronal and sagittal reformatted images were created and reviewed COMPARISON: No exams were available for comparison FINDINGS: Ventricles and Extra axial spaces: Normal in size and morphology for the patient's age. Hemorrhage: None. Cerebral parenchyma: Normal. Midline shift: None. Brainstem/Cerebellum: Normal. Calvarium: Normal. Visualized Paranasal sinuses/Mastoids: Clear. Soft Tissues: Unremarkable. IMPRESSION: 1. No acute intracranial process. 2. Results of this exam have been verbally communicated with provider. RADIATION DOSE DELIVERED: 728.3mGy.cm Total DLP DATA REPOSITORY: All CT scans at this facility are submitted to the National Radiology Data Registry (NRDR) Dose Index Registry (DIR) with the [employer] ([employer]). RADIATION OPTIMIZATION: All CT scans at this facility use at least one of these dose optimization te chniques: automated exposure control; mA and/or kV adjustment per patient size (includes targeted exa ms where dose is matched to clinical indication); or iterative reconstruction.
[2021-08-10 13:50] LABS: HCG Qual (Serum) Negative
--- NOTE | 2021-08-10 14:30 | RT.EKG_ITS ---
APPROVED REPORT Exam: Resting ECG Reason for Exam: elevated trop Patient Location: E HR:112 bpm ECG Measurements Heart Rate 112 AXIS PA 176 P 33 QRSd 83 QRS 31 QT 348 T 31 QTc 475 Conclusion Sinus tachycardia No ST elevation
[2021-08-10 15:15] LABS: Troponin I 203 ng/L (<or=60)
[2021-08-10] MEDS: Normal Saline 500 ML IV (15:25)
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
[2021-08-10 15:44] LABS: Ammonia < 10 umol/L (11-32)
[2021-08-10 17:17] LABS: INR 1.2 (0.9-1.1); Prothrombin Time 11.9 sec (9.3-11.0)
[2021-08-10 17:24] LABS: C-Reactive Protein < 0.05 mg/dL (0.0-0.3)
[2021-08-10 17:37] LABS: D-Dimer 2802 ng/mlFEU (<500)
[2021-08-10 18:08] LABS: Ferritin 1625 ng/mL (8-252)
[2021-08-10] MEDS: MAGNESIUM SULFATE 2 GM/50 ML BAG IVPB (19:00)
[2021-08-10] MEDS: LORazepam 1 MG TAB PO/SL ×2 (19:13→20:32)
[2021-08-10] MEDS: Normal Saline Flush 10 ML SYR IVP (19:31)
[2021-08-10 19:42] LABS: *AMPHETAMINES SCREEN URINE Negative (Negative); *BARBITURATES SCREEN URINE Negative (Negative); *BENZODIAZEPINES SCREEN URINE Negative (Negative); Cannabinoids THC Negative (Negative); Cocaine Screen,Urine Negative (Negative); METHADONE URINE SCREEN Negative (Negative); OPIATES URINE SCREEN Negative (Negative); Tricyclic Antidepressants Negative (Negative)
[2021-08-10 19:44] LABS: Bilirubin Negative (Negative); Blood Negative (Negative); Clarity Clear (Clear); Glucose Negative (Negative); Ketones Negative (Negative); Leukocyte Esterase Negative (Negative); Nitrite Negative (Negative); Specific Gravity 1.025 (1.005-1.025)
[2021-08-10] MEDS: Lactated Ringers 1,000 ML 125 ML IV (21:00)
--- NOTE | 2021-08-10 21:06 | NUR.NOTE ---
pending urine POC screen order not completed/chart. ED rn states pt unable to urinate - MD ordered HGC level and POC order should be DC'dNursing Note:
[2021-08-11] VITALS (57 sets, daily range): BP systolic 92–132; BP diastolic 50–90; PULSE 80–176; RESP 16–30; TEMP 36.5–36.6; O2SAT 76–100
--- NOTE | 2021-08-11 | DI.RAD_ITS ---
Exam(s) XR PORTABLE CHEST AP POST LINE EXAM: XR PORTABLE CHEST AP POST LINE CLINICAL HISTORY: follow up ET tube position TECHNIQUE: 2D digital imaging was performed of the chest. One image was obtained. An AP view was ob tained. COMPARISON: CR XR PORTABLE CHEST AP POST LINE from 08/11/2021 FINDINGS: MEDIASTINUM: Normal. HEART: Normal. PULMONARY VASCULATURE: Normal. LUNGS: The infiltrate previously seen in the left upper lobe is less prominent on the current examina tion. No new infiltrates are seen. Portions of the left lung base medially are obscured by overlyin g monitoring equipment. PLEURAL SPACE: No pleural effusion or pneumothorax. BONE:Within normal limits for the patient's age. OTHER FINDINGS:The tip of the ET tube is 4.5 cm above the gil. The orogastric tube is coiled in t he stomach. The tip of the OG tube is directed cephalad toward the gastric cardia. IMPRESSION: The tip of the endotracheal tube is 4.5 cm above the gil. DATA REPOSITORY: RADIATION DOSE DELIVERED:
--- NOTE | 2021-08-11 | DI.US_ITS ---
APPROVED REPORT EXAM: Comprehensive 2D, Doppler, and color-flow Echocardiogram Patient Location: In-Patient Room/Bed: [id number] Employee Benefits Manager: Malaika Lim RDCS (AE) Indications: s/p cardiac arrest limited study. Complete study done 08/10/21 Other Information Study Quality: Technically Difficult. Technically limited study due to patient on ventilator, inabili ty to position patient. Conclusion This is a limited study following cardiac arrest Left ventricular wall thickness and chamber size are normal. Estimated ejection fraction is 55 to 60 %. There are no segmental wall motion abnormalities Right ventricular size and systolic function appear within the range of normal Both atria are normal in size No structural valvular abnormalities are identified Wall motion
[2021-08-11] MEDS: LORazepam 1 MG TAB PO/SL (03:40)
[2021-08-11] MEDS: Lactated Ringers 1,000 ML 125 ML IV (06:53)
[2021-08-11 07:14] LABS: Abs Immature Grans 0.01 10^3/uL (0.0-0.06); Absolute Basophil Count 0.05 10^3/uL (0.0-0.2); Absolute Eosinophil Count 0.02 10^3/uL (0.0-0.7); Absolute Lymphocyte Count 0.68 10^3/uL (1.2-3.4); Absolute Neutrophil Count 1.36 10^3/uL (1.2-6.7); Basophils % 2.1; Eosinophils % 0.8; HCT 29.8 % (36.0-46.0); HGB 9.8 g/dL (11.2-15.7); Immature Grans % 0.4; Lymphocytes % 28.1; MCH 33.2 pg (27.0-33.0); MCHC 32.9 % (32.0-36.0); MPV 10.8 fL (8.0-11.0); Monocytes % 12.4; Neutrophils % 56.2; Nucleated RBC 0 %; RBC 2.95 10^6/uL (3.93-5.22); RDW 15.7 % (11.7-14.6); RDW-SD 58.3 fL; WBC 2.42 10^3/uL (4.4-10.8)
[2021-08-11 07:43] LABS: INR 1.1 (0.9-1.1); Prothrombin Time 11.2 sec (9.3-11.0)
[2021-08-11 07:48] LABS: ALT 106 U/L (14-59); AST 455 U/L (15-37); Albumin 2.6 g/dL (3.4-5.0); Alkaline Phosphatase 156 U/L (46-116); Anion Gap 12.8 mmol/L (3-11); BUN 2 mg/dL (7-18); Bilirubin, Total 2.3 mg/dL (0.2-1.0); CO2 21.2 mmol/L (21.0-32.0); CREATININE 0.5 mg/dL (0.55-1.02); Calcium 7.2 mg/dL (8.5-10.1); Chloride 102 mmol/L (98-107); Creatine Kinase 211 U/L (26-192); Glucose 74 mg/dL (74-106); Magnesium 1.8 mg/dL (1.8-2.4); Potassium 3.9 mmol/L (3.5-5.1); Sodium 136 mmol/L (136-145); Total Protein 5.8 g/dL (6.4-8.2)
[2021-08-11 07:57] LABS: C-Reactive Protein < 0.05 mg/dL (0.0-0.3)
[2021-08-11 08:02] LABS: Platelet Count 60 10^3/uL (130-400)
[2021-08-11 08:05] LABS: D-Dimer 3277 ng/mlFEU (<500)
[2021-08-11] MEDS: EPINEPHrine 1 MG/10 ML SYR IVP ×4 (08:40→08:52)
[2021-08-11] MEDS: Amiodarone 150 MG/3 ML VIAL 300 MG IVP ×2 (08:45→08:50)
[2021-08-11] MEDS: MAGNESIUM SULFATE 2 GM/50 ML BAG 200 GM (08:45)
[2021-08-11 08:46] LABS: Vitamin B12 1542 pg/mL (193-986)
[2021-08-11] MEDS: Calcium Gluconate 4.65 MEQ/10 ML VIAL 4.65 MG IVP (08:52)
[2021-08-11 08:53] LABS: Ferritin > 2000 ng/mL (8-252)
[2021-08-11] MEDS: PROPOFOL 1,000 MG/100 ML BTL 38.64 MG IVPB (09:00)
[2021-08-11] MEDS: MAGNESIUM SULFATE 2 GM/50 ML BAG 500 GM (09:02)
--- NOTE | 2021-08-11 09:26 | DI.RAD_ITS ---
Exam(s) XR PORTABLE CHEST AP POST LINE EXAM: XR PORTABLE CHEST AP POST LINE CLINICAL HISTORY: intubated patient TECHNIQUE: 2D digital imaging was performed of the chest. One image was obtained. An AP view was ob tained. COMPARISON: CT CT CHEST/ABD/PEL WO from 08/10/2021 FINDINGS: MEDIASTINUM: Normal. HEART: Normal. PULMONARY VASCULATURE: Normal. LUNGS: There is an airspace opacity in the left upper lobe. PLEURAL SPACE: No pleural effusion or pneumothorax. BONE:Within normal limits for the patient's age. OTHER FINDINGS:The endotracheal tube tip is at the level of the clavicle 4.8 cm from the gil. The enteric tube is coiled in the stomach. The tip is directed cephalad in the body. IMPRESSION: 1. New left upper lobe infiltrate suspicious for pneumonia. 2. Tip of the endotracheal tube is at the level of the clavicle 4.8 cm from the gil. 3. The enteric tube is coiled in the stomach. DATA REPOSITORY: RADIATION DOSE DELIVERED:
[2021-08-11 09:30] LABS: FIO2L 15 L
[2021-08-11 09:31] LABS: HCT 32.2 % (36.0-46.0)
[2021-08-11 09:31] LABS: FIO2 100 %
[2021-08-11 09:33] LABS: HCO3 13 mmol/L (22-26); pCO2 43 mmHg (35-45); pO2 73 mmHg (80-105); sO2 87 % (95-98); tCO2 13 mmol/L (23-27)
[2021-08-11 09:36] LABS: Site Arterial Line
[2021-08-11 09:41] LABS: Source Nasal/Nares
[2021-08-11 09:44] LABS: Lactate 13.3 mmol/L (0.6-1.4)
[2021-08-11 09:46] LABS: BE -14 mmol/L (-2-3); HCO3 13 mmol/L (22-26); pCO2 30 mmHg (35-45); pH 7.25 (7.35-7.45); pO2 248 mmHg (80-105)
[2021-08-11 09:46] LABS: Anion Gap 20.2 mmol/L (3-11); BUN 3 mg/dL (7-18); CO2 14.8 mmol/L (21.0-32.0); CREATININE 0.9 mg/dL (0.55-1.02); Chloride 103 mmol/L (98-107); Glucose 188 mg/dL (74-106); Potassium 3.7 mmol/L (3.5-5.1); Sodium 138 mmol/L (136-145)
--- NOTE | 2021-08-11 09:46 | PGE_ITS ---
Date of Service Date of service: 08/11/21 Time of Service: 09:47 Subjective Subjective Interval history since last seen: Responded to Code Blue at around 0840. The patient was noted to be going into Vtach on the monitor while awake, but reporting dizziness, after which she fainted, lost her pulse and became blue. The patient was in Vfib. Code blue called, compressions initiated. During the code, the patient received epi x 4, amiodarone load, bicarb, cacium gluconate, magnesium sulfate 6 grams, IVR (LR) with return of organized rhythm and pulse. The patient required defibrillation. When the pulse had returned, the patient started to move arms purposefully and was biting on the tube. She is currently intubated, sedated with propofol. She is on levophed gtt. She is on amiodarone and magnesium gtt. There were several times during this event during which torsades were suspected. Stat EKG, echo, and cardiology consults ordered. [facility] does not have ICU capacity for transfer. [facility] contacted. Objective Last Vital Signs Temp 36.6 C 08/11/21 04:10 Pulse 97 H 08/11/21 02:01 Resp 23 08/11/21 04:01 BP 99/75 L 08/11/21 04:01 Pulse Ox 95 08/11/21 04:01 Laboratory Results - last 24 hr 08/10/21 08/10/21 08/10/21 11:45 11:45 12:20 WBC 3.89 L RBC 3.73 L Hgb 12.5 Hct 37.6 MCV 100.8 H MCH 33.5 H MCHC 33.2 RDW 15.8 H Plt Count 87 L MPV 10.5 Immature Gran % 0.8 Neutrophils % 55.4 Band Neutrophils % Lymphocytes % 28.8 Atypical Lymphs % Monocytes % 12.1 Eosinophils % 0.3 Basophils % 2.6 Metamyelocytes % Myelocytes % Promyelocytes % Other Cells % Nucleated RBC % 0 Absolute Neutrophils 2.16 Absolute Lymphocytes 1.12 L Absolute Monocytes 0.47 Absolute Eosinophils 0.01 Absolute Basophils 0.10 RBC Morphology Normal Polychromasia Hypochromasia Poikilocytosis Basophilic Stippling Anisocytosis Microcytosis Macrocytosis Spherocytes Tear Drop Cells Ovalocytes Stomatocytes [place] Bodies [place] Cells/Echinocytes Acanthocytes (Spur) Schistocytes PT INR D-Dimer ABG Sample Site ABG pH ABG pCO2 ABG pO2 ABG HCO3 ABG Total CO2 ABG O2 Saturation ABG Base Excess VBG pH VBG pCO2 VBG pO2 VBG HCO3 VBG Total CO2 VBG O2 Saturation VBG Base Excess VBG Lactate Oxygen Liter Flow FiO2 Sodium 140 Potassium 3.3 L Chloride 100 Carbon Dioxide 24.5 Anion Gap 15.5 H BUN 3 L Creatinine 0.8 Estimated GFR/1.73 m2 >= 60.00 Glucose 137 H Calcium 8.0 L Phosphorus 5.1 H Magnesium 1.5 L Ferritin Total Bilirubin 1.4 H Conjugated Bilirubin AST 491 H ALT 131 H Alkaline Phosphatase 200 H Ammonia Creatine Kinase Troponin I 231 H* C-Reactive Protein Total Protein 7.3 Albumin 3.3 L Lipase Vitamin B12 Folate Serum HCG, Qual Urine Color Urine Clarity Urine pH Ur Specific [place] Urine Protein Urine Ketones Urine Blood Urine Nitrite Urine Bilirubin Urine Urobilinogen Ur Leukocyte Esterase Urine Glucose Urine Opiates Screen Urine Methadone Screen Ur Barbiturates Screen Ur Tricyclics Screen Ur Amphetamines Screen U Benzodiazepines Scrn Urine Cocaine Screen Ur THC Screen Ethyl Alcohol 447.8 H COVID-19 Source Nasal/Nares SARS-CoV-2 (PCR) Negative Influenza Type A (PCR) Negative Influenza Type B (PCR) Negative RSV (PCR) Negative 08/10/21 08/10/21 08/10/21 13:15 13:15 13:15 WBC RBC Hgb Hct MCV MCH MCHC RDW Plt Count MPV Immature Gran % Neutrophils % Band Neutrophils % Lymphocytes % Atypical Lymphs % Monocytes % Eosinophils % Basophils % Metamyelocytes % Myelocytes % Promyelocytes % Other Cells % Nucleated RBC % Absolute Neutrophils Absolute Lymphocytes Absolute Monocytes Absolute Eosinophils Absolute Basophils RBC Morphology Polychromasia Hypochromasia Poikilocytosis Basophilic Stippling Anisocytosis Microcytosis Macrocytosis Spherocytes Tear Drop Cells Ovalocytes Stomatocytes [place] Bodies [place] Cells/Echinocytes Acanthocytes (Spur) Schistocytes PT INR D-Dimer ABG Sample Site ABG pH ABG pCO2 ABG pO2 ABG HCO3 ABG Total CO2 ABG O2 Saturation ABG Base Excess VBG pH 7.42 H VBG pCO2 37 L VBG pO2 65 VBG HCO3 24 VBG Total CO2 22 L VBG O2 Saturation 90 VBG Base Excess -1 VBG Lactate Oxygen Liter Flow FiO2 Sodium Potassium Chloride Carbon Dioxide Anion Gap BUN Creatinine Estimated GFR/1.73 m2 Glucose Calcium Phosphorus Magnesium Ferritin Total Bilirubin Conjugated Bilirubin AST ALT Alkaline Phosphatase Ammonia Creatine Kinase Troponin I C-Reactive Protein Total Protein Albumin Lipase 211 Vitamin B12 Folate Serum HCG, Qual Negative Urine Color Urine Clarity Urine pH Ur Specific [place] Urine Protein Urine Ketones Urine Blood Urine Nitrite Urine Bilirubin Urine Urobilinogen Ur Leukocyte Esterase Urine Glucose Urine Opiates Screen Urine Methadone Screen Ur Barbiturates Screen Ur Tricyclics Screen Ur Amphetamines Screen U Benzodiazepines Scrn Urine Cocaine Screen Ur THC Screen Ethyl Alcohol COVID-19 Source SARS-CoV-2 (PCR) Influenza Type A (PCR) Influenza Type B (PCR) RSV (PCR) 08/10/21 08/10/21 08/10/21 13:15 14:49 14:50 WBC Cancelled RBC Cancelled Hgb Cancelled Hct Cancelled MCV Cancelled MCH Cancelled MCHC Cancelled RDW Cancelled Plt Count Cancelled MPV Cancelled Immature Gran % Cancelled Neutrophils % Cancelled Band Neutrophils % Cancelled Lymphocytes % Cancelled Atypical Lymphs % Cancelled Monocytes % Cancelled Eosinophils % Cancelled Basophils % Cancelled Metamyelocytes % Cancelled Myelocytes % Cancelled Promyelocytes % Cancelled Other Cells % Cancelled Nucleated RBC % Cancelled Absolute Neutrophils Cancelled Absolute Lymphocytes Cancelled Absolute Monocytes Cancelled Absolute Eosinophils Cancelled Absolute Basophils Cancelled RBC Morphology Cancelled Polychromasia Cancelled Hypochromasia Cancelled Poikilocytosis Cancelled Basophilic Stippling Cancelled Anisocytosis Cancelled Microcytosis Cancelled Macrocytosis Cancelled Spherocytes Cancelled Tear Drop Cells Cancelled Ovalocytes Cancelled Stomatocytes Cancelled [place] Bodies Cancelled [place] Cells/Echinocytes Cancelled Acanthocytes (Spur) Cancelled Schistocytes Cancelled PT INR D-Dimer ABG Sample Site ABG pH ABG pCO2 ABG pO2 ABG HCO3 ABG Total CO2 ABG O2 Saturation ABG Base Excess VBG pH VBG pCO2 VBG pO2 VBG HCO3 VBG Total CO2 VBG O2 Saturation VBG Base Excess VBG Lactate Oxygen Liter Flow FiO2 Sodium Potassium Chloride Carbon Dioxide Anion Gap BUN Creatinine Estimated GFR/1.73 m2 Glucose Calcium Phosphorus Magnesium Ferritin Total Bilirubin Conjugated Bilirubin AST ALT Alkaline Phosphatase Ammonia < 10 L Creatine Kinase 357 H Troponin I C-Reactive Protein Total Protein Albumin Lipase Vitamin B12 Folate Serum HCG, Qual Urine Color Urine Clarity Urine pH Ur Specific [place] Urine Protein Urine Ketones Urine Blood Urine Nitrite Urine Bilirubin Urine Urobilinogen Ur Leukocyte Esterase Urine Glucose Urine Opiates Screen Urine Methadone Screen Ur Barbiturates Screen Ur Tricyclics Screen Ur Amphetamines Screen U Benzodiazepines Scrn Urine Cocaine Screen Ur THC Screen Ethyl Alcohol COVID-19 Source SARS-CoV-2 (PCR) Influenza Type A (PCR) Influenza Type B (PCR) RSV (PCR) 08/10/21 08/10/21 08/10/21 14:50 17:00 17:00 WBC RBC Hgb Hct MCV MCH MCHC RDW Plt Count MPV Immature Gran % Neutrophils % Band Neutrophils % Lymphocytes % Atypical Lymphs % Monocytes % Eosinophils % Basophils % Metamyelocytes % Myelocytes % Promyelocytes % Other Cells % Nucleated RBC % Absolute Neutrophils Absolute Lymphocytes Absolute Monocytes Absolute Eosinophils Absolute Basophils RBC Morphology Polychromasia Hypochromasia Poikilocytosis Basophilic Stippling Anisocytosis Microcytosis Macrocytosis Spherocytes Tear Drop Cells Ovalocytes Stomatocytes [place] Bodies [place] Cells/Echinocytes Acanthocytes (Spur) Schistocytes PT 11.9 H INR 1.2 H D-Dimer 2802 H ABG Sample Site ABG pH ABG pCO2 ABG pO2 ABG HCO3 ABG Total CO2 ABG O2 Saturation ABG Base Excess VBG pH VBG pCO2 VBG pO2 VBG HCO3 VBG Total CO2 VBG O2 Saturation VBG Base Excess VBG Lactate Oxygen Liter Flow FiO2 Sodium Potassium Chloride Carbon Dioxide Anion Gap BUN Creatinine Estimated GFR/1.73 m2 Glucose Calcium Phosphorus Magnesium Ferritin 1625 H Total Bilirubin Conjugated Bilirubin AST ALT Alkaline Phosphatase Ammonia Creatine Kinase Troponin I 203 H* C-Reactive Protein < 0.05 Total Protein Albumin Lipase Vitamin B12 Folate Serum HCG, Qual Urine Color Urine Clarity Urine pH Ur Specific [place] Urine Protein Urine Ketones Urine Blood Urine Nitrite Urine Bilirubin Urine Urobilinogen Ur Leukocyte Esterase Urine Glucose Urine Opiates Screen Urine Methadone Screen Ur Barbiturates Screen Ur Tricyclics Screen Ur Amphetamines Screen U Benzodiazepines Scrn Urine Cocaine Screen Ur THC Screen Ethyl Alcohol COVID-19 Source SARS-CoV-2 (PCR) Influenza Type A (PCR) Influenza Type B (PCR) RSV (PCR) 08/10/21 08/10/21 08/11/21 18:30 18:30 06:15 WBC RBC Hgb Hct MCV MCH MCHC RDW Plt Count MPV Immature Gran % Neutrophils % Band Neutrophils % Lymphocytes % Atypical Lymphs % Monocytes % Eosinophils % Basophils % Metamyelocytes % Myelocytes % Promyelocytes % Other Cells % Nucleated RBC % Absolute Neutrophils Absolute Lymphocytes Absolute Monocytes Absolute Eosinophils Absolute Basophils RBC Morphology Polychromasia Hypochromasia Poikilocytosis Basophilic Stippling Anisocytosis Microcytosis Macrocytosis Spherocytes Tear Drop Cells Ovalocytes Stomatocytes [place] Bodies [place] Cells/Echinocytes Acanthocytes (Spur) Schistocytes PT INR D-Dimer ABG Sample Site ABG pH ABG pCO2 ABG pO2 ABG HCO3 ABG Total CO2 ABG O2 Saturation ABG Base Excess VBG pH VBG pCO2 VBG pO2 VBG HCO3 VBG Total CO2 VBG O2 Saturation VBG Base Excess VBG Lactate Oxygen Liter Flow FiO2 Sodium 136 Potassium 3.9 Chloride 102 Carbon Dioxide 21.2 Anion Gap 12.8 H BUN 2 L Creatinine 0.5 L D Estimated GFR/1.73 m2 >= 60.00 Glucose 74 D Calcium 7.2 L Phosphorus 3.0 Magnesium 1.8 Ferritin > 2000 H Total Bilirubin 2.3 H Conjugated Bilirubin 1.0 H AST 455 H ALT 106 H Alkaline Phosphatase 156 H Ammonia Creatine Kinase 211 H Troponin I C-Reactive Protein < 0.05 Total Protein 5.8 L Albumin 2.6 L Lipase Vitamin B12 1542 H Folate 10.0 Serum HCG, Qual Urine Color Yellow Urine Clarity Clear Urine pH 6.0 Ur Specific [place] 1.025 Urine Protein Negative Urine Ketones Negative Urine Blood Negative Urine Nitrite Negative Urine Bilirubin Negative Urine Urobilinogen 1.0 H Ur Leukocyte Esterase Negative Urine Glucose Negative Urine Opiates Screen Negative Urine Methadone Screen Negative Ur Barbiturates Screen Negative Ur Tricyclics Screen Negative Ur Amphetamines Screen Negative U Benzodiazepines Scrn Negative Urine Cocaine Screen Negative Ur THC Screen Negative Ethyl Alcohol COVID-19 Source SARS-CoV-2 (PCR) Influenza Type A (PCR) Influenza Type B (PCR) RSV (PCR) 08/11/21 08/11/21 08/11/21 06:15 06:15 09:15 WBC 2.42 L D RBC 2.95 L Hgb 9.8 L D Hct 29.8 L D MCV 101.0 H MCH 33.2 H MCHC 32.9 RDW 15.7 H Plt Count 60 L MPV 10.8 Immature Gran % 0.4 Neutrophils % 56.2 Band Neutrophils % Lymphocytes % 28.1 Atypical Lymphs % Monocytes % 12.4 Eosinophils % 0.8 Basophils % 2.1 Metamyelocytes % Myelocytes % Promyelocytes % Other Cells % Nucleated RBC % 0 Absolute Neutrophils 1.36 Absolute Lymphocytes 0.68 L Absolute Monocytes 0.30 Absolute Eosinophils 0.02 Absolute Basophils 0.05 RBC Morphology Polychromasia Hypochromasia Poikilocytosis Basophilic Stippling Anisocytosis Microcytosis Macrocytosis Spherocytes Tear Drop Cells Ovalocytes Stomatocytes [place] Bodies [place] Cells/Echinocytes Acanthocytes (Spur) Schistocytes PT 11.2 H INR 1.1 D-Dimer 3277 H ABG Sample Site ABG pH ABG pCO2 ABG pO2 ABG HCO3 ABG Total CO2 ABG O2 Saturation ABG Base Excess VBG pH VBG pCO2 VBG pO2 VBG HCO3 VBG Total CO2 VBG O2 Saturation VBG Base Excess VBG Lactate 13.3 H* Oxygen Liter Flow FiO2 Sodium Potassium Chloride Carbon Dioxide Anion Gap BUN Creatinine Estimated GFR/1.73 m2 Glucose Calcium Phosphorus Magnesium Ferritin Total Bilirubin Conjugated Bilirubin AST ALT Alkaline Phosphatase Ammonia Creatine Kinase Troponin I C-Reactive Protein Total Protein Albumin Lipase Vitamin B12 Folate Serum HCG, Qual Urine Color Urine Clarity Urine pH Ur Specific [place] Urine Protein Urine Ketones Urine Blood Urine Nitrite Urine Bilirubin Urine Urobilinogen Ur Leukocyte Esterase Urine Glucose Urine Opiates Screen Urine Methadone Screen Ur Barbiturates Screen Ur Tricyclics Screen Ur Amphetamines Screen U Benzodiazepines Scrn Urine Cocaine Screen Ur THC Screen Ethyl Alcohol COVID-19 Source SARS-CoV-2 (PCR) Influenza Type A (PCR) Influenza Type B (PCR) RSV (PCR) 08/11/21 08/11/21 08/11/21 09:15 09:18 09:36 WBC RBC Hgb 10.0 L Hct 32.2 L MCV MCH MCHC RDW Plt Count MPV Immature Gran % Neutrophils % Band Neutrophils % Lymphocytes % Atypical Lymphs % Monocytes % Eosinophils % Basophils % Metamyelocytes % Myelocytes % Promyelocytes % Other Cells % Nucleated RBC % Absolute Neutrophils Absolute Lymphocytes Absolute Monocytes Absolute Eosinophils Absolute Basophils RBC Morphology Polychromasia Hypochromasia Poikilocytosis Basophilic Stippling Anisocytosis Microcytosis Macrocytosis Spherocytes Tear Drop Cells Ovalocytes Stomatocytes [place] Bodies [place] Cells/Echinocytes Acanthocytes (Spur) Schistocytes PT INR D-Dimer ABG Sample Site Arterial Line ABG pH 7.10 L* ABG pCO2 43 ABG pO2 73 L ABG HCO3 13 L ABG Total CO2 13 L ABG O2 Saturation 87 L ABG Base Excess -15 L VBG pH VBG pCO2 VBG pO2 VBG HCO3 VBG Total CO2 VBG O2 Saturation VBG Base Excess VBG Lactate Oxygen Liter Flow 15 FiO2 100 Sodium Potassium Chloride Carbon Dioxide Anion Gap BUN Creatinine Estimated GFR/1.73 m2 Glucose Calcium Phosphorus Magnesium Ferritin Total Bilirubin Conjugated Bilirubin AST ALT Alkaline Phosphatase Ammonia Creatine Kinase Troponin I C-Reactive Protein Total Protein Albumin Lipase Vitamin B12 Folate Serum HCG, Qual Urine Color Urine Clarity Urine pH Ur Specific [place] Urine Protein Urine Ketones Urine Blood Urine Nitrite Urine Bilirubin Urine Urobilinogen Ur Leukocyte Esterase Urine Glucose Urine Opiates Screen Urine Methadone Screen Ur Barbiturates Screen Ur Tricyclics Screen Ur Amphetamines Screen U Benzodiazepines Scrn Urine Cocaine Screen Ur THC Screen Ethyl Alcohol COVID-19 Source Nasal/Nares SARS-CoV-2 (PCR) Influenza Type A (PCR) Influenza Type B (PCR) RSV (PCR) PAWSS Have you Been Recently Intoxicated or Drunk Within the Last 30 days?: Yes Have you Ever Experienced Previous Episodes of Alcohol Withdrawal?: Yes Have you ever Experienced Withdrawal Seizures?: No Have you ever Experienced Delirium Tremens(DT)s?: No Have you ever undergone Alcohol Rehabilitation Treatment (i.e, inpt ot outpatient treatment programs)?: No Have you ever Experienced Blackouts?: Yes Have you ever Combined Alcohol with other Downers within the last 90 days?: No Have you ever Combined Alcohol with any other Substance of Abuse during the last 90 days?: No Result: 3
[2021-08-11 09:48] LABS: sO2 > 99 % (95-98)
[2021-08-11 09:49] LABS: FIO2 100 %; Site Arterial Line
[2021-08-11 09:51] LABS: NT-proBNP 1579 pg/mL (<300)
[2021-08-11 09:58] LABS: Magnesium 7.2 mg/dL (1.8-2.4); Troponin I 118 ng/L (<or=60)
--- NOTE | 2021-08-11 09:58 | PDOC.CMIN ---
- If Service Date Differs Date of service: 08/11/21 Time of Service: 09:59 Care Management Initial Assess REASON FOR HOSPITALIZATION:: alcohol withdrawal; PUI PAST MEDICAL HISTORY/PAST SURGICAL HISTORY:: All Active Problems. Elevated troponin (Acute). Discharge planning issues (Acute). DVT prophylaxis (Acute). Alcohol abuse (Chronic). Transaminitis (Acute). Person under investigation for COVID-19 (Acute). Hypokalemia (Acute). Alcohol withdrawal (Acute). Colitis with rectal bleeding (Acute). Hypomagnesemia (Acute). Abdominal pain (Acute). Acute appendicitis (Acute). Medical History. Anxiety. Panic disorder. Surgical History. S/P appendectomy PREVIOUS FUNCTIONAL STATUS/SOCIAL/FAMILY SUPPORTS:: Naomi lives in [facility] with her S/O, [place], and their dogs. 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 She is independent at baseline. CURRENT FUNCTIONAL STATUS:: Per report, Naomi reported dizziness and shortly after fainted, lost her pulse and became blue. A code blue was called at approximately 08:40, compressions initiated. She was successfully intubated and has been accepted for transfer at [facility]. Later, another code blue was called, but she was stabilized again. CM attempted to reach her s/o, the only next of kin on her chart, and left a voicemail. CM will continue to follow. ADVANCE DIRECTIVES:: None on file. Has patient been provided with info about the portal/API?: No Did the patient sign up for the portal?: No CODE STATUS:: Full Code INSURANCE COVERAGE / FINANCIAL ISSUES:: VAL CURRENT HOME/COMMUNITY SERVICES/EQUIPMENT:: No known services or equipment. PRIMARY CARE PHYSICIAN:: None. Pt has been connected to Andreia Estelle previously (12/2020) for follow up. POTENTIAL DISCHARGE NEEDS:: Naomi is being transferred to [facility] for further medical management and discharge needs. PATIENT/FAMILY EDUCATION NEEDS:: Review discharge instructions, expectations for transfer and tertiary care. TRANSPORTATION:: Acute transfer- [facility] ground EMS. PLAN:: Naomi is being transferred to [facility] for tertiary care. [facility] ground EMS is transporting, coordinated by RN Lightout Examiner. Discharge plan to be determined once medically stable at tertiary center.
[2021-08-11] MEDS: Midazolam 2 MG/2 ML VIAL (10:00)
--- NOTE | 2021-08-11 10:30 | ROE_ITS ---
Date of service: 08/11/21 Time of Service: 08:30 Operative Note Operative Note CODE BLUE NOTE RN discovered patients telemetry to appear to be in V tach. Upon assessment patient initially was conscious but quickly became unresponsive. CODE WICHO was called. Upon my arrival CPR had been initiated. I asked for the back board to be in place, for her to be hooked up to the defibrillator and to prepare and give an amp of epinephrine. At the first pulse check she was found to be in V.fib. The defibrillator was charged and a shock administered. CPR was resumed and 300mg of amiodarone was given. She continued to have a rhythm that appeared to be V.fib, but did have appearances of V.tach as well as torsades. She had several shocks as well as bicarb, 6g total magnesium (concern for torsades), calcium, another 300mg amiodarone push during the code. She was intubated by anesthesia, had an IO and left femoral introducer placed by surgery. After the first 3 shocks she did not have any rhythm conversion. I discovered the pads were incorrectly placed. I corrected this error and we were able to shock her out of the rhythm eventually. After ROSC her pulse was becoming weaker and more thready so I pushed another 150mg of amiodarone as well as 0.3 mcg of epinephrine, which helped and facilitated placement on a central line. Anesthesia also placed an arterial line. She was coded for 20 minutes in total. She does open her eyes to verbal stimuli and does make eye contact. She did intermittently follow simple motor commands for me post ROSC. She has been accepted for transfer to [facility] for a more thorough cardiac evaluation.
--- NOTE | 2021-08-11 10:39 | CCONE_ITS ---
Date of service: 08/11/21 Time of Service: 10:39 Assessment and Plan Assessment and plan (1) Cardiac arrest: Status: Acute (2) Elevated troponin: Status: Acute (3) Alcohol withdrawal: Status: Acute Assessment and plan: The patient has been successfully resuscitated. The echocardiogram was reviewed in the ICU at the bedside, showing no interval change. Case was discussed with Dr. Camejo. Electrolytes have been addressed. Repeat EKG and cardiac enzymes are pending. At this point I would agree with continued supportive care. It was advised if possible to transfer the patient to a tertiary care facility where additional support would be available Please do not hesitate to contact me if additional specific cardiac questions arise History of Present Illness History of Present Illness Chief Complaint: Cardiac arrest Narrative: Cardiac evaluation was requested in this 35-year-old woman who suffered a cardiac arrest earlier this morning History is obtained from discussion with Dr. Strickland, Dr. Camejo, nursing staff, and the medical record Patient presented to the emergency room yesterday with alcohol withdrawal. She was admitted to the hospital and treated per protocol. Reportedly she was sitting up in the chair this morning when dysrhythmia was noted on the monitor consistent with ventricular tachycardia. Initially the patient was awake, then was not, code was called. She continued to have unstable rhythm with strips consistent with polymorphic ventricular tachycardia (torsades). She was treated with magnesium, epinephrine, amiodarone and was defibrillated multiple times. Subsequently she had return of sinus rhythm and was noted to be awake though not necessarily following commands or making eye contact. As best can be determined, she has no prior cardiac history Her presenting EKG was within normal limits notable only for sinus tachycardia. echocardiogram yesterday showed normal left ventricular function, normal chamber sizes, no valvular disease. It was repeated this morning postcode and at the bedside shows no interval change. Repeat EKG is pending . Consults Consult date: 08/11/21 Requesting physician: Heather Strickland Review of Systems Unobtainable due to endotracheal tube [facility] All Active Problems (Updated 08/11/21 @ 10:44 by Charu West MD) Cardiac arrest (Acute) Elevated troponin (Acute) Discharge planning issues (Acute) DVT prophylaxis (Acute) Alcohol abuse (Chronic) Transaminitis (Acute) Person under investigation for COVID-19 (Acute) Hypokalemia (Acute) Alcohol withdrawal (Acute) Colitis with rectal bleeding (Acute) Hypomagnesemia (Acute) Abdominal pain (Acute) Acute appendicitis (Acute) Medical History Anxiety Panic disorder Surgical History S/P appendectomy Family History Other Heart disease Social History Smoking/Tobacco Use Status: Never Smoking risk assessment performed?: Yes Alcohol Intake: never Counseling given: Yes Counseling provided: provider counseling Drug use: Never Substance use type: does not use Do you feel safe at home: Yes Do you feel safe in your relationship?: Yes Exam Narrative Exam Narrative: Patient was noted to be awake and on a ventilator. She was not specifically examined Results Last Vital Signs Temp 36.6 C 08/11/21 04:10 Pulse 97 H 08/11/21 02:01 Resp 16 08/11/21 10:05 BP 99/75 L 08/11/21 04:01 Pulse Ox 99 08/11/21 10:05 Labs Result diagrams: 08/11/21 09:15 08/11/21 09:15 Labs: Laboratory Results - last 24 hr 08/10/21 08/10/21 08/10/21 11:45 11:45 12:20 WBC 3.89 L RBC 3.73 L Hgb 12.5 Hct 37.6 MCV 100.8 H MCH 33.5 H MCHC 33.2 RDW 15.8 H Plt Count 87 L MPV 10.5 Immature Gran % 0.8 Neutrophils % 55.4 Band Neutrophils % Lymphocytes % 28.8 Atypical Lymphs % Monocytes % 12.1 Eosinophils % 0.3 Basophils % 2.6 Metamyelocytes % Myelocytes % Promyelocytes % Other Cells % Nucleated RBC % 0 Absolute Neutrophils 2.16 Absolute Lymphocytes 1.12 L Absolute Monocytes 0.47 Absolute Eosinophils 0.01 Absolute Basophils 0.10 RBC Morphology Normal Polychromasia Hypochromasia Poikilocytosis Basophilic Stippling Anisocytosis Microcytosis Macrocytosis Spherocytes Tear Drop Cells Ovalocytes Stomatocytes [place] Bodies [place] Cells/Echinocytes Acanthocytes (Spur) Schistocytes PT INR D-Dimer ABG Sample Site ABG pH ABG pCO2 ABG pO2 ABG HCO3 ABG Total CO2 ABG O2 Saturation ABG Base Excess VBG pH VBG pCO2 VBG pO2 VBG HCO3 VBG Total CO2 VBG O2 Saturation VBG Base Excess VBG Lactate Oxygen Liter Flow FiO2 Sodium 140 Potassium 3.3 L Chloride 100 Carbon Dioxide 24.5 Anion Gap 15.5 H BUN 3 L Creatinine 0.8 Estimated GFR/1.73 m2 >= 60.00 Glucose 137 H Calcium 8.0 L Phosphorus 5.1 H Magnesium 1.5 L Ferritin Total Bilirubin 1.4 H Conjugated Bilirubin AST 491 H ALT 131 H Alkaline Phosphatase 200 H Ammonia Creatine Kinase Troponin I 231 H* C-Reactive Protein NT-Pro-B Natriuret Pep Total Protein 7.3 Albumin 3.3 L Lipase Vitamin B12 Folate Serum HCG, Qual Urine Color Urine Clarity Urine pH Ur Specific [place] Urine Protein Urine Ketones Urine Blood Urine Nitrite Urine Bilirubin Urine Urobilinogen Ur Leukocyte Esterase Urine Glucose Urine Opiates Screen Urine Methadone Screen Ur Barbiturates Screen Ur Tricyclics Screen Ur Amphetamines Screen U Benzodiazepines Scrn Urine Cocaine Screen Ur THC Screen Ethyl Alcohol 447.8 H COVID-19 Source Nasal/Nares SARS-CoV-2 (PCR) Negative Influenza Type A (PCR) Negative Influenza Type B (PCR) Negative RSV (PCR) Negative 08/10/21 08/10/21 08/10/21 13:15 13:15 13:15 WBC RBC Hgb Hct MCV MCH MCHC RDW Plt Count MPV Immature Gran % Neutrophils % Band Neutrophils % Lymphocytes % Atypical Lymphs % Monocytes % Eosinophils % Basophils % Metamyelocytes % Myelocytes % Promyelocytes % Other Cells % Nucleated RBC % Absolute Neutrophils Absolute Lymphocytes Absolute Monocytes Absolute Eosinophils Absolute Basophils RBC Morphology Polychromasia Hypochromasia Poikilocytosis Basophilic Stippling Anisocytosis Microcytosis Macrocytosis Spherocytes Tear Drop Cells Ovalocytes Stomatocytes [place] Bodies [place] Cells/Echinocytes Acanthocytes (Spur) Schistocytes PT INR D-Dimer ABG Sample Site ABG pH ABG pCO2 ABG pO2 ABG HCO3 ABG Total CO2 ABG O2 Saturation ABG Base Excess VBG pH 7.42 H VBG pCO2 37 L VBG pO2 65 VBG HCO3 24 VBG Total CO2 22 L VBG O2 Saturation 90 VBG Base Excess -1 VBG Lactate Oxygen Liter Flow FiO2 Sodium Potassium Chloride Carbon Dioxide Anion Gap BUN Creatinine Estimated GFR/1.73 m2 Glucose Calcium Phosphorus Magnesium Ferritin Total Bilirubin Conjugated Bilirubin AST ALT Alkaline Phosphatase Ammonia Creatine Kinase Troponin I C-Reactive Protein NT-Pro-B Natriuret Pep Total Protein Albumin Lipase 211 Vitamin B12 Folate Serum HCG, Qual Negative Urine Color Urine Clarity Urine pH Ur Specific [place] Urine Protein Urine Ketones Urine Blood Urine Nitrite Urine Bilirubin Urine Urobilinogen Ur Leukocyte Esterase Urine Glucose Urine Opiates Screen Urine Methadone Screen Ur Barbiturates Screen Ur Tricyclics Screen Ur Amphetamines Screen U Benzodiazepines Scrn Urine Cocaine Screen Ur THC Screen Ethyl Alcohol COVID-19 Source SARS-CoV-2 (PCR) Influenza Type A (PCR) Influenza Type B (PCR) RSV (PCR) 08/10/21 08/10/21 08/10/21 13:15 14:49 14:50 WBC Cancelled RBC Cancelled Hgb Cancelled Hct Cancelled MCV Cancelled MCH Cancelled MCHC Cancelled RDW Cancelled Plt Count Cancelled MPV Cancelled Immature Gran % Cancelled Neutrophils % Cancelled Band Neutrophils % Cancelled Lymphocytes % Cancelled Atypical Lymphs % Cancelled Monocytes % Cancelled Eosinophils % Cancelled Basophils % Cancelled Metamyelocytes % Cancelled Myelocytes % Cancelled Promyelocytes % Cancelled Other Cells % Cancelled Nucleated RBC % Cancelled Absolute Neutrophils Cancelled Absolute Lymphocytes Cancelled Absolute Monocytes Cancelled Absolute Eosinophils Cancelled Absolute Basophils Cancelled RBC Morphology Cancelled Polychromasia Cancelled Hypochromasia Cancelled Poikilocytosis Cancelled Basophilic Stippling Cancelled Anisocytosis Cancelled Microcytosis Cancelled Macrocytosis Cancelled Spherocytes Cancelled Tear Drop Cells Cancelled Ovalocytes Cancelled Stomatocytes Cancelled [place] Bodies Cancelled [place] Cells/Echinocytes Cancelled Acanthocytes ([place]) Cancelled Schistocytes Cancelled PT INR D-Dimer ABG Sample Site ABG pH ABG pCO2 ABG pO2 ABG HCO3 ABG Total CO2 ABG O2 Saturation ABG Base Excess VBG pH VBG pCO2 VBG pO2 VBG HCO3 VBG Total CO2 VBG O2 Saturation VBG Base Excess VBG Lactate Oxygen Liter Flow FiO2 Sodium Potassium Chloride Carbon Dioxide Anion Gap BUN Creatinine Estimated GFR/1.73 m2 Glucose Calcium Phosphorus Magnesium Ferritin Total Bilirubin Conjugated Bilirubin AST ALT Alkaline Phosphatase Ammonia < 10 L Creatine Kinase 357 H Troponin I C-Reactive Protein NT-Pro-B Natriuret Pep Total Protein Albumin Lipase Vitamin B12 Folate Serum HCG, Qual Urine Color Urine Clarity Urine pH Ur Specific [place] Urine Protein Urine Ketones Urine Blood Urine Nitrite Urine Bilirubin Urine Urobilinogen Ur Leukocyte Esterase Urine Glucose Urine Opiates Screen Urine Methadone Screen Ur Barbiturates Screen Ur Tricyclics Screen Ur Amphetamines Screen U Benzodiazepines Scrn Urine Cocaine Screen Ur THC Screen Ethyl Alcohol COVID-19 Source SARS-CoV-2 (PCR) Influenza Type A (PCR) Influenza Type B (PCR) RSV (PCR) 08/10/21 08/10/21 08/10/21 14:50 17:00 17:00 WBC RBC Hgb Hct MCV MCH MCHC RDW Plt Count MPV Immature Gran % Neutrophils % Band Neutrophils % Lymphocytes % Atypical Lymphs % Monocytes % Eosinophils % Basophils % Metamyelocytes % Myelocytes % Promyelocytes % Other Cells % Nucleated RBC % Absolute Neutrophils Absolute Lymphocytes Absolute Monocytes Absolute Eosinophils Absolute Basophils RBC Morphology Polychromasia Hypochromasia Poikilocytosis Basophilic Stippling Anisocytosis Microcytosis Macrocytosis Spherocytes Tear Drop Cells Ovalocytes Stomatocytes [place] Bodies [place] Cells/Echinocytes Acanthocytes (Sp[place]) Schistocytes PT 11.9 H INR 1.2 H D-Dimer 2802 H ABG Sample Site ABG pH ABG pCO2 ABG pO2 ABG HCO3 ABG Total CO2 ABG O2 Saturation ABG Base Excess VBG pH VBG pCO2 VBG pO2 VBG HCO3 VBG Total CO2 VBG O2 Saturation VBG Base Excess VBG Lactate Oxygen Liter Flow FiO2 Sodium Potassium Chloride Carbon Dioxide Anion Gap BUN Creatinine Estimated GFR/1.73 m2 Glucose Calcium Phosphorus Magnesium Ferritin 1625 H Total Bilirubin Conjugated Bilirubin AST ALT Alkaline Phosphatase Ammonia Creatine Kinase Troponin I 203 H* C-Reactive Protein < 0.05 NT-Pro-B Natriuret Pep Total Protein Albumin Lipase Vitamin B12 Folate Serum HCG, Qual Urine Color Urine Clarity Urine pH Ur Specific [place] Urine Protein Urine Ketones Urine Blood Urine Nitrite Urine Bilirubin Urine Urobilinogen Ur Leukocyte Esterase Urine Glucose Urine Opiates Screen Urine Methadone Screen Ur Barbiturates Screen Ur Tricyclics Screen Ur Amphetamines Screen U Benzodiazepines Scrn Urine Cocaine Screen Ur THC Screen Ethyl Alcohol COVID-19 Source SARS-CoV-2 (PCR) Influenza Type A (PCR) Influenza Type B (PCR) RSV (PCR) 08/10/21 08/10/21 08/11/21 18:30 18:30 06:15 WBC RBC Hgb Hct MCV MCH MCHC RDW Plt Count MPV Immature Gran % Neutrophils % Band Neutrophils % Lymphocytes % Atypical Lymphs % Monocytes % Eosinophils % Basophils % Metamyelocytes % Myelocytes % Promyelocytes % Other Cells % Nucleated RBC % Absolute Neutrophils Absolute Lymphocytes Absolute Monocytes Absolute Eosinophils Absolute Basophils RBC Morphology Polychromasia Hypochromasia Poikilocytosis Basophilic Stippling Anisocytosis Microcytosis Macrocytosis Spherocytes Tear Drop Cells Ovalocytes Stomatocytes [place] Bodies [place] Cells/Echinocytes Acanthocytes ([place]) Schistocytes PT INR D-Dimer ABG Sample Site ABG pH ABG pCO2 ABG pO2 ABG HCO3 ABG Total CO2 ABG O2 Saturation ABG Base Excess VBG pH VBG pCO2 VBG pO2 VBG HCO3 VBG Total CO2 VBG O2 Saturation VBG Base Excess VBG Lactate Oxygen Liter Flow FiO2 Sodium 136 Potassium 3.9 Chloride 102 Carbon Dioxide 21.2 Anion Gap 12.8 H BUN 2 L Creatinine 0.5 L D Estimated GFR/1.73 m2 >= 60.00 Glucose 74 D Calcium 7.2 L Phosphorus 3.0 Magnesium 1.8 Ferritin > 2000 H Total Bilirubin 2.3 H Conjugated Bilirubin 1.0 H AST 455 H ALT 106 H Alkaline Phosphatase 156 H Ammonia Creatine Kinase 211 H Troponin I C-Reactive Protein < 0.05 NT-Pro-B Natriuret Pep Total Protein 5.8 L Albumin 2.6 L Lipase Vitamin B12 1542 H Folate 10.0 Serum HCG, Qual Urine Color Yellow Urine Clarity Clear Urine pH 6.0 Ur Specific [place] 1.025 Urine Protein Negative Urine Ketones Negative Urine Blood Negative Urine Nitrite Negative Urine Bilirubin Negative Urine Urobilinogen 1.0 H Ur Leukocyte Esterase Negative Urine Glucose Negative Urine Opiates Screen Negative Urine Methadone Screen Negative Ur Barbiturates Screen Negative Ur Tricyclics Screen Negative Ur Amphetamines Screen Negative U Benzodiazepines Scrn Negative Urine Cocaine Screen Negative Ur THC Screen Negative Ethyl Alcohol COVID-19 Source SARS-CoV-2 (PCR) Influenza Type A (PCR) Influenza Type B (PCR) RSV (PCR) 08/11/21 08/11/21 08/11/21 06:15 06:15 09:15 WBC 2.42 L D RBC 2.95 L Hgb 9.8 L D Hct 29.8 L D MCV 101.0 H MCH 33.2 H MCHC 32.9 RDW 15.7 H Plt Count 60 L MPV 10.8 Immature Gran % 0.4 Neutrophils % 56.2 Band Neutrophils % Lymphocytes % 28.1 Atypical Lymphs % Monocytes % 12.4 Eosinophils % 0.8 Basophils % 2.1 Metamyelocytes % Myelocytes % Promyelocytes % Other Cells % Nucleated RBC % 0 Absolute Neutrophils 1.36 Absolute Lymphocytes 0.68 L Absolute Monocytes 0.30 Absolute Eosinophils 0.02 Absolute Basophils 0.05 RBC Morphology Polychromasia Hypochromasia Poikilocytosis Basophilic Stippling Anisocytosis Microcytosis Macrocytosis Spherocytes Tear Drop Cells Ovalocytes Stomatocytes [place] Bodies [place] Cells/Echinocytes Acanthocytes ([place]) Schistocytes PT 11.2 H INR 1.1 D-Dimer 3277 H ABG Sample Site ABG pH ABG pCO2 ABG pO2 ABG HCO3 ABG Total CO2 ABG O2 Saturation ABG Base Excess VBG pH VBG pCO2 VBG pO2 VBG HCO3 VBG Total CO2 VBG O2 Saturation VBG Base Excess VBG Lactate Oxygen Liter Flow FiO2 Sodium 138 Potassium 3.7 Chloride 103 Carbon Dioxide 14.8 L Anion Gap 20.2 H BUN 3 L Creatinine 0.9 Estimated GFR/1.73 m2 >= 60.00 Glucose 188 H D Calcium 9.0 Phosphorus Magnesium Ferritin Total Bilirubin Conjugated Bilirubin AST ALT Alkaline Phosphatase Ammonia Creatine Kinase Troponin I 118 H* C-Reactive Protein NT-Pro-B Natriuret Pep Total Protein Albumin Lipase Vitamin B12 Folate Serum HCG, Qual Urine Color Urine Clarity Urine pH Ur Specific [place] Urine Protein Urine Ketones Urine Blood Urine Nitrite Urine Bilirubin Urine Urobilinogen Ur Leukocyte Esterase Urine Glucose Urine Opiates Screen Urine Methadone Screen Ur Barbiturates Screen Ur Tricyclics Screen Ur Amphetamines Screen U Benzodiazepines Scrn Urine Cocaine Screen Ur THC Screen Ethyl Alcohol COVID-19 Source SARS-CoV-2 (PCR) Influenza Type A (PCR) Influenza Type B (PCR) RSV (PCR) 08/11/21 08/11/21 08/11/21 09:15 09:15 09:15 WBC RBC Hgb 10.0 L Hct 32.2 L MCV MCH MCHC RDW Plt Count MPV Immature Gran % Neutrophils % Band Neutrophils % Lymphocytes % Atypical Lymphs % Monocytes % Eosinophils % Basophils % Metamyelocytes % Myelocytes % Promyelocytes % Other Cells % Nucleated RBC % Absolute Neutrophils Absolute Lymphocytes Absolute Monocytes Absolute Eosinophils Absolute Basophils RBC Morphology Polychromasia Hypochromasia Poikilocytosis Basophilic Stippling Anisocytosis Microcytosis Macrocytosis Spherocytes Tear Drop Cells Ovalocytes Stomatocytes [place] Bodies [place] Cells/Echinocytes Acanthocytes ([place]) Schistocytes PT INR D-Dimer ABG Sample Site ABG pH ABG pCO2 ABG pO2 ABG HCO3 ABG Total CO2 ABG O2 Saturation ABG Base Excess VBG pH VBG pCO2 VBG pO2 VBG HCO3 VBG Total CO2 VBG O2 Saturation VBG Base Excess VBG Lactate 13.3 H* Oxygen Liter Flow FiO2 Sodium Potassium Chloride Carbon Dioxide Anion Gap BUN Creatinine Estimated GFR/1.73 m2 Glucose Calcium Phosphorus Magnesium 7.2 H* Ferritin Total Bilirubin Conjugated Bilirubin AST ALT Alkaline Phosphatase Ammonia Creatine Kinase Troponin I C-Reactive Protein NT-Pro-B Natriuret Pep 1579 H Total Protein Albumin Lipase Vitamin B12 Folate Serum HCG, Qual Urine Color Urine Clarity Urine pH Ur Specific [place] Urine Protein Urine Ketones Urine Blood Urine Nitrite Urine Bilirubin Urine Urobilinogen Ur Leukocyte Esterase Urine Glucose Urine Opiates Screen Urine Methadone Screen Ur Barbiturates Screen Ur Tricyclics Screen Ur Amphetamines Screen U Benzodiazepines Scrn Urine Cocaine Screen Ur THC Screen Ethyl Alcohol COVID-19 Source SARS-CoV-2 (PCR) Influenza Type A (PCR) Influenza Type B (PCR) RSV (PCR) 08/11/21 08/11/21 08/11/21 09:15 09:18 09:35 WBC RBC Hgb Hct MCV MCH MCHC RDW Plt Count MPV Immature Gran % Neutrophils % Band Neutrophils % Lymphocytes % Atypical Lymphs % Monocytes % Eosinophils % Basophils % Metamyelocytes % Myelocytes % Promyelocytes % Other Cells % Nucleated RBC % Absolute Neutrophils Absolute Lymphocytes Absolute Monocytes Absolute Eosinophils Absolute Basophils RBC Morphology Polychromasia Hypochromasia Poikilocytosis Basophilic Stippling Anisocytosis Microcytosis Macrocytosis Spherocytes Tear Drop Cells Ovalocytes Stomatocytes [place] Bodies [place] Cells/Echinocytes Acanthocytes ([place]) Schistocytes PT INR D-Dimer Cancelled ABG Sample Site Arterial Line Arterial Line ABG pH 7.10 L* 7.25 L ABG pCO2 43 30 L ABG pO2 73 L 248 H ABG HCO3 13 L 13 L ABG Total CO2 13 L ABG O2 Saturation 87 L > 99 H ABG Base Excess -15 L -14 L VBG pH VBG pCO2 VBG pO2 VBG HCO3 VBG Total CO2 VBG O2 Saturation VBG Base Excess VBG Lactate Oxygen Liter Flow 15 FiO2 100 100 Sodium Potassium Chloride Carbon Dioxide Anion Gap BUN Creatinine Estimated GFR/1.73 m2 Glucose Calcium Phosphorus Magnesium Ferritin Total Bilirubin Conjugated Bilirubin AST ALT Alkaline Phosphatase Ammonia Creatine Kinase Troponin I C-Reactive Protein NT-Pro-B Natriuret Pep Total Protein Albumin Lipase Vitamin B12 Folate Serum HCG, Qual Urine Color Urine Clarity Urine pH Ur Specific [place] Urine Protein Urine Ketones Urine Blood Urine Nitrite Urine Bilirubin Urine Urobilinogen Ur Leukocyte Esterase Urine Glucose Urine Opiates Screen Urine Methadone Screen Ur Barbiturates Screen Ur Tricyclics Screen Ur Amphetamines Screen U Benzodiazepines Scrn Urine Cocaine Screen Ur THC Screen Ethyl Alcohol COVID-19 Source SARS-CoV-2 (PCR) Influenza Type A (PCR) Influenza Type B (PCR) RSV (PCR) 08/11/21 09:36 WBC RBC Hgb Hct MCV MCH MCHC RDW Plt Count MPV Immature Gran % Neutrophils % Band Neutrophils % Lymphocytes % Atypical Lymphs % Monocytes % Eosinophils % Basophils % Metamyelocytes % Myelocytes % Promyelocytes % Other Cells % Nucleated RBC % Absolute Neutrophils Absolute Lymphocytes Absolute Monocytes Absolute Eosinophils Absolute Basophils RBC Morphology Polychromasia Hypochromasia Poikilocytosis Basophilic Stippling Anisocytosis Microcytosis Macrocytosis Spherocytes Tear Drop Cells Ovalocytes Stomatocytes [place] Bodies [place] Cells/Echinocytes Acanthocytes ([place]) Schistocytes PT INR D-Dimer ABG Sample Site ABG pH ABG pCO2 ABG pO2 ABG HCO3 ABG Total CO2 ABG O2 Saturation ABG Base Excess VBG pH VBG pCO2 VBG pO2 VBG HCO3 VBG Total CO2 VBG O2 Saturation VBG Base Excess VBG Lactate Oxygen Liter Flow FiO2 Sodium Potassium Chloride Carbon Dioxide Anion Gap BUN Creatinine Estimated GFR/1.73 m2 Glucose Calcium Phosphorus Magnesium Ferritin Total Bilirubin Conjugated Bilirubin AST ALT Alkaline Phosphatase Ammonia Creatine Kinase Troponin I C-Reactive Protein NT-Pro-B Natriuret Pep Total Protein Albumin Lipase Vitamin B12 Folate Serum HCG, Qual Urine Color Urine Clarity Urine pH Ur Specific [place] Urine Protein Urine Ketones Urine Blood Urine Nitrite Urine Bilirubin Urine Urobilinogen Ur Leukocyte Esterase Urine Glucose Urine Opiates Screen Urine Methadone Screen Ur Barbiturates Screen Ur Tricyclics Screen Ur Amphetamines Screen U Benzodiazepines Scrn Urine Cocaine Screen Ur THC Screen Ethyl Alcohol COVID-19 Source Nasal/Nares SARS-CoV-2 (PCR) Influenza Type A (PCR) Influenza Type B (PCR) RSV (PCR)
[2021-08-11] MEDS: fentaNYL 100 MCG/2 ML VIAL IVP ×2 (10:40→12:27)
--- NOTE | 2021-08-11 10:45 | W.ANESAIR ---
Airway Management Note Procedure Date and Time DO NOT use this note for patients in the OR, Use Intraop Record Instead Date Performed: 08/11/21 Procedure Time: 10:00 Procedure Location Procedure Location: Intensive Care Unit Requesting Provider: Dayna Camejo Number of Previous Intubation attempts by other providers: 0 Procedure Type Procedure Type: Emergency Pre-Induction Setup Preinduction Setup: Standard monitors applied, BVM at bedside and Suction ready Induction Induction Time: 10:00 Induction setup: Bag Valve Mask Ventilation Induction Medications (Indicate Dose Given): No Medications Given Mask Ventilation: Difficult and 2 provider Technique Induction Comment: in arrest. Airway Device Airway Type: Intubation Laryngoscopy: Atraumatic Laryngoscopy Airway Grade: 1 Airway Blades: Glidescope 3 Endotracheal Tube: 7.5mm ETT Depth Where Secured (cm): 21 Placement Confirmation: Cuff inflated with minimally occlusive pressure, Secured with commercial device, Bilateral breath sounds, ETCO2 waveform present and Depth to teeth Number of Attempts (See previous attempts in note section): 1 Intubation Comment: Called to ICU via overhead Code Blue, CPR in progress, igel 4 placed without difficulty. Once intubation equipment was readied, igel was removed, glide 3 blade introduced, but removed on patients brief arousal. Once patient was again completely unresponsive she was intubated during pulse check without difficulty. OGT placed but not secured prior to CXR. All times are estimates, please refer to code sheet for more accurate times. Post Induction Management Post Induction Medications (Indicate Dose Given): Managed by Requesting Provider Gastric Tube Gastric Tube: Placed by Anesthesia Gastric Tube Placement: Oral Tube Size (Fr): 18 Depth Secured (cm): 0 Procedure Complications Procedure Complications: None Procedure Outcome Procedure Outcome: Successful Proceduralist Performed By: Amparo Kurtz
--- NOTE | 2021-08-11 10:54 | PUCC_ITS ---
General Date of Service Date of service: 08/11/21 Time of Service: 08:30 Reason for Admission to ICU: Alcohol withdrawl Code Blue VT Storm Assessment and Plan Assessment and plan (1) Left upper lobe pneumonia: Status: Acute (2) V-tach: Status: Chronic (3) Lactic acidosis: Status: Acute (4) Cardiac arrest: Status: Acute (5) Elevated troponin: Status: Acute (6) Alcohol abuse: Status: Chronic (7) Alcohol withdrawal: Status: Acute (8) Transaminitis: Status: Acute (9) Alcoholic hepatitis: Status: Acute (10) Respiratory failure requiring intubation: Status: Acute Assessment and plan: This is a 35 yo female with alcohol use disorder who was initially admitted for EtOH withdrawal who had a V.fib/V.tach arrest with R OSC after 20 minutes and a good post code neuro exam. She is in VT Storm which has required significant amounts of amiodarone, including infusion at 1 as well as the addition of lidocaine infusion and push. She is slated for transfer to [facility] at 2pm. She is intubated and should remain intubated until her VT Storm is under control. Her mag is supratherapeutic at this point and should be monitored for improvement. Her K is ok. Her levophed requirements are improving and hopefully she will be able to come off the levophed. Her TSH is fine (8). Her admission EKG has no signs of a high risk familial condition such as Brugada or AVRD. I am unsure the etiology of the VT Storm but it seems to be exacerbated by stimulation making me concerned for a sympathetic overstimulation issue. It is possible the EtOH withdrawal was causing discomfort to send her into the first episode (however RN reports her as comfortable prior to this). The second episode did chronologically occur after removal of the IO placed during the code. In either case she needs transfer to a tertiary center for further cardiac evaluation and consideration of ICD implantation or possible ablation if she continues to have issues. Patients next of kin was informed of code and ROSC. I asked they also be informed of her plans for transfer to [facility]. Recommendations Pulmonary: Respiratory Failure - continue volume assist control ventilation - 6-8cc/kg - currently on 400c, which is appropriate - PEEP 5 - wean FiO2 as able to maintain sat >92% Cardiac: VT Storm - continue amiodarone infusion at 1 - continue lidocaine infusion - if continued monomorphic VT would add esmolol infusion - if she is clearly having polymorphic VT (Torsades) then the heart rate slowing medications will be detrimental and should consider backing down - keep heart rate 100-115 - recommend transfer to tertiary center for further care and consideration of ICD and potentially ablation if VT continues Elevated troponins - present on admission, unsure now if this is demand (as previosuly suspected) or related to her VT - trend and continue serial EKG's Renal: Has Menjivar Strict I/O's Iatrogenic hypermagnesemia - continue to closely monitor - holding on magnesium infusion protocol given high levels and thoughts that this is monomorphic VT Lactic acidosis - s/p bicarb slow push - improving I&O: Intake & Output 08/08/21 08/09/21 08/10/21 08/11/21 23:59 23:59 23:59 23:59 Intake Total 3973.2 / 3973.2 1600 / 1600 Output Total 500 / 500 1200 / 1200 Balance 3473.2 / 3473.2 400 / 400 Weight 71.4 kg 80.5 kg Daily Fluid Goal:: even GI Nutrition: Hold nutrition for now - NPO Date of Last Bowel Movement: 08/08/21 Infectious Disease: SKY infiltrate and dirty line - Zosyn given 2 negative COVID tests - does not need precautions Hematologic: Thrombocytopenia - thought to be liver injury related - can consider peripheral smear/DIC work up - ok to give DVT prophylaxis (heparin) Neurologic: Analgesia/Sedation - on propofol, Precedex and ketamine infusions - fentanyl prn - Ativan prn - goal RASS -3 to decrease stimulation given VT EtOH withdrawal - was started on benzo pathway given concern for ALI - on Librium and prn Ativan - would be cautious in considering future phenobarb given large amounts of benzos given with non ideal liver function Endocrine: TSH ok Glucose goal 140-180 Lines: Left femoral vein introducer - dirty, should be replaced when stable Left radial art line Right EJ PIV IO left tibial plateau - removed Prophylaxis: Protonix DVT pps held for thrombocytopenia, but I recommend starting this with monitoring of platelets Code Status: Resuscitation Status Full Code Subjective Critical and life-threatening events over the past 24 hours: This is a 35 yo female who was admitted overnight for alcohol withdrawal started on CIWA/benzo protocol out of concer of acute liver injury. She was stable overnight, however this morning prior to my assessment of her she had a code blue. I ran her code for 20 minutes prior to ROSC (see separate code blue note). She had a intact neuro exam after ROSC. She was on propofol, amiodarone, Levophed and ketamine. I had initial concern for torsades based on her rhythm appearance during the code so she was given a large Mg load and planned to be started on Mg infusion. In the setting of having her IO removed she went into clear monomorphic V tach. Given this updated information she was given a lidocaine push and I started her on a lidocaine infusion in addition to the amiodarone. She was remaining tachycardiac (partly due to her levophed requirement) and so a bolus of 2.5 metoprolo was given which did work nicely. We are actively working on weaning the levophed. Given that this was determined not to be torsades I added Precedex to her analgesia/sedation regimen. She also has prn fentanyl and prn Ativan for this purpose. He acidosis and ABG are improving her her code. Her post intubations CXR finds the ETT slightly far back and so it will be advanced slightly and she also has a possible SKY infiltrate. The femoral central line was placed under emergency conditions and thus is dirty and should be changed when she is more stable. Due to the infiltrate and dirty line placement she is getting Zosyn. Exam Const General: no acute distress Nutritional Appearance: well nourished [facility] Head: normocephalic Ears: external ears normal and no periauricular adenopathy General nose exam: nasal mucous membranes and turbinates normal Face and sinus: sinuses nontender Mouth: oropharynx normal and moist mucous membranes Teeth and gingiva: dentition normal Eyes General: appearance normal, both eyes and all related structures Pupils: PERRL Neck Neck: normal visual inspection and no lymphadenopathy Chest Chest: normal inspection of the chest Resp Effort & Inspection: normal respiratory effort Auscultation: no rales, rhonchi and no wheezes Cardio Rate: regular rate Rhythm: regular rhythm Heart Sounds: S1 normal, S2 normal and no murmurs Pulses: radial pulses present bilaterally GI Inspection: normal to inspection Palpation: soft Skin General skin exam: no rashes or lesions noted Neuro General: no focal motor deficits and other (intubated, responsive exam post ROSC, move extremities to command) Extrem General: no clubbing, cyanosis or edema Psych Mental Status: other (Intubated) Mood: other (Intubated) Most Recent VS/Results Last Vital Signs Temp 36.6 C 08/11/21 04:10 Pulse 97 H 08/11/21 02:01 Resp 16 08/11/21 10:05 BP 99/75 L 08/11/21 04:01 Pulse Ox 99 08/11/21 10:05 Laboratory Results - last 24 hr 08/10/21 08/10/21 08/10/21 11:45 11:45 12:20 WBC 3.89 L RBC 3.73 L Hgb 12.5 Hct 37.6 MCV 100.8 H MCH 33.5 H MCHC 33.2 RDW 15.8 H Plt Count 87 L MPV 10.5 Immature Gran % 0.8 Neutrophils % 55.4 Band Neutrophils % Lymphocytes % 28.8 Atypical Lymphs % Monocytes % 12.1 Eosinophils % 0.3 Basophils % 2.6 Metamyelocytes % Myelocytes % Promyelocytes % Other Cells % Nucleated RBC % 0 Absolute Neutrophils 2.16 Absolute Lymphocytes 1.12 L Absolute Monocytes 0.47 Absolute Eosinophils 0.01 Absolute Basophils 0.10 RBC Morphology Normal Polychromasia Hypochromasia Poikilocytosis Basophilic Stippling Anisocytosis Microcytosis Macrocytosis Spherocytes Tear Drop Cells Ovalocytes Stomatocytes [place] Bodies [place] Cells/Echinocytes Acanthocytes (Spur) Schistocytes PT INR D-Dimer ABG Sample Site ABG pH ABG pCO2 ABG pO2 ABG HCO3 ABG Total CO2 ABG O2 Saturation ABG Base Excess VBG pH VBG pCO2 VBG pO2 VBG HCO3 VBG Total CO2 VBG O2 Saturation VBG Base Excess VBG Lactate Oxygen Liter Flow FiO2 Sodium 140 Potassium 3.3 L Chloride 100 Carbon Dioxide 24.5 Anion Gap 15.5 H BUN 3 L Creatinine 0.8 Estimated GFR/1.73 m2 >= 60.00 Glucose 137 H Calcium 8.0 L Phosphorus 5.1 H Magnesium 1.5 L Ferritin Total Bilirubin 1.4 H Conjugated Bilirubin AST 491 H ALT 131 H Alkaline Phosphatase 200 H Ammonia Creatine Kinase Troponin I 231 H* C-Reactive Protein NT-Pro-B Natriuret Pep Total Protein 7.3 Albumin 3.3 L Lipase Vitamin B12 Folate Serum HCG, Qual Urine Color Urine Clarity Urine pH Ur Specific [place] Urine Protein Urine Ketones Urine Blood Urine Nitrite Urine Bilirubin Urine Urobilinogen Ur Leukocyte Esterase Urine Glucose Urine Opiates Screen Urine Methadone Screen Ur Barbiturates Screen Ur Tricyclics Screen Ur Amphetamines Screen U Benzodiazepines Scrn Urine Cocaine Screen Ur THC Screen Ethyl Alcohol 447.8 H COVID-19 Source Nasal/Nares SARS-CoV-2 (PCR) Negative Influenza Type A (PCR) Negative Influenza Type B (PCR) Negative RSV (PCR) Negative 08/10/21 08/10/21 08/10/21 13:15 13:15 13:15 WBC RBC Hgb Hct MCV MCH MCHC RDW Plt Count MPV Immature Gran % Neutrophils % Band Neutrophils % Lymphocytes % Atypical Lymphs % Monocytes % Eosinophils % Basophils % Metamyelocytes % Myelocytes % Promyelocytes % Other Cells % Nucleated RBC % Absolute Neutrophils Absolute Lymphocytes Absolute Monocytes Absolute Eosinophils Absolute Basophils RBC Morphology Polychromasia Hypochromasia Poikilocytosis Basophilic Stippling Anisocytosis Microcytosis Macrocytosis Spherocytes Tear Drop Cells Ovalocytes Stomatocytes [place] Bodies [place] Cells/Echinocytes Acanthocytes (Spur) Schistocytes PT INR D-Dimer ABG Sample Site ABG pH ABG pCO2 ABG pO2 ABG HCO3 ABG Total CO2 ABG O2 Saturation ABG Base Excess VBG pH 7.42 H VBG pCO2 37 L VBG pO2 65 VBG HCO3 24 VBG Total CO2 22 L VBG O2 Saturation 90 VBG Base Excess -1 VBG Lactate Oxygen Liter Flow FiO2 Sodium Potassium Chloride Carbon Dioxide Anion Gap BUN Creatinine Estimated GFR/1.73 m2 Glucose Calcium Phosphorus Magnesium Ferritin Total Bilirubin Conjugated Bilirubin AST ALT Alkaline Phosphatase Ammonia Creatine Kinase Troponin I C-Reactive Protein NT-Pro-B Natriuret Pep Total Protein Albumin Lipase 211 Vitamin B12 Folate Serum HCG, Qual Negative Urine Color Urine Clarity Urine pH Ur Specific [place] Urine Protein Urine Ketones Urine Blood Urine Nitrite Urine Bilirubin Urine Urobilinogen Ur Leukocyte Esterase Urine Glucose Urine Opiates Screen Urine Methadone Screen Ur Barbiturates Screen Ur Tricyclics Screen Ur Amphetamines Screen U Benzodiazepines Scrn Urine Cocaine Screen Ur THC Screen Ethyl Alcohol COVID-19 Source SARS-CoV-2 (PCR) Influenza Type A (PCR) Influenza Type B (PCR) RSV (PCR) 08/10/21 08/10/21 08/10/21 13:15 14:49 14:50 WBC Cancelled RBC Cancelled Hgb Cancelled Hct Cancelled MCV Cancelled MCH Cancelled MCHC Cancelled RDW Cancelled Plt Count Cancelled MPV Cancelled Immature Gran % Cancelled Neutrophils % Cancelled Band Neutrophils % Cancelled Lymphocytes % Cancelled Atypical Lymphs % Cancelled Monocytes % Cancelled Eosinophils % Cancelled Basophils % Cancelled Metamyelocytes % Cancelled Myelocytes % Cancelled Promyelocytes % Cancelled Other Cells % Cancelled Nucleated RBC % Cancelled Absolute Neutrophils Cancelled Absolute Lymphocytes Cancelled Absolute Monocytes Cancelled Absolute Eosinophils Cancelled Absolute Basophils Cancelled RBC Morphology Cancelled Polychromasia Cancelled Hypochromasia Cancelled Poikilocytosis Cancelled Basophilic Stippling Cancelled Anisocytosis Cancelled Microcytosis Cancelled Macrocytosis Cancelled Spherocytes Cancelled Tear Drop Cells Cancelled Ovalocytes Cancelled Stomatocytes Cancelled [place] Bodies Cancelled [place] Cells/Echinocytes Cancelled Acanthocytes (Spur) Cancelled Schistocytes Cancelled PT INR D-Dimer ABG Sample Site ABG pH ABG pCO2 ABG pO2 ABG HCO3 ABG Total CO2 ABG O2 Saturation ABG Base Excess VBG pH VBG pCO2 VBG pO2 VBG HCO3 VBG Total CO2 VBG O2 Saturation VBG Base Excess VBG Lactate Oxygen Liter Flow FiO2 Sodium Potassium Chloride Carbon Dioxide Anion Gap BUN Creatinine Estimated GFR/1.73 m2 Glucose Calcium Phosphorus Magnesium Ferritin Total Bilirubin Conjugated Bilirubin AST ALT Alkaline Phosphatase Ammonia < 10 L Creatine Kinase 357 H Troponin I C-Reactive Protein NT-Pro-B Natriuret Pep Total Protein Albumin Lipase Vitamin B12 Folate Serum HCG, Qual Urine Color Urine Clarity Urine pH Ur Specific [place] Urine Protein Urine Ketones Urine Blood Urine Nitrite Urine Bilirubin Urine Urobilinogen Ur Leukocyte Esterase Urine Glucose Urine Opiates Screen Urine Methadone Screen Ur Barbiturates Screen Ur Tricyclics Screen Ur Amphetamines Screen U Benzodiazepines Scrn Urine Cocaine Screen Ur THC Screen Ethyl Alcohol COVID-19 Source SARS-CoV-2 (PCR) Influenza Type A (PCR) Influenza Type B (PCR) RSV (PCR) 08/10/21 08/10/21 08/10/21 14:50 17:00 17:00 WBC RBC Hgb Hct MCV MCH MCHC RDW Plt Count MPV Immature Gran % Neutrophils % Band Neutrophils % Lymphocytes % Atypical Lymphs % Monocytes % Eosinophils % Basophils % Metamyelocytes % Myelocytes % Promyelocytes % Other Cells % Nucleated RBC % Absolute Neutrophils Absolute Lymphocytes Absolute Monocytes Absolute Eosinophils Absolute Basophils RBC Morphology Polychromasia Hypochromasia Poikilocytosis Basophilic Stippling Anisocytosis Microcytosis Macrocytosis Spherocytes Tear Drop Cells Ovalocytes Stomatocytes [place] Bodies [place] Cells/Echinocytes Acanthocytes (Spur) Schistocytes PT 11.9 H INR 1.2 H D-Dimer 2802 H ABG Sample Site ABG pH ABG pCO2 ABG pO2 ABG HCO3 ABG Total CO2 ABG O2 Saturation ABG Base Excess VBG pH VBG pCO2 VBG pO2 VBG HCO3 VBG Total CO2 VBG O2 Saturation VBG Base Excess VBG Lactate Oxygen Liter Flow FiO2 Sodium Potassium Chloride Carbon Dioxide Anion Gap BUN Creatinine Estimated GFR/1.73 m2 Glucose Calcium Phosphorus Magnesium Ferritin 1625 H Total Bilirubin Conjugated Bilirubin AST ALT Alkaline Phosphatase Ammonia Creatine Kinase Troponin I 203 H* C-Reactive Protein < 0.05 NT-Pro-B Natriuret Pep Total Protein Albumin Lipase Vitamin B12 Folate Serum HCG, Qual Urine Color Urine Clarity Urine pH Ur Specific [place] Urine Protein Urine Ketones Urine Blood Urine Nitrite Urine Bilirubin Urine Urobilinogen Ur Leukocyte Esterase Urine Glucose Urine Opiates Screen Urine Methadone Screen Ur Barbiturates Screen Ur Tricyclics Screen Ur Amphetamines Screen U Benzodiazepines Scrn Urine Cocaine Screen Ur THC Screen Ethyl Alcohol COVID-19 Source SARS-CoV-2 (PCR) Influenza Type A (PCR) Influenza Type B (PCR) RSV (PCR) 08/10/21 08/10/21 08/11/21 18:30 18:30 06:15 WBC RBC Hgb Hct MCV MCH MCHC RDW Plt Count MPV Immature Gran % Neutrophils % Band Neutrophils % Lymphocytes % Atypical Lymphs % Monocytes % Eosinophils % Basophils % Metamyelocytes % Myelocytes % Promyelocytes % Other Cells % Nucleated RBC % Absolute Neutrophils Absolute Lymphocytes Absolute Monocytes Absolute Eosinophils Absolute Basophils RBC Morphology Polychromasia Hypochromasia Poikilocytosis Basophilic Stippling Anisocytosis Microcytosis Macrocytosis Spherocytes Tear Drop Cells Ovalocytes Stomatocytes [place] Bodies [place] Cells/Echinocytes Acanthocytes (Spur) Schistocytes PT INR D-Dimer ABG Sample Site ABG pH ABG pCO2 ABG pO2 ABG HCO3 ABG Total CO2 ABG O2 Saturation ABG Base Excess VBG pH VBG pCO2 VBG pO2 VBG HCO3 VBG Total CO2 VBG O2 Saturation VBG Base Excess VBG Lactate Oxygen Liter Flow FiO2 Sodium 136 Potassium 3.9 Chloride 102 Carbon Dioxide 21.2 Anion Gap 12.8 H BUN 2 L Creatinine 0.5 L D Estimated GFR/1.73 m2 >= 60.00 Glucose 74 D Calcium 7.2 L Phosphorus 3.0 Magnesium 1.8 Ferritin > 2000 H Total Bilirubin 2.3 H Conjugated Bilirubin 1.0 H AST 455 H ALT 106 H Alkaline Phosphatase 156 H Ammonia Creatine Kinase 211 H Troponin I C-Reactive Protein < 0.05 NT-Pro-B Natriuret Pep Total Protein 5.8 L Albumin 2.6 L Lipase Vitamin B12 1542 H Folate 10.0 Serum HCG, Qual Urine Color Yellow Urine Clarity Clear Urine pH 6.0 Ur Specific [place] 1.025 Urine Protein Negative Urine Ketones Negative Urine Blood Negative Urine Nitrite Negative Urine Bilirubin Negative Urine Urobilinogen 1.0 H Ur Leukocyte Esterase Negative Urine Glucose Negative Urine Opiates Screen Negative Urine Methadone Screen Negative Ur Barbiturates Screen Negative Ur Tricyclics Screen Negative Ur Amphetamines Screen Negative U Benzodiazepines Scrn Negative Urine Cocaine Screen Negative Ur THC Screen Negative Ethyl Alcohol COVID-19 Source SARS-CoV-2 (PCR) Influenza Type A (PCR) Influenza Type B (PCR) RSV (PCR) 08/11/21 08/11/21 08/11/21 06:15 06:15 09:15 WBC 2.42 L D RBC 2.95 L Hgb 9.8 L D Hct 29.8 L D MCV 101.0 H MCH 33.2 H MCHC 32.9 RDW 15.7 H Plt Count 60 L MPV 10.8 Immature Gran % 0.4 Neutrophils % 56.2 Band Neutrophils % Lymphocytes % 28.1 Atypical Lymphs % Monocytes % 12.4 Eosinophils % 0.8 Basophils % 2.1 Metamyelocytes % Myelocytes % Promyelocytes % Other Cells % Nucleated RBC % 0 Absolute Neutrophils 1.36 Absolute Lymphocytes 0.68 L Absolute Monocytes 0.30 Absolute Eosinophils 0.02 Absolute Basophils 0.05 RBC Morphology Polychromasia Hypochromasia Poikilocytosis Basophilic Stippling Anisocytosis Microcytosis Macrocytosis Spherocytes Tear Drop Cells Ovalocytes Stomatocytes [place] Bodies [place] Cells/Echinocytes Acanthocytes (Spur) Schistocytes PT 11.2 H INR 1.1 D-Dimer 3277 H ABG Sample Site ABG pH ABG pCO2 ABG pO2 ABG HCO3 ABG Total CO2 ABG O2 Saturation ABG Base Excess VBG pH VBG pCO2 VBG pO2 VBG HCO3 VBG Total CO2 VBG O2 Saturation VBG Base Excess VBG Lactate Oxygen Liter Flow FiO2 Sodium 138 Potassium 3.7 Chloride 103 Carbon Dioxide 14.8 L Anion Gap 20.2 H BUN 3 L Creatinine 0.9 Estimated GFR/1.73 m2 >= 60.00 Glucose 188 H D Calcium 9.0 Phosphorus Magnesium Ferritin Total Bilirubin Conjugated Bilirubin AST ALT Alkaline Phosphatase Ammonia Creatine Kinase Troponin I 118 H* C-Reactive Protein NT-Pro-B Natriuret Pep Total Protein Albumin Lipase Vitamin B12 Folate Serum HCG, Qual Urine Color Urine Clarity Urine pH Ur Specific [place] Urine Protein Urine Ketones Urine Blood Urine Nitrite Urine Bilirubin Urine Urobilinogen Ur Leukocyte Esterase Urine Glucose Urine Opiates Screen Urine Methadone Screen Ur Barbiturates Screen Ur Tricyclics Screen Ur Amphetamines Screen U Benzodiazepines Scrn Urine Cocaine Screen Ur THC Screen Ethyl Alcohol COVID-19 Source SARS-CoV-2 (PCR) Influenza Type A (PCR) Influenza Type B (PCR) RSV (PCR) 08/11/21 08/11/21 08/11/21 09:15 09:15 09:15 WBC RBC Hgb 10.0 L Hct 32.2 L MCV MCH MCHC RDW Plt Count MPV Immature Gran % Neutrophils % Band Neutrophils % Lymphocytes % Atypical Lymphs % Monocytes % Eosinophils % Basophils % Metamyelocytes % Myelocytes % Promyelocytes % Other Cells % Nucleated RBC % Absolute Neutrophils Absolute Lymphocytes Absolute Monocytes Absolute Eosinophils Absolute Basophils RBC Morphology Polychromasia Hypochromasia Poikilocytosis Basophilic Stippling Anisocytosis Microcytosis Macrocytosis Spherocytes Tear Drop Cells Ovalocytes Stomatocytes [place] Bodies [place] Cells/Echinocytes Acanthocytes (Spur) Schistocytes PT INR D-Dimer ABG Sample Site ABG pH ABG pCO2 ABG pO2 ABG HCO3 ABG Total CO2 ABG O2 Saturation ABG Base Excess VBG pH VBG pCO2 VBG pO2 VBG HCO3 VBG Total CO2 VBG O2 Saturation VBG Base Excess VBG Lactate 13.3 H* Oxygen Liter Flow FiO2 Sodium Potassium Chloride Carbon Dioxide Anion Gap BUN Creatinine Estimated GFR/1.73 m2 Glucose Calcium Phosphorus Magnesium 7.2 H* Ferritin Total Bilirubin Conjugated Bilirubin AST ALT Alkaline Phosphatase Ammonia Creatine Kinase Troponin I C-Reactive Protein NT-Pro-B Natriuret Pep 1579 H Total Protein Albumin Lipase Vitamin B12 Folate Serum HCG, Qual Urine Color Urine Clarity Urine pH Ur Specific [place] Urine Protein Urine Ketones Urine Blood Urine Nitrite Urine Bilirubin Urine Urobilinogen Ur Leukocyte Esterase Urine Glucose Urine Opiates Screen Urine Methadone Screen Ur Barbiturates Screen Ur Tricyclics Screen Ur Amphetamines Screen U Benzodiazepines Scrn Urine Cocaine Screen Ur THC Screen Ethyl Alcohol COVID-19 Source SARS-CoV-2 (PCR) Influenza Type A (PCR) Influenza Type B (PCR) RSV (PCR) 08/11/21 08/11/21 08/11/21 09:15 09:18 09:35 WBC RBC Hgb Hct MCV MCH MCHC RDW Plt Count MPV Immature Gran % Neutrophils % Band Neutrophils % Lymphocytes % Atypical Lymphs % Monocytes % Eosinophils % Basophils % Metamyelocytes % Myelocytes % Promyelocytes % Other Cells % Nucleated RBC % Absolute Neutrophils Absolute Lymphocytes Absolute Monocytes Absolute Eosinophils Absolute Basophils RBC Morphology Polychromasia Hypochromasia Poikilocytosis Basophilic Stippling Anisocytosis Microcytosis Macrocytosis Spherocytes Tear Drop Cells Ovalocytes Stomatocytes [place] Bodies [place] Cells/Echinocytes Acanthocytes (Sp[place]) Schistocytes PT INR D-Dimer Cancelled ABG Sample Site Arterial Line Arterial Line ABG pH 7.10 L* 7.25 L ABG pCO2 43 30 L ABG pO2 73 L 248 H ABG HCO3 13 L 13 L ABG Total CO2 13 L ABG O2 Saturation 87 L > 99 H ABG Base Excess -15 L -14 L VBG pH VBG pCO2 VBG pO2 VBG HCO3 VBG Total CO2 VBG O2 Saturation VBG Base Excess VBG Lactate Oxygen Liter Flow 15 FiO2 100 100 Sodium Potassium Chloride Carbon Dioxide Anion Gap BUN Creatinine Estimated GFR/1.73 m2 Glucose Calcium Phosphorus Magnesium Ferritin Total Bilirubin Conjugated Bilirubin AST ALT Alkaline Phosphatase Ammonia Creatine Kinase Troponin I C-Reactive Protein NT-Pro-B Natriuret Pep Total Protein Albumin Lipase Vitamin B12 Folate Serum HCG, Qual Urine Color Urine Clarity Urine pH Ur Specific [place] Urine Protein Urine Ketones Urine Blood Urine Nitrite Urine Bilirubin Urine Urobilinogen Ur Leukocyte Esterase Urine Glucose Urine Opiates Screen Urine Methadone Screen Ur Barbiturates Screen Ur Tricyclics Screen Ur Amphetamines Screen U Benzodiazepines Scrn Urine Cocaine Screen Ur THC Screen Ethyl Alcohol COVID-19 Source SARS-CoV-2 (PCR) Influenza Type A (PCR) Influenza Type B (PCR) RSV (PCR) 08/11/21 09:36 WBC RBC Hgb Hct MCV MCH MCHC RDW Plt Count MPV Immature Gran % Neutrophils % Band Neutrophils % Lymphocytes % Atypical Lymphs % Monocytes % Eosinophils % Basophils % Metamyelocytes % Myelocytes % Promyelocytes % Other Cells % Nucleated RBC % Absolute Neutrophils Absolute Lymphocytes Absolute Monocytes Absolute Eosinophils Absolute Basophils RBC Morphology Polychromasia Hypochromasia Poikilocytosis Basophilic Stippling Anisocytosis Microcytosis Macrocytosis Spherocytes Tear Drop Cells Ovalocytes Stomatocytes [place] Bodies [place] Cells/Echinocytes Acanthocytes (Spur) Schistocytes PT INR D-Dimer ABG Sample Site ABG pH ABG pCO2 ABG pO2 ABG HCO3 ABG Total CO2 ABG O2 Saturation ABG Base Excess VBG pH VBG pCO2 VBG pO2 VBG HCO3 VBG Total CO2 VBG O2 Saturation VBG Base Excess VBG Lactate Oxygen Liter Flow FiO2 Sodium Potassium Chloride Carbon Dioxide Anion Gap BUN Creatinine Estimated GFR/1.73 m2 Glucose Calcium Phosphorus Magnesium Ferritin Total Bilirubin Conjugated Bilirubin AST ALT Alkaline Phosphatase Ammonia Creatine Kinase Troponin I C-Reactive Protein NT-Pro-B Natriuret Pep Total Protein Albumin Lipase Vitamin B12 Folate Serum HCG, Qual Urine Color Urine Clarity Urine pH Ur Specific [place] Urine Protein Urine Ketones Urine Blood Urine Nitrite Urine Bilirubin Urine Urobilinogen Ur Leukocyte Esterase Urine Glucose Urine Opiates Screen Urine Methadone Screen Ur Barbiturates Screen Ur Tricyclics Screen Ur Amphetamines Screen U Benzodiazepines Scrn Urine Cocaine Screen Ur THC Screen Ethyl Alcohol COVID-19 Source Nasal/Nares SARS-CoV-2 (PCR) Influenza Type A (PCR) Influenza Type B (PCR) RSV (PCR) Review of Systems Unobtainable due to endotracheal tube Time spent with patient Time spent in Critical Care: 180 Time spent in Critical care included: Coordination of care, Chart review, Documenting critically ill care, Time at immediate bedside and Discussing critically ill care with other medical staff
[2021-08-11 10:57] LABS: BE -10 mmol/L (-2-3); HCO3 16 mmol/L (22-26); pCO2 32 mmHg (35-45); pH 7.31 (7.35-7.45); pO2 114 mmHg (80-105); sO2 98 % (95-98); tCO2 15 mmol/L (23-27)
[2021-08-11 10:58] LABS: FIO2 60 %; Site Arterial Line
[2021-08-11 11:03] LABS: COVID-19 PCR Negative (Negative)
[2021-08-11] MEDS: Metoprolol 5 MG/5 ML VIAL (11:12)
[2021-08-11] MEDS: LIDOCAINE/D5W 2,000 MG/500 ML BAG 30 MG IV (11:15)
[2021-08-11 11:17] LABS: D-Dimer > 7500 ng/mlFEU (<500)
--- NOTE | 2021-08-11 11:17 | W.PM.OP ---
Date of service: 08/11/21 Time of Service: 11:17 Operative Note Operative Note DATE OF PROCEDURE: 08/11/21 PRE-OP DIAGNOSIS: cardiac arrest POST-OP DIAGNOSIS: same PROCEDURE: left femoral line SURGEON: Danni Saucedo Refer to Anesthesia Record ESTIMATED BLOOD LOSS: 3 COMPLICATIONS: None Patient was transported to: no change Patient's condition: critical Procedure Description: The procedure was emergent, the patient was unable to provide consent, and a designee was not immediately available. PROCEDURE SUMMARY: The line was placed in an unsterile fashion during a CODE BLUE situation. The LEFT inguinal region was prepped using chlorhexidine scrub and draped in the usual sterile fashion. The femoral pulse was identified. Palpating the femoral pulse throughout the procedure, the introducer needle was inserted medial to the femoral artery, inferior to the inguinal crease and into the femoral vein. Venous blood was withdrawn. The syringe was removed and a guidewire was advanced into the introducer needle. A small incision was made at the skin surface with a scalpel and the introducer needle was exchanged for a dilator over the guidewire. After appropriate dilation was obtained, the dilator was exchanged over the wire for a single lumen central venous catheter. The wire was removed and the catheter was sutured in place at 15 cm. A sterile sorbaview shield was placed over the catheter at the insertion site. The patient tolerated the procedure. This was placed during a code situation. At time of procedure completion, all ports aspirated and flushed properly. Estimated blood loss is 3. After insertion of the single lumen, it was decided more ports were required. The line was cleaned w/ Chloro-prep. A sterile guide wire was placed through the line, and a line exchange was done, replacing the single lumen w/ a triple lumen. It was sewn into placed. Sterile sorbaview and dressing are placed. All ports are flushed. Pt remained in the ICU in critical condition.
--- NOTE | 2021-08-11 11:17 | W.PM.OP ---
Date of service: 08/11/21 Time of Service: 11:17 Operative Note Operative Note DATE OF PROCEDURE: 08/11/21 PRE-OP DIAGNOSIS: cardiac arrest POST-OP DIAGNOSIS: same PROCEDURE: Left tibia IO insertion SURGEON: Danni Saucedo ANESTHESIA TYPE: Other Refer to Anesthesia Record ESTIMATED BLOOD LOSS: 1 PATHOLOGY: none sent COMPLICATIONS: None Patient was transported to: no change Patient's condition: critical Procedure Description: Intraosseous Line Placement Indication: IV access required for cardiac arrest Multiple attempts at peripheral IV placement were made by the nursing staff without success Consent: Critical Intervention-unable to obtain Procedure: The area was prepped in the usual sterile fashion. The [R] [tibia] was cannulated with a 45 gauge IO angiocath. The patient tolerated the procedure well. Complications: none Estimated Blood Loss: 1 Prosthetic devices/implants: no scars apparent Sterile dressing was applied. Line was used for infusion.
[2021-08-11] MEDS: Sodium Bicarbonate 50 MEQ/50 ML SYR IVP (11:30)
--- NOTE | 2021-08-11 11:32 | W.ANESVAS ---
Peripheral IV Placement Date Performed: 08/11/21 Procedure Time: 10:00 Requesting Provider: Dayna Camejo Procedure Location: Intensive Care Unit Sedation Given (Indicate Dose Given): No Sedation given Patient Mental Status: Other Laterality: Right Insertion Site: External Jugular Size & Type: 16 ga. Dressing: Tegaderm Applied Ultrasound: Not Used Number of Attempts (See previous attempts in note section): 1 Procedure Tolerated: No Complications Procedure Outcome: Successful Procedure Comment: CPR in progress, refer to code sheet for the time of actual placement Performed By: James Avitia
--- NOTE | 2021-08-11 11:35 | W.ANESVAS ---
Arterial Line Placement Date Performed: 08/11/21 Procedure Time: 10:30 Procedure Location: Intensive Care Unit Requesting Provider: Dayna Camejo Timeout Performed: No Sedation Given (Indicate Dose Given): No Sedation given Patient Mental Status: Other Sterility: Hand Hygiene, Surgical Cap, Surgical Mask, Sterile Gloves, Sterile Drape/Sheet and Chlorhexidine Laterality: Left Insertion Site: Radial Arterial Line Catheter: 20G Arrow Arterial Line Procedure: Vessel accessed with catheter over needle, Guidewire placed with ease, Catheter placed without resistance and Guidewire removed Dressing: Tegaderm Applied and Sutured in Place Ultrasound: Not Used Number of Attempts (See previous attempts in note section): 1 Procedure Tolerated: No Complications Procedure Outcome: Successful Procedure Comment:: please see code documentation for time of art line placement. Performed By: James Avitia
[2021-08-11 11:50] LABS: Lab Add On Test DONE
[2021-08-11 11:58] LABS: Acetaminophen 3 ug/mL (10-30)
--- NOTE | 2021-08-11 12:06 | W.PM.DS.N ---
Date of service: 08/11/21 Time of Service: 12:08 DS: Diagnosis Discharge Diagnosis (1) Cardiac arrest: Status: Acute (2) V-tach: Status: Chronic (3) Ventricular fibrillation: Status: Acute (4) Alcohol withdrawal: Status: Acute (5) Elevated troponin: Status: Acute (6) Left upper lobe pneumonia: Status: Acute (7) Hypomagnesemia: Status: Resolved Asessment and Plan: magnesium level after loading with 6 grams of magnesium during the code is 7.2; repeat is pending (8) Transaminitis: Status: Acute (9) Alcoholic hepatitis: Status: Acute Asessment and Plan: Maddrey's Discriminiant Function score 3.2 - no role for prednisolone (10) Lactic acidosis: Status: Acute (11) Pancytopenia: Status: Acute Asessment and Plan: No active bleeding (12) Hypokalemia: Status: Resolved (13) Alcohol abuse: Status: Chronic (14) Exposure to COVID-19 virus: Status: Acute Asessment and Plan: COVID PCR negative x 2 Discharge Plan Disposition Patient Disposition: [facility] Condition: Critical Discharge Details Reason For Visit: Alcohol Withdrawal; PUI Admit Date/Time: 08/10/21 15:27 Admit Provider: Heather Strickland Attending Provider: Heather Strickland Primary Care Provider: None,None Hospital Course Hospital Course: Ms Yadav is a 35 year old female with PMHx of alcohol abuse and anxiety/panic d/os, who was admitted to [facility] ICU on 08/10/2021 for alcohol withdrawal and mildly elevated troponin without evidence of ischemia on EKG and with preserved LV wall motion and LVEF on the echo. The patient had also been exposed to covid-19 by her boyfriend, who had tested positive, and she herself reported a sore throat. She tested negative for COVID-19 on admission as well as on follow up today (PCR). The patient was initiated on benzodiazepine pathway for treatment of her alcohol withdrawal as she had transaminitis on her bloodwork, suggestive of acute liver injury/alcoholic hepatitis. The patient's CIWA scores were 10-19 throughout the night. She did not have any arrhythmic events overnight. She did not have hypoxia or respiratory compromise. This morning, at around 0840 am, a code blue was called. The patient was noted to be in Vtach, reporting that she was dizzy, lost consciousness and became pulseless. Rhythm at that time deteriorated into Vfib. The patient received multiple rounds of defibrillation, epinephrine, was loaded with amiodarone and magnesium (6 grams) given that there was a suspicion for torsades morphology initially, also receiving calcium and bicarb during the code with ROSC and an organized rhythm on the monitor being achieved. The patient was intubated during the code. She was sedated with propofol, initiated on amiodarone drip and norepinephrine drips. She has a left femoral CVL and a L radial line. She was again noted to be going into Vtach. This time, she never lost pulse. Electrical cardioversion was not successful, but bolus of IV lidocaine was immediately helpful. Lidocaine gtt was added on to amiodarone gtt. Cardiology consult at bedside recommended addition of beta blockers (2.5 mg of metoprolol IV given) and lowering the rate of norepinephrine if possible. Stat repeat echo did not show any changes. Repeat troponin was lower than the two numbers yesterday (231->203->118). The patient required addition of ketamine and precedex to keep her calmly sedated with boluses of midazolam and fentanyl prn. As far as etiology for the patient's Vtach today, her TSH is 8.69, FT4 is pending, but these labs were collected after the code, and will need to be rechecked again farther away from her acute event. 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 At this time, we cannot rule out a PE. UDS was clean. She is receiving the librium via the OG tube for her alcohol withdrawal in addition to being on propofol as well as precedex for alcohol withdrawal. There is evidence of SKY PNA on CXR, and the patient did have a LLE IO placed (and now removed) during the code, for which she was initiated on zosyn. The patient is felt to benefit from a transfer to a tertiary care facility with interventional cardiology/EP in house for further workup and treatment of her Vtach/Vfib. She was accepted in transfer by Dr Armendariz of [facility] ICU. Her condition is critical, but as she is currently in SR, she is deemed optimized for transfer. Total Critical Care Time 200 minutes. Please, look at MAR for list of current inpatient medications as the list below reflects outpatient prescriptions. Home Meds and New Rx's Prescriptions: No Action trazodone 50 mg tablet 1 - 3 PO .QHS PRNRF: 0 lorazepam 0.5 mg Tablet 0.5 - 1 mg PO BID PRNRF: 0 propranolol 20 mg tablet 20 mg PO DAILY RF: 0 Discharge Instructions Activity:: bedrest, wrist restraints Equipment/Supplies:: per ambulance crew Diet:: NPO Discharge Orders Discharge Orders: Discharge Order (Routine); Ordered 08/11/21 Ordered By: Heather Strickland DS: Summary Time Spent with Patient providing and/or coordinating discharge services: Greater than 30 minutes Status at Discharge Functional status at discharge: bed bound Overall status at discharge: patient is not back to baseline Mental Status: other Speech and Movement: other Mood: other Affect: other Exam Narrative Exam Narrative: General: Intubated, sedated HEENT: EOMI, MMM Heart: RRR, no m/r/g Lungs: CTAB anteriorly (ventilator sounds) Abdomen: soft, nondistended Extremities: BUEs in soft restraints, BLEs w/o edema. +1 pedal pulses B. LLE - IO site at tibial surface dressed. Psych Mental Status: other Speech and Movement: other Mood: other Affect: other DS: Data Vitals/I&O Vitals and I&O: Vital Signs Temperature 36.6 C 08/11/21 04:10 Temperature Source Temporal Artery Scan 08/11/21 04:10 Pulse 97 H 08/11/21 02:01 Pulse 130 H 08/11/21 04:01 Respiratory Rate 16 08/11/21 10:05 Respiratory Effort 08/11/21 04:10 Respiratory Depth Normal 08/11/21 04:10 Respiratory Pattern Normal 08/11/21 04:10 Blood Pressure 99/75 L 08/11/21 04:01 Blood Pressure Mean 81 08/11/21 04:01 Blood Pressure Position Supine 08/11/21 04:10 Pulse Oximetry 99 08/11/21 10:05 Respiratory End-tidal CO2 30 08/11/21 10:05 Oxygen Delivery Method Room Air 08/11/21 04:10 Oxygen Flow Rate 0 08/11/21 04:10 Fraction of Inspired Oxygen (FIO2) 40 08/11/21 11:37 Pain Level 0 08/10/21 21:00 Intake & Output 08/10/21 08/11/21 08/11/21 23:59 11:59 23:59 Intake Total 3973.2 / 3973.2 1600 / 1600 Output Total 500 / 500 1200 / 1200 Balance 3473.2 / 3473.2 400 / 400 Weight 71.4 kg 80.5 kg Intake: IV 3673.2 / 3673.2 1000 / 1000 Oral 300 / 300 600 / 600 Output: Urine 500 / 500 1200 / 1200 Other: Urine Color Dark Laura Yellow Urine Appearance Clear Clear Urine Odor Normal Voiding Methods Indwelling Catheter Data Completed and Pending Labs on day of discharge: Labs from last 24 hours 08/11/21 08/11/21 08/11/21 12:00 12:00 10:40 WBC RBC Hgb Hct MCV MCH MCHC RDW Plt Count MPV Immature Gran % Neutrophils % Band Neutrophils % Lymphocytes % Atypical Lymphs % Monocytes % Eosinophils % Basophils % Metamyelocytes % Myelocytes % Promyelocytes % Other Cells % Nucleated RBC % Absolute Neutrophils Absolute Lymphocytes Absolute Monocytes Absolute Eosinophils Absolute Basophils RBC Morphology Polychromasia Hypochromasia Poikilocytosis Basophilic Stippling Anisocytosis Microcytosis Macrocytosis Spherocytes Tear Drop Cells Ovalocytes Stomatocytes [place] Bodies [place] Cells/Echinocytes Acanthocytes (Spur) Schistocytes PT INR D-Dimer ABG Sample Site Arterial Line ABG pH 7.31 L ABG pCO2 32 L ABG pO2 114 H ABG HCO3 16 L ABG Total CO2 15 L ABG O2 Saturation 98 ABG Base Excess -10 L VBG pH VBG pCO2 VBG pO2 VBG HCO3 VBG Total CO2 VBG O2 Saturation VBG Base Excess VBG Lactate Oxygen Liter Flow FiO2 60 Sodium Potassium Chloride Carbon Dioxide Anion Gap BUN Creatinine Estimated GFR/1.73 m2 Glucose Calcium Phosphorus Magnesium Pending Ferritin Total Bilirubin Conjugated Bilirubin AST ALT Alkaline Phosphatase Ammonia Creatine Kinase Troponin I Pending C-Reactive Protein NT-Pro-B Natriuret Pep Total Protein Albumin Lipase Vitamin B12 25-OH Vitamin D Total Folate TSH Prolactin Serum HCG, Qual Urine Color Urine Clarity Urine pH Ur Specific [place] Urine Protein Urine Ketones Urine Blood Urine Nitrite Urine Bilirubin Urine Urobilinogen Ur Leukocyte Esterase Urine Glucose Urine Opiates Screen Urine Methadone Screen Acetaminophen Ur Barbiturates Screen Ur Tricyclics Screen Ur Amphetamines Screen U Benzodiazepines Scrn Urine Cocaine Screen Ur THC Screen Ethyl Alcohol COVID-19 Source SARS-CoV-2 (PCR) Hep Bs Antigen Hep Bs Antibody Hep Bs Antibody, Quant Hep B Core Total Ab Hepatitis C Antibody Influenza Type A (PCR) Influenza Type B (PCR) RSV (PCR) Add-On Test Request 08/11/21 08/11/21 08/11/21 10:25 09:36 09:35 WBC RBC Hgb Hct MCV MCH MCHC RDW Plt Count MPV Immature Gran % Neutrophils % Band Neutrophils % Lymphocytes % Atypical Lymphs % Monocytes % Eosinophils % Basophils % Metamyelocytes % Myelocytes % Promyelocytes % Other Cells % Nucleated RBC % Absolute Neutrophils Absolute Lymphocytes Absolute Monocytes Absolute Eosinophils Absolute Basophils RBC Morphology Polychromasia Hypochromasia Poikilocytosis Basophilic Stippling Anisocytosis Microcytosis Macrocytosis Spherocytes Tear Drop Cells Ovalocytes Stomatocytes [place] Bodies [place] Cells/Echinocytes Acanthocytes (Spur) Schistocytes PT INR D-Dimer > 7500 H ABG Sample Site Arterial Line ABG pH 7.25 L ABG pCO2 30 L ABG pO2 248 H ABG HCO3 13 L ABG Total CO2 ABG O2 Saturation > 99 H ABG Base Excess -14 L VBG pH VBG pCO2 VBG pO2 VBG HCO3 VBG Total CO2 VBG O2 Saturation VBG Base Excess VBG Lactate Oxygen Liter Flow FiO2 100 Sodium Potassium Chloride Carbon Dioxide Anion Gap BUN Creatinine Estimated GFR/1.73 m2 Glucose Calcium Phosphorus Magnesium Ferritin Total Bilirubin Conjugated Bilirubin AST ALT Alkaline Phosphatase Ammonia Creatine Kinase Troponin I C-Reactive Protein NT-Pro-B Natriuret Pep Total Protein Albumin Lipase Vitamin B12 25-OH Vitamin D Total Folate TSH Prolactin Serum HCG, Qual Urine Color Urine Clarity Urine pH Ur Specific [place] Urine Protein Urine Ketones Urine Blood Urine Nitrite Urine Bilirubin Urine Urobilinogen Ur Leukocyte Esterase Urine Glucose Urine Opiates Screen Urine Methadone Screen Acetaminophen Ur Barbiturates Screen Ur Tricyclics Screen Ur Amphetamines Screen U Benzodiazepines Scrn Urine Cocaine Screen Ur THC Screen Ethyl Alcohol COVID-19 Source Nasal/Nares SARS-CoV-2 (PCR) Negative Hep Bs Antigen Hep Bs Antibody Hep Bs Antibody, Quant Hep B Core Total Ab Hepatitis C Antibody Influenza Type A (PCR) Influenza Type B (PCR) RSV (PCR) Add-On Test Request 08/11/21 08/11/21 08/11/21 09:18 09:15 09:15 WBC RBC Hgb Hct MCV MCH MCHC RDW Plt Count MPV Immature Gran % Neutrophils % Band Neutrophils % Lymphocytes % Atypical Lymphs % Monocytes % Eosinophils % Basophils % Metamyelocytes % Myelocytes % Promyelocytes % Other Cells % Nucleated RBC % Absolute Neutrophils Absolute Lymphocytes Absolute Monocytes Absolute Eosinophils Absolute Basophils RBC Morphology Polychromasia Hypochromasia Poikilocytosis Basophilic Stippling Anisocytosis Microcytosis Macrocytosis Spherocytes Tear Drop Cells Ovalocytes Stomatocytes [place] Bodies [place] Cells/Echinocytes Acanthocytes (Spur) Schistocytes PT INR D-Dimer Cancelled ABG Sample Site Arterial Line ABG pH 7.10 L* ABG pCO2 43 ABG pO2 73 L ABG HCO3 13 L ABG Total CO2 13 L ABG O2 Saturation 87 L ABG Base Excess < -15 L VBG pH VBG pCO2 VBG pO2 VBG HCO3 VBG Total CO2 VBG O2 Saturation VBG Base Excess VBG Lactate Oxygen Liter Flow 15 FiO2 100 Sodium Potassium Chloride Carbon Dioxide Anion Gap BUN Creatinine Estimated GFR/1.73 m2 Glucose Calcium Phosphorus Magnesium Ferritin Total Bilirubin Conjugated Bilirubin AST ALT Alkaline Phosphatase Ammonia Creatine Kinase Troponin I C-Reactive Protein NT-Pro-B Natriuret Pep Total Protein Albumin Lipase Vitamin B12 25-OH Vitamin D Total Folate TSH Prolactin Serum HCG, Qual Urine Color Urine Clarity Urine pH Ur Specific [place] Urine Protein Urine Ketones Urine Blood Urine Nitrite Urine Bilirubin Urine Urobilinogen Ur Leukocyte Esterase Urine Glucose Urine Opiates Screen Urine Methadone Screen Acetaminophen Pending Ur Barbiturates Screen Ur Tricyclics Screen Ur Amphetamines Screen U Benzodiazepines Scrn Urine Cocaine Screen Ur THC Screen Ethyl Alcohol COVID-19 Source SARS-CoV-2 (PCR) Hep Bs Antigen Hep Bs Antibody Hep Bs Antibody, Quant Hep B Core Total Ab Hepatitis C Antibody Influenza Type A (PCR) Influenza Type B (PCR) RSV (PCR) Add-On Test Request 08/11/21 08/11/21 08/11/21 09:15 09:15 09:15 WBC RBC Hgb 10.0 L Hct 32.2 L MCV MCH MCHC RDW Plt Count MPV Immature Gran % Neutrophils % Band Neutrophils % Lymphocytes % Atypical Lymphs % Monocytes % Eosinophils % Basophils % Metamyelocytes % Myelocytes % Promyelocytes % Other Cells % Nucleated RBC % Absolute Neutrophils Absolute Lymphocytes Absolute Monocytes Absolute Eosinophils Absolute Basophils RBC Morphology Polychromasia Hypochromasia Poikilocytosis Basophilic Stippling Anisocytosis Microcytosis Macrocytosis Spherocytes Tear Drop Cells Ovalocytes Stomatocytes [place] Bodies [place] Cells/Echinocytes Acanthocytes (Spur) Schistocytes PT INR D-Dimer ABG Sample Site ABG pH ABG pCO2 ABG pO2 ABG HCO3 ABG Total CO2 ABG O2 Saturation ABG Base Excess VBG pH VBG pCO2 VBG pO2 VBG HCO3 VBG Total CO2 VBG O2 Saturation VBG Base Excess VBG Lactate 13.3 H* Oxygen Liter Flow FiO2 Sodium Potassium Chloride Carbon Dioxide Anion Gap BUN Creatinine Estimated GFR/1.73 m2 Glucose Calcium Phosphorus Magnesium 7.2 H* Ferritin Total Bilirubin Conjugated Bilirubin AST ALT Alkaline Phosphatase Ammonia Creatine Kinase Troponin I C-Reactive Protein NT-Pro-B Natriuret Pep 1579 H Total Protein Albumin Lipase Vitamin B12 25-OH Vitamin D Total Folate TSH Prolactin Serum HCG, Qual Urine Color Urine Clarity Urine pH Ur Specific [place] Urine Protein Urine Ketones Urine Blood Urine Nitrite Urine Bilirubin Urine Urobilinogen Ur Leukocyte Esterase Urine Glucose Urine Opiates Screen Urine Methadone Screen Acetaminophen Ur Barbiturates Screen Ur Tricyclics Screen Ur Amphetamines Screen U Benzodiazepines Scrn Urine Cocaine Screen Ur THC Screen Ethyl Alcohol COVID-19 Source SARS-CoV-2 (PCR) Hep Bs Antigen Hep Bs Antibody Hep Bs Antibody, Quant Hep B Core Total Ab Hepatitis C Antibody Influenza Type A (PCR) Influenza Type B (PCR) RSV (PCR) Add-On Test Request 08/11/21 08/11/21 08/11/21 09:15 09:10 09:10 WBC RBC Hgb Hct MCV MCH MCHC RDW Plt Count MPV Immature Gran % Neutrophils % Band Neutrophils % Lymphocytes % Atypical Lymphs % Monocytes % Eosinophils % Basophils % Metamyelocytes % Myelocytes % Promyelocytes % Other Cells % Nucleated RBC % Absolute Neutrophils Absolute Lymphocytes Absolute Monocytes Absolute Eosinophils Absolute Basophils RBC Morphology Polychromasia Hypochromasia Poikilocytosis Basophilic Stippling Anisocytosis Microcytosis Macrocytosis Spherocytes Tear Drop Cells Ovalocytes Stomatocytes [place] Bodies [place] Cells/Echinocytes Acanthocytes (Spur) Schistocytes PT INR D-Dimer ABG Sample Site ABG pH ABG pCO2 ABG pO2 ABG HCO3 ABG Total CO2 ABG O2 Saturation ABG Base Excess VBG pH VBG pCO2 VBG pO2 VBG HCO3 VBG Total CO2 VBG O2 Saturation VBG Base Excess VBG Lactate Oxygen Liter Flow FiO2 Sodium 138 Potassium 3.7 Chloride 103 Carbon Dioxide 14.8 L Anion Gap 20.2 H BUN 3 L Creatinine 0.9 Estimated GFR/1.73 m2 >= 60.00 Glucose 188 H D Calcium 9.0 Phosphorus Magnesium Ferritin Total Bilirubin Conjugated Bilirubin AST ALT Alkaline Phosphatase Ammonia Creatine Kinase Troponin I 118 H* C-Reactive Protein NT-Pro-B Natriuret Pep Total Protein Albumin Lipase Vitamin B12 25-OH Vitamin D Total Folate TSH Pending Prolactin Serum HCG, Qual Urine Color Urine Clarity Urine pH Ur Specific [place] Urine Protein Urine Ketones Urine Blood Urine Nitrite Urine Bilirubin Urine Urobilinogen Ur Leukocyte Esterase Urine Glucose Urine Opiates Screen Urine Methadone Screen Acetaminophen Ur Barbiturates Screen Ur Tricyclics Screen Ur Amphetamines Screen U Benzodiazepines Scrn Urine Cocaine Screen Ur THC Screen Ethyl Alcohol COVID-19 Source SARS-CoV-2 (PCR) Hep Bs Antigen Hep Bs Antibody Hep Bs Antibody, Quant Hep B Core Total Ab Hepatitis C Antibody Influenza Type A (PCR) Influenza Type B (PCR) RSV (PCR) Add-On Test Request DONE 08/11/21 08/11/21 08/11/21 06:15 06:15 06:15 WBC 2.42 L D RBC 2.95 L Hgb 9.8 L D Hct 29.8 L D MCV 101.0 H MCH 33.2 H MCHC 32.9 RDW 15.7 H Plt Count 60 L MPV 10.8 Immature Gran % 0.4 Neutrophils % 56.2 Band Neutrophils % Lymphocytes % 28.1 Atypical Lymphs % Monocytes % 12.4 Eosinophils % 0.8 Basophils % 2.1 Metamyelocytes % Myelocytes % Promyelocytes % Other Cells % Nucleated RBC % 0 Absolute Neutrophils 1.36 Absolute Lymphocytes 0.68 L Absolute Monocytes 0.30 Absolute Eosinophils 0.02 Absolute Basophils 0.05 RBC Morphology Polychromasia Hypochromasia Poikilocytosis Basophilic Stippling Anisocytosis Microcytosis Macrocytosis Spherocytes Tear Drop Cells Ovalocytes Stomatocytes [place] Bodies [place] Cells/Echinocytes Acanthocytes (Spur) Schistocytes PT 11.2 H INR 1.1 D-Dimer 3277 H ABG Sample Site ABG pH ABG pCO2 ABG pO2 ABG HCO3 ABG Total CO2 ABG O2 Saturation ABG Base Excess VBG pH VBG pCO2 VBG pO2 VBG HCO3 VBG Total CO2 VBG O2 Saturation VBG Base Excess VBG Lactate Oxygen Liter Flow FiO2 Sodium Potassium Chloride Carbon Dioxide Anion Gap BUN Creatinine Estimated GFR/1.73 m2 Glucose Calcium Phosphorus Magnesium Ferritin Total Bilirubin Conjugated Bilirubin AST ALT Alkaline Phosphatase Ammonia Creatine Kinase Troponin I C-Reactive Protein NT-Pro-B Natriuret Pep Total Protein Albumin Lipase Vitamin B12 25-OH Vitamin D Total Folate TSH Prolactin Serum HCG, Qual Urine Color Urine Clarity Urine pH Ur Specific [place] Urine Protein Urine Ketones Urine Blood Urine Nitrite Urine Bilirubin Urine Urobilinogen Ur Leukocyte Esterase Urine Glucose Urine Opiates Screen Urine Methadone Screen Acetaminophen Ur Barbiturates Screen Ur Tricyclics Screen Ur Amphetamines Screen U Benzodiazepines Scrn Urine Cocaine Screen Ur THC Screen Ethyl Alcohol COVID-19 Source SARS-CoV-2 (PCR) Hep Bs Antigen Pending Hep Bs Antibody Pending Hep Bs Antibody, Quant Pending Hep B Core Total Ab Pending Hepatitis C Antibody Pending Influenza Type A (PCR) Influenza Type B (PCR) RSV (PCR) Add-On Test Request 08/11/21 08/11/21 08/10/21 06:15 06:15 18:30 WBC RBC Hgb Hct MCV MCH MCHC RDW Plt Count MPV Immature Gran % Neutrophils % Band Neutrophils % Lymphocytes % Atypical Lymphs % Monocytes % Eosinophils % Basophils % Metamyelocytes % Myelocytes % Promyelocytes % Other Cells % Nucleated RBC % Absolute Neutrophils Absolute Lymphocytes Absolute Monocytes Absolute Eosinophils Absolute Basophils RBC Morphology Polychromasia Hypochromasia Poikilocytosis Basophilic Stippling Anisocytosis Microcytosis Macrocytosis Spherocytes Tear Drop Cells Ovalocytes Stomatocytes [place] Bodies [place] Cells/Echinocytes Acanthocytes (Spur) Schistocytes PT INR D-Dimer ABG Sample Site ABG pH ABG pCO2 ABG pO2 ABG HCO3 ABG Total CO2 ABG O2 Saturation ABG Base Excess VBG pH VBG pCO2 VBG pO2 VBG HCO3 VBG Total CO2 VBG O2 Saturation VBG Base Excess VBG Lactate Oxygen Liter Flow FiO2 Sodium 136 Potassium 3.9 Chloride 102 Carbon Dioxide 21.2 Anion Gap 12.8 H BUN 2 L Creatinine 0.5 L D Estimated GFR/1.73 m2 >= 60.00 Glucose 74 D Calcium 7.2 L Phosphorus 3.0 Magnesium 1.8 Ferritin > 2000 H Total Bilirubin 2.3 H Conjugated Bilirubin 1.0 H AST 455 H ALT 106 H Alkaline Phosphatase 156 H Ammonia Creatine Kinase 211 H Troponin I C-Reactive Protein < 0.05 NT-Pro-B Natriuret Pep Total Protein 5.8 L Albumin 2.6 L Lipase Vitamin B12 1542 H 25-OH Vitamin D Total Pending Folate 10.0 TSH Prolactin Serum HCG, Qual Urine Color Urine Clarity Urine pH Ur Specific [place] Urine Protein Urine Ketones Urine Blood Urine Nitrite Urine Bilirubin Urine Urobilinogen Ur Leukocyte Esterase Urine Glucose Urine Opiates Screen Negative Urine Methadone Screen Negative Acetaminophen Ur Barbiturates Screen Negative Ur Tricyclics Screen Negative Ur Amphetamines Screen Negative U Benzodiazepines Scrn Negative Urine Cocaine Screen Negative Ur THC Screen Negative Ethyl Alcohol COVID-19 Source SARS-CoV-2 (PCR) Hep Bs Antigen Hep Bs Antibody Hep Bs Antibody, Quant Hep B Core Total Ab Hepatitis C Antibody Influenza Type A (PCR) Influenza Type B (PCR) RSV (PCR) Add-On Test Request 08/10/21 08/10/21 08/10/21 18:30 17:00 17:00 WBC RBC Hgb Hct MCV MCH MCHC RDW Plt Count MPV Immature Gran % Neutrophils % Band Neutrophils % Lymphocytes % Atypical Lymphs % Monocytes % Eosinophils % Basophils % Metamyelocytes % Myelocytes % Promyelocytes % Other Cells % Nucleated RBC % Absolute Neutrophils Absolute Lymphocytes Absolute Monocytes Absolute Eosinophils Absolute Basophils RBC Morphology Polychromasia Hypochromasia Poikilocytosis Basophilic Stippling Anisocytosis Microcytosis Macrocytosis Spherocytes Tear Drop Cells Ovalocytes Stomatocytes [place] Bodies [place] Cells/Echinocytes Acanthocytes (Spur) Schistocytes PT 11.9 H INR 1.2 H D-Dimer 2802 H ABG Sample Site ABG pH ABG pCO2 ABG pO2 ABG HCO3 ABG Total CO2 ABG O2 Saturation ABG Base Excess VBG pH VBG pCO2 VBG pO2 VBG HCO3 VBG Total CO2 VBG O2 Saturation VBG Base Excess VBG Lactate Oxygen Liter Flow FiO2 Sodium Potassium Chloride Carbon Dioxide Anion Gap BUN Creatinine Estimated GFR/1.73 m2 Glucose Calcium Phosphorus Magnesium Ferritin Total Bilirubin Conjugated Bilirubin AST ALT Alkaline Phosphatase Ammonia Creatine Kinase Troponin I C-Reactive Protein NT-Pro-B Natriuret Pep Total Protein Albumin Lipase Vitamin B12 25-OH Vitamin D Total Folate TSH Prolactin Pending Serum HCG, Qual Urine Color Yellow Urine Clarity Clear Urine pH 6.0 Ur Specific [place] 1.025 Urine Protein Negative Urine Ketones Negative Urine Blood Negative Urine Nitrite Negative Urine Bilirubin Negative Urine Urobilinogen 1.0 H Ur Leukocyte Esterase Negative Urine Glucose Negative Urine Opiates Screen Urine Methadone Screen Acetaminophen Ur Barbiturates Screen Ur Tricyclics Screen Ur Amphetamines Screen U Benzodiazepines Scrn Urine Cocaine Screen Ur THC Screen Ethyl Alcohol COVID-19 Source SARS-CoV-2 (PCR) Hep Bs Antigen Hep Bs Antibody Hep Bs Antibody, Quant Hep B Core Total Ab Hepatitis C Antibody Influenza Type A (PCR) Influenza Type B (PCR) RSV (PCR) Add-On Test Request 08/10/21 08/10/21 08/10/21 17:00 14:50 14:50 WBC RBC Hgb Hct MCV MCH MCHC RDW Plt Count MPV Immature Gran % Neutrophils % Band Neutrophils % Lymphocytes % Atypical Lymphs % Monocytes % Eosinophils % Basophils % Metamyelocytes % Myelocytes % Promyelocytes % Other Cells % Nucleated RBC % Absolute Neutrophils Absolute Lymphocytes Absolute Monocytes Absolute Eosinophils Absolute Basophils RBC Morphology Polychromasia Hypochromasia Poikilocytosis Basophilic Stippling Anisocytosis Microcytosis Macrocytosis Spherocytes Tear Drop Cells Ovalocytes Stomatocytes [place] Bodies [place] Cells/Echinocytes Acanthocytes (Spur) Schistocytes PT INR D-Dimer ABG Sample Site ABG pH ABG pCO2 ABG pO2 ABG HCO3 ABG Total CO2 ABG O2 Saturation ABG Base Excess VBG pH VBG pCO2 VBG pO2 VBG HCO3 VBG Total CO2 VBG O2 Saturation VBG Base Excess VBG Lactate Oxygen Liter Flow FiO2 Sodium Potassium Chloride Carbon Dioxide Anion Gap BUN Creatinine Estimated GFR/1.73 m2 Glucose Calcium Phosphorus Magnesium Ferritin 1625 H Total Bilirubin Conjugated Bilirubin AST ALT Alkaline Phosphatase Ammonia < 10 L Creatine Kinase Troponin I 203 H* C-Reactive Protein < 0.05 NT-Pro-B Natriuret Pep Total Protein Albumin Lipase Vitamin B12 25-OH Vitamin D Total Folate TSH Prolactin Serum HCG, Qual Urine Color Urine Clarity Urine pH Ur Specific [place] Urine Protein Urine Ketones Urine Blood Urine Nitrite Urine Bilirubin Urine Urobilinogen Ur Leukocyte Esterase Urine Glucose Urine Opiates Screen Urine Methadone Screen Acetaminophen Ur Barbiturates Screen Ur Tricyclics Screen Ur Amphetamines Screen U Benzodiazepines Scrn Urine Cocaine Screen Ur THC Screen Ethyl Alcohol COVID-19 Source SARS-CoV-2 (PCR) Hep Bs Antigen Hep Bs Antibody Hep Bs Antibody, Quant Hep B Core Total Ab Hepatitis C Antibody Influenza Type A (PCR) Influenza Type B (PCR) RSV (PCR) Add-On Test Request 08/10/21 08/10/21 08/10/21 14:49 13:15 13:15 WBC Cancelled RBC Cancelled Hgb Cancelled Hct Cancelled MCV Cancelled MCH Cancelled MCHC Cancelled RDW Cancelled Plt Count Cancelled MPV Cancelled Immature Gran % Cancelled Neutrophils % Cancelled Band Neutrophils % Cancelled Lymphocytes % Cancelled Atypical Lymphs % Cancelled Monocytes % Cancelled Eosinophils % Cancelled Basophils % Cancelled Metamyelocytes % Cancelled Myelocytes % Cancelled Promyelocytes % Cancelled Other Cells % Cancelled Nucleated RBC % Cancelled Absolute Neutrophils Cancelled Absolute Lymphocytes Cancelled Absolute Monocytes Cancelled Absolute Eosinophils Cancelled Absolute Basophils Cancelled RBC Morphology Cancelled Polychromasia Cancelled Hypochromasia Cancelled Poikilocytosis Cancelled Basophilic Stippling Cancelled Anisocytosis Cancelled Microcytosis Cancelled Macrocytosis Cancelled Spherocytes Cancelled Tear Drop Cells Cancelled Ovalocytes Cancelled Stomatocytes Cancelled [place] Bodies Cancelled [place] Cells/Echinocytes Cancelled Acanthocytes (Spur) Cancelled Schistocytes Cancelled PT INR D-Dimer ABG Sample Site ABG pH ABG pCO2 ABG pO2 ABG HCO3 ABG Total CO2 ABG O2 Saturation ABG Base Excess VBG pH VBG pCO2 VBG pO2 VBG HCO3 VBG Total CO2 VBG O2 Saturation VBG Base Excess VBG Lactate Oxygen Liter Flow FiO2 Sodium Potassium Chloride Carbon Dioxide Anion Gap BUN Creatinine Estimated GFR/1.73 m2 Glucose Calcium Phosphorus Magnesium Ferritin Total Bilirubin Conjugated Bilirubin AST ALT Alkaline Phosphatase Ammonia Creatine Kinase 357 H Troponin I C-Reactive Protein NT-Pro-B Natriuret Pep Total Protein Albumin Lipase Vitamin B12 25-OH Vitamin D Total Folate TSH Prolactin Serum HCG, Qual Negative Urine Color Urine Clarity Urine pH Ur Specific [place] Urine Protein Urine Ketones Urine Blood Urine Nitrite Urine Bilirubin Urine Urobilinogen Ur Leukocyte Esterase Urine Glucose Urine Opiates Screen Urine Methadone Screen Acetaminophen Ur Barbiturates Screen Ur Tricyclics Screen Ur Amphetamines Screen U Benzodiazepines Scrn Urine Cocaine Screen Ur THC Screen Ethyl Alcohol COVID-19 Source SARS-CoV-2 (PCR) Hep Bs Antigen Hep Bs Antibody Hep Bs Antibody, Quant Hep B Core Total Ab Hepatitis C Antibody Influenza Type A (PCR) Influenza Type B (PCR) RSV (PCR) Add-On Test Request 08/10/21 08/10/21 08/10/21 13:15 13:15 12:20 WBC RBC Hgb Hct MCV MCH MCHC RDW Plt Count MPV Immature Gran % Neutrophils % Band Neutrophils % Lymphocytes % Atypical Lymphs % Monocytes % Eosinophils % Basophils % Metamyelocytes % Myelocytes % Promyelocytes % Other Cells % Nucleated RBC % Absolute Neutrophils Absolute Lymphocytes Absolute Monocytes Absolute Eosinophils Absolute Basophils RBC Morphology Polychromasia Hypochromasia Poikilocytosis Basophilic Stippling Anisocytosis Microcytosis Macrocytosis Spherocytes Tear Drop Cells Ovalocytes Stomatocytes [place] Bodies [place] Cells/Echinocytes Acanthocytes (Spur) Schistocytes PT INR D-Dimer ABG Sample Site ABG pH ABG pCO2 ABG pO2 ABG HCO3 ABG Total CO2 ABG O2 Saturation ABG Base Excess VBG pH 7.42 H VBG pCO2 37 L VBG pO2 65 VBG HCO3 24 VBG Total CO2 22 L VBG O2 Saturation 90 VBG Base Excess -1 VBG Lactate Oxygen Liter Flow FiO2 Sodium Potassium Chloride Carbon Dioxide Anion Gap BUN Creatinine Estimated GFR/1.73 m2 Glucose Calcium Phosphorus Magnesium Ferritin Total Bilirubin Conjugated Bilirubin AST ALT Alkaline Phosphatase Ammonia Creatine Kinase Troponin I C-Reactive Protein NT-Pro-B Natriuret Pep Total Protein Albumin Lipase 211 Vitamin B12 25-OH Vitamin D Total Folate TSH Prolactin Serum HCG, Qual Urine Color Urine Clarity Urine pH Ur Specific [place] Urine Protein Urine Ketones Urine Blood Urine Nitrite Urine Bilirubin Urine Urobilinogen Ur Leukocyte Esterase Urine Glucose Urine Opiates Screen Urine Methadone Screen Acetaminophen Ur Barbiturates Screen Ur Tricyclics Screen Ur Amphetamines Screen U Benzodiazepines Scrn Urine Cocaine Screen Ur THC Screen Ethyl Alcohol COVID-19 Source Nasal/Nares SARS-CoV-2 (PCR) Negative Hep Bs Antigen Hep Bs Antibody Hep Bs Antibody, Quant Hep B Core Total Ab Hepatitis C Antibody Influenza Type A (PCR) Negative Influenza Type B (PCR) Negative RSV (PCR) Negative Add-On Test Request 08/10/21 08/10/21 11:45 11:45 WBC 3.89 L RBC 3.73 L Hgb 12.5 Hct 37.6 MCV 100.8 H MCH 33.5 H MCHC 33.2 RDW 15.8 H Plt Count 87 L MPV 10.5 Immature Gran % 0.8 Neutrophils % 55.4 Band Neutrophils % Lymphocytes % 28.8 Atypical Lymphs % Monocytes % 12.1 Eosinophils % 0.3 Basophils % 2.6 Metamyelocytes % Myelocytes % Promyelocytes % Other Cells % Nucleated RBC % 0 Absolute Neutrophils 2.16 Absolute Lymphocytes 1.12 L Absolute Monocytes 0.47 Absolute Eosinophils 0.01 Absolute Basophils 0.10 RBC Morphology Normal Polychromasia Hypochromasia Poikilocytosis Basophilic Stippling Anisocytosis Microcytosis Macrocytosis Spherocytes Tear Drop Cells Ovalocytes Stomatocytes [place] Bodies [place] Cells/Echinocytes Acanthocytes (Spur) Schistocytes PT INR D-Dimer ABG Sample Site ABG pH ABG pCO2 ABG pO2 ABG HCO3 ABG Total CO2 ABG O2 Saturation ABG Base Excess VBG pH VBG pCO2 VBG pO2 VBG HCO3 VBG Total CO2 VBG O2 Saturation VBG Base Excess VBG Lactate Oxygen Liter Flow FiO2 Sodium 140 Potassium 3.3 L Chloride 100 Carbon Dioxide 24.5 Anion Gap 15.5 H BUN 3 L Creatinine 0.8 Estimated GFR/1.73 m2 >= 60.00 Glucose 137 H Calcium 8.0 L Phosphorus 5.1 H Magnesium 1.5 L Ferritin Total Bilirubin 1.4 H Conjugated Bilirubin AST 491 H ALT 131 H Alkaline Phosphatase 200 H Ammonia Creatine Kinase Troponin I 231 H* C-Reactive Protein NT-Pro-B Natriuret Pep Total Protein 7.3 Albumin 3.3 L Lipase Vitamin B12 25-OH Vitamin D Total Folate TSH Prolactin Serum HCG, Qual Urine Color Urine Clarity Urine pH Ur Specific [place] Urine Protein Urine Ketones Urine Blood Urine Nitrite Urine Bilirubin Urine Urobilinogen Ur Leukocyte Esterase Urine Glucose Urine Opiates Screen Urine Methadone Screen Acetaminophen Ur Barbiturates Screen Ur Tricyclics Screen Ur Amphetamines Screen U Benzodiazepines Scrn Urine Cocaine Screen Ur THC Screen Ethyl Alcohol 447.8 H COVID-19 Source SARS-CoV-2 (PCR) Hep Bs Antigen Hep Bs Antibody Hep Bs Antibody, Quant Hep B Core Total Ab Hepatitis C Antibody Influenza Type A (PCR) Influenza Type B (PCR) RSV (PCR) Add-On Test Request CT chest/abdomen/pelvis: 1. Infiltrates along the posterior dependent portions of the lungs likely reflecting atelectasis secondary to the low lung volumes and poor inspiration. No focal consolidating infiltrates. 2. Mild inflammatory stranding seen around the ascending colon. Areas throughout the colon which show decreased attenuation in the submucosa. Inflammatory bowel disease may have this appearance. Please correlate clinically. 3. Hepatomegaly and hepatic steatosis. Echo : Left Ventricle : The left ventricle is normal size. The left ventricular ejection fraction is within the normal range. There is normal left ventricular wall thickness. There is normal LV segmental wall motion. LVEF is 58%. Right Ventricle : Right ventricle is grossly normal in size. Right ventricular systolic function is grossly normal. The RVSP is 18.3 mmHg. Atria : The left atrium size is normal. The right atrium size is normal. Mitral Valve : The mitral valve is normal in structure. Mild mitral regurgitation. No evidence of mitral valve stenosis. Great Vessels : The aortic root is normal in size. The ascending aorta is normal in size. Aortic arch is normal in caliber. IVC is normal in size and collapses >50% with inspiration. See remainder of study for further details. CT Head: . No acute intracranial process. CXR #1: 1. New left upper lobe infiltrate suspicious for pneumonia. 2. Tip of the endotracheal tube is at the level of the clavicle 4.8 cm from the gil. 3. The enteric tube is coiled in the stomach. CXR #2: pending ON LICENSE OF [facility] All Active Problems (Updated 08/11/21 @ 12:52 by Dayna Camejo MD) Respiratory failure requiring intubation (Acute) Left upper lobe pneumonia (Acute) Ventricular fibrillation (Acute) V-tach (Chronic) Exposure to COVID-19 virus (Acute) Alcoholic hepatitis (Acute) Lactic acidosis (Acute) Pancytopenia (Acute) Cardiac arrest (Acute) Elevated troponin (Acute) Discharge planning issues (Acute) DVT prophylaxis (Acute) Alcohol abuse (Chronic) Transaminitis (Acute) Person under investigation for COVID-19 (Acute) Alcohol withdrawal (Acute) Colitis with rectal bleeding (Acute) Medical History Anxiety Panic disorder Surgical History S/P appendectomy Family History Other Heart disease Social History Smoking/Tobacco Use Status: Never Smoking risk assessment performed?: Yes Alcohol Intake: never Counseling given: Yes Counseling provided: provider counseling Drug use: Never Substance use type: does not use Do you feel safe at home: Yes Do you feel safe in your relationship?: Yes
[2021-08-11] MEDS: PIPERACILLIN/TAZO 3.375 GM in Normal Saline 50 ML IVPB (12:10)
[2021-08-11 12:13] LABS: TSH (W/Ref FT4) 8.69 uIU/mL (0.36-3.74)
[2021-08-11] MEDS: dexmedeTOMidine IN 0.9 % NACL 400 MCG/100 ML BTL 12.075 MCG IVPB (12:27)
[2021-08-11] MEDS: Pantoprazole 40 MG VIAL IVP (12:32)
[2021-08-11] MEDS: chlordiazePOXIDE 25 MG CAP NG (12:37)
[2021-08-11 12:38] LABS: FREE T4 0.73 ng/dL (0.76-1.46)
[2021-08-11 12:39] LABS: Magnesium 3.1 mg/dL (1.8-2.4)
--- NOTE | 2021-08-11 12:42 | RESPIRATORY ---
tube advancement aprox 2cm per Dr Strickland request.
[2021-08-11 12:50] LABS: Troponin I 214 ng/L (<or=60)
[2021-08-11] MEDS: PROPOFOL 1,000 MG/100 ML BTL 24.15 MG IVPB (13:30)
[2021-08-11] MEDS: POTASSIUM CHLORIDE 20 MEQ/100 ML BAG 50 MEQ IVPB (14:03)
--- NOTE | 2021-08-11 14:23 | CHAPLAIN ---
Two code blues were called on Naomi this morning. She is being transferred to [facility] by emergency ground transportation. Pharmacist In Charge Shanta Gonzalez called Naomi's friend [place], the only person listed on her HIPPA paperwork, and left a message on his cell phone. I brought a prayer shawl in to got to [facility] with Naomi.
--- NOTE | 2021-08-11 18:25 | NUR.NOTE ---
Shock for v-fib delivered at 08:53 and last shock at 200 joules at 08:55 , ROSC at rhythm check at 08:59
[2021-08-11] MEDS: Normal Saline Flush 10 ML SYR IVP (21:28)
[2021-08-14 01:33] LABS: Vitamin D 25 Total 13.7 ng/mL (30-100)
[2021-08-14 11:52] LABS: HBs Antibody, Qual Positive (See Note); HBs Antibody, Quant 25.7 mIU/mL (See Note); Hepatitis B Core Antibody Negative (Negative); Hepatitis B surface Ag Negative (Negative); Hepatitis C Ab w Rflx HCV PCR Negative (Negative)
[2021-08-14 13:30] VITALS: BP 89/52
== END 2021-08-11 14:40 | DRG 208 ==
LOC: ER 11:42 → ICU 16:29
PROVIDERS: Admitting Provider Internal Medicine; Emergency Provider Physician Assistant; Visit Provider Internal Medicine
DX: J18.9 Pneumonia, unspecified organism (principal); I49.01 Ventricular fibrillation; I46.2 Cardiac arrest due to underlying cardiac condition; J96.00 Acute respiratory failure, unspecified whether with hypoxia or hypercapnia; F10.139 Alcohol abuse with withdrawal, unspecified; D61.818 Other pancytopenia; E87.2 Acidosis; Z20.822 Contact with and (suspected) exposure to COVID-19; E87.6 Hypokalemia; K70.10 Alcoholic hepatitis without ascites; R74.8 Abnormal levels of other serum enzymes; E83.42 Hypomagnesemia; D69.6 Thrombocytopenia, unspecified
CPT/HCPCS: 31500; 92960; 36415; 36591; 71045; 71250; 80048; 80053; 80076; 80307; 82306; 82550; 82805; 83690; 86704; 86706; 86803; 87340; 87635; 87637; 93005; 93308; 96361; 96365; 96366; 96367; 99291; 99292; 36600; 70450; 74176; 80320; 80329; 81003; 82140; 82607; 82728; 82746; 83605; 83735; 83880; 84100; 84146; 84439; 84443; 84484; 84703; 85014; 85018; 85025; 85379; 85610; 86140; 93010; 93306; 94002; J0610; J2001; J2060; J2250; J2543; J3010; J3475; J3480; J3490

== ENCOUNTER 2024-09-30 02:20 | Outpatient (CLI) | payer BC, SELFPAY ==
--- NOTE | 2024-09-30 07:30 | DI.MRI_ITS ---
Exam(s) MR PELVIS WO EXAM: MR PELVIS WO CLINICAL HISTORY: Pain down the left posterior thigh,had LMRI,lumbosacral radiculopathy. TECHNIQUE: Multiplanar multisequence MRI of Pelvis was performed COMPARISON: MR MR LS SPINE WO CONTRAST from 08/31/2024 FINDINGS: Bones: There is no fracture or contusion pattern. No significant joint effusion or labral injury is present. No bone marrow edema is seen. The SI joints and symphysis pubis are well maintained. No evidence of mass or abnormal signal along the course of the sciatic nerves. No nerve root sheath cysts identified. Musculotendinous structures: Musculotendinous structures demonstrate no abnormality. No muscle atro phy or edema. Intrapelvic structures demonstrate no significant abnormality. There is a bicornuate uterus. There is also a small uterine fibroid. IMPRESSION: Normal MRI examination the pelvis. No abnormality seen involving the sciatic nerves. DATA REPOSITORY:
== END 2024-09-30 02:40 ==
LOC: DI 02:20
PROVIDERS: PCP Family Medicine; Visit Provider Preventive Medicine Occupational Medicine
DX: M54.17 Radiculopathy, lumbosacral region (principal)
CPT/HCPCS: 72195

== ENCOUNTER 2024-10-07 08:29 | Outpatient (CLI) | payer BC, SELFPAY ==
--- NOTE | 2024-10-07 06:00 | DI.RAD_ITS ---
Exam(s) XR PAIN CLINIC CERVICAL SP 2V EXAM: XR PAIN CLINIC CERVICAL SP 2V CLINICAL HISTORY: DX: Cervical Spondylosis. TECHNIQUE: Fluoroscopy was provided for the referring physician for guidance with performing pain cl inic injection procedure. COMPARISON: No exams were available for comparison FINDINGS: Please see procedure note for details. Fluoro time: 35.0 seconds RADIATION DOSE DELIVERED: Isaurar=1.69 mGy
[2024-10-07 08:36] VITALS: BP 111/67; PULSE 77; RESP 20; TEMP 36.6; O2SAT 99
[2024-10-07 09:03] VITALS: PULSE 72; PULSE 73; O2SAT 100
[2024-10-07 09:04] VITALS: BP 117/69; PULSE 70; PULSE 75; RESP 16
[2024-10-07 09:10] VITALS: PULSE 78; RESP 17
[2024-10-07 09:15] VITALS: BP 106/77; PULSE 79; PULSE 84; RESP 19
[2024-10-07] MEDS: Nerve Block Tray 1 EACH MC (09:26)
[2024-10-07] MEDS: Omnipaque 240 MG/ML 50 ML BTL IJ (09:26)
[2024-10-07] MEDS: Bupivacaine 0.5% Pres-Free 10 ML VIAL IJ (09:27)
--- NOTE | 2024-10-07 10:40 | PDOC.PAIN ---
Date of service: 10/07/24 Time of Service: 09:30 Pain Managment Procedure Note Procedure Note Procedure Note: PROCEDURE NOTE LEFT SIDED CERVICAL MEDIAL BRANCH BLOCKS Date of Service: October 07, 2024 Patient: Naomi Yadav Provider: Lauri Castaneda DO, MPH Naomi Yadav has been [facility] to the [facility] for cervical medial branch blocks. Pre-operative diagnosis: Cervical Spondylosis without Myelopathy ICD-10 M47.812 Post-operative diagnosis: Same Pre-procedure pain: VAS= 7/10 COMMENTS: I previously evaluated her in the office. Her symptoms are unchanged. Georgettewas interviewed and the medical records were reviewed. There were no medical, pharmacologic, radiographic or other structural contraindications to attempting fluoroscopically guided local anesthetic cervical medial branch blocks. Risks and potential side effects were discussed. I also discussed the potential benefit(s) of the procedure with Naomi, and voiced concerns were addressed. After Naomi was completely informed about the procedure, the printed consent form was signed. A standard time-out procedure was performed. Naomi was placed in the lateral decubitus position on the fluoroscopy table with the effected side up. Automated blood pressure cuff and pulse oximeter were applied. The skin entry points for approaching the anatomic target points of the segmental medial branches of Left C3,C4,C5 were identified with fluoroscopy and marked. The skin at the target site area was thoroughly prepared with Chlorhexadine. The skin was then draped. Next, a 25 gauge 3.5 spinal needle was placed under fluoroscopic guidance down on to the target point (the articular pillar) for each respective segmental medial branch. Position was confirmed in A/P and lateral views. Aspiration revealed no blood or clear fluid. Next, 0.25ml of omnipaque 240 was injected at each level. No contrast following a vascular or neural pattern was visualized under continuous fluoroscopy. Next, 0.25 ml of preservative-free 0.5% bupivicaine was injected at each level. (49 mls of Omnipaque was wasted) There was no unusual discomfort expressed by Naomi. The needles were withdrawn without difficulty. Naomi was observed and was without hemodynamic, neurologic, or allergic reactions.? Fluoroscopic images were digitally archived. Naomi's vital signs were stable throughout the procedure and were as recorded in the docflowsheet by the nursing staff. Provacative testing using the Modified Noe's facet loading test Left side Directly before the block VAS (0-10) = 7/10 Five minutes after the block VAS (0-10) = 0/10 Percentage relief obtained with this diagnostic block 100% Any improved physical functioning directly after the blocks? Able to move her neck to the left without pain. Follow up plans and appointments were discussed with Naomi. Naomi was instructed to keep careful note of how the usual pain was modified by these injections. Specifically, to keep a pain diary for the next 4 hours using a numeric pain scale of 0-10 and report these results. Post procedure instruction was given as documented in the nursing documentation and having met discharge criteria, the patient was [facility] from the [facility]. Based on the medial branches blocked today, if Naomi has adequate relief and we are able to proceed to radiofrequency ablation, the treatment should result in the denervation of the Left C3-C4 and C4-C5 facet joints. We would expect to denervate a total of 2 facets during the radiofrequency ablation. COMMENTS: No apparent complications. Post-procedure pain: VAS= 0/10 Naomi will call back with 0-4 hour post-procedure pain scores. SHE CONTINUED TO HAVE RIGHT-SIDED NECK PAIN AFTER THE PROCEDURE. I personally performed the entire procedure. LAURI CASTANEDA DO, MPH ABPM&R-subspecialty board certification in Pain Medicine [facility] Coding Conscious Sedation used for procedure: No CPT Codes: CMBB (includes Fluoro) Cervical/Thoracic, 2nd lvl - 20736 ([id number] ~G) CMBB (includes Fluoro) Cervical/Thoracic, single lvl - 76174 ([id number] ~G) Additional Codes: Date of Service (04815) Date of service: 10/07/24
== END 2024-10-07 08:30 | disposition home or self-care (01) ==
PROVIDERS: PCP Family Medicine; Visit Provider Preventive Medicine Occupational Medicine
DX: M47.812 Spondylosis without myelopathy or radiculopathy, cervical region (principal)
CPT/HCPCS: 64490; 64491; 72040; J0665; Q9967

== ENCOUNTER 2024-11-12 09:40 | Outpatient (CLI) | payer BC, SELFPAY ==
--- NOTE | 2024-11-12 06:00 | DI.RAD_ITS ---
Exam(s) XR PAIN CLINIC CERVICAL SP 2V EXAM: XR PAIN CLINIC CERVICAL SP 2V CLINICAL HISTORY: DX: Cervical Spondylosis TECHNIQUE: 2D and realtime digital imaging was performed. CONTRAST MATERIAL: Refer to procedure report. COMPARISON: No exams were available for comparison FINDINGS: Fluoroscopy was provided for Dr. Castaneda during the performance of a cervical medial branch block. Ple ase refer to the procedure report for complete details. Ka,r=2.16 mGy IMPRESSION: RADIATION DOSE DELIVERED: 0.0 0.0 0
[2024-11-12 10:05] VITALS: BP 98/69; PULSE 72; RESP 18; TEMP 36.6; O2SAT 99
[2024-11-12 10:39] VITALS: BP 92/48; PULSE 69; PULSE 71; RESP 19
[2024-11-12 10:40] VITALS: PULSE 72; PULSE 73; RESP 14; O2SAT 100
[2024-11-12 10:45] VITALS: BP 91/48; PULSE 69; PULSE 70; RESP 18
--- NOTE | 2024-11-12 10:50 | PDOC.PAIN_ITS ---
Date of service: 11/12/24 Time of Service: 10:50 Pain Managment Procedure Note Procedure Note Procedure Note: PROCEDURE NOTE LEFT SIDED CERVICAL MEDIAL BRANCH BLOCKS Date of Service: November 12, 2024 Patient: Naomi Yadav Provider: Lauri Castaneda DO, MPH Naomi Yadav has been referred to the [facility] for cervical medial branch blocks. Pre-operative diagnosis: Cervical Spondylosis without Myelopathy ICD-10 M47.812 Post-operative diagnosis: Same Pre-procedure pain: VAS= 7/10 COMMENTS: She did very well with the first CMBB at Left C3-C5. Naomi?was interviewed and the medical records were reviewed. There were no medical, pharmacologic, radiographic or other structural contraindications to attempting fluoroscopically guided local anesthetic cervical medial branch blocks. Risks and potential side effects were discussed. I also discussed the potential benefit(s) of the procedure with Naomi, and voiced concerns were addressed. After Naomi was completely informed about the procedure, the printed consent form was signed. A standard time-out procedure was performed. Naomi was placed in the lateral decubitus position on the fluoroscopy table with the effected side up. Automated blood pressure cuff and pulse oximeter were applied. The skin entry points for approaching the anatomic target points of th e segmental medial branches of Left C3,C4,C5 were identified with fluoroscopy and marked. The skin at the target site area was thoroughly prepared with Chlorhexadine. The skin was then draped. Next, a 25 gauge 3.5 spinal needle was placed under fluoroscopic guidance down on to the target point (the articular pillar) for each respective segmental medial branch. Position was confirmed in A/P and lateral views. Aspiration revealed no blood or clear fluid. Next, 0.25ml of omnipaque 240 was injected at each level. No contrast following a vascular or neural pattern was visualized under continuous fluoroscopy. Next, 0.25 ml of preservative-free 0.5% bupivicaine was injected at each level. (49 mls of Omnipaque was wasted) There was no unusual discomfort expressed by Naomi. The needles were withdrawn without difficulty. Naomi was observed and was without hemodynamic, neurologic, or allergic reactions.? Fluoroscopic images were digitally archived. Naomi's vital signs were stable throughout the procedure and were as recorded in the docflowsheet by the nursing staff. Provacative testing using the Modified Noe's facet loading test Left side Directly before the block VAS (0-10) = 7/10 Five minutes after the block VAS (0-10) = 0/10 Percentage relief obtained with this diagnostic block 100% Any improved physical functioning directly after the blocks? Able to move her neck without much problem. Follow up plans and appointments were discussed with Naomi. Naomi was instructed to keep careful note of how the usual pain was modified by these injections. Specifically, to keep a pain diary for the next 4 hours using a numeric pain scale of 0-10 and report these results. Post procedure instruction was given as documented in the nursing documentation and having met discharge criteria, the patient was discharged from the [facility]. Based on the medial branches blocked today, if Naomi has adequate relief and we are able to proceed to radiofrequency ablation, the treatment should result in the denervation of the Left C3-C4 and C4-C5 facet joints. We would expect to denervate a total of 2 facets during the radiofrequency ablation. COMMENTS: No apparent complications. Post-procedure pain: VAS= 0/10 Naomi will call back with 0-4 hour post-procedure pain scores. I personally performed the entire procedure. LAURI CASTANEDA DO, MPH ABPM&R-subspecialty board certification in Pain Medicine [facility] Coding Conscious Sedation used for procedure: No CPT Codes: CMBB (includes Fluoro) Cervical/Thoracic, 2nd lvl - 64681 ([id number] ~G) CMBB (includes Fluoro) Cervical/Thoracic, single lvl - 58201 ([id number] ~G) Additional Codes: Date of Service (36435) Date of service: 11/12/24
[2024-11-12] MEDS: Nerve Block Tray 1 EACH MC (10:57)
[2024-11-12] MEDS: Omnipaque 240 MG/ML 50 ML BTL IJ (10:57)
[2024-11-12] MEDS: Bupivacaine 0.5% Pres-Free 10 ML VIAL IJ (10:57)
== END 2024-11-12 09:41 | disposition home or self-care (01) ==
LOC: PC 09:40
PROVIDERS: PCP Family Medicine; Visit Provider Preventive Medicine Occupational Medicine
DX: M47.812 Spondylosis without myelopathy or radiculopathy, cervical region (principal)
CPT/HCPCS: 64490; 64491; 72040; J0665; Q9967

== ENCOUNTER 2024-12-17 12:03 | Outpatient (CLI) | payer BC, SELFPAY ==
[2024-12-17] VITALS (19 sets, daily range): BP systolic 109–141; BP diastolic 59–85; PULSE 62–116; RESP 9–27; TEMP 36.6; O2SAT 99–100
--- NOTE | 2024-12-17 06:00 | DI.RAD_ITS ---
Exam(s) XR PAIN CLINIC CERVICAL SP 2V EXAM: XR PAIN CLINIC CERVICAL SP 2V CLINICAL HISTORY: DX: Cervical Spondylosis TECHNIQUE: 2D and realtime digital imaging was performed. CONTRAST MATERIAL: Refer to procedure report. COMPARISON: No exams were available for comparison FINDINGS: Fluoroscopy was provided for Dr. Castaneda during the performance of a left cervical radiofrequency ablat ion. Please refer to the procedure report for complete details. Ka,r=2.47 mGy IMPRESSION: RADIATION DOSE DELIVERED: 0.0 0.0 0
[2024-12-17] MEDS: Midazolam 2 MG/2 ML VIAL IVP (13:15)
[2024-12-17] MEDS: Lactated Ringers 500 ML 80 ML IV (13:31)
[2024-12-17] MEDS: Bupivacaine 0.5% Pres-Free 10 ML VIAL IJ (14:04)
[2024-12-17] MEDS: Lidocaine 2% Multi-Dose 20 ML VIAL IJ (14:05)
[2024-12-17] MEDS: Dexamethasone Sod. Phos./Pres-Free 10 MG/ML VIAL IJ (14:05)
[2024-12-17] MEDS: Nerve Block Tray 1 EACH MC (14:18)
--- NOTE | 2024-12-17 14:22 | PDOC.PAIN_ITS ---
Date of service: 12/17/24 Time of Service: 14:22 Pain Managment Procedure Note Procedure Note Procedure Note: PROCEDURE NOTE LEFT Cervical Radiofrequency Ablation Date of Service: December 17, 2024 Patient:? Naomi Yadav? Provider:? Lauri Castaneda DO, MPH Naomi Yadav [facility] LEFT Cervical Radiofrequency Ablation with the [employer] Machine.? Pre Operative Diagnosis: Cervical Spondylosis without Myelopathy ICD-10 M47.812 Post Operative Diagnosis: Same Pre procedure pain; VAS= 8/10 Comments: She did very well with the CMBBs x 2 PROCEDURE: 1. Left C3-C4 facet joint radiofrequency denervation 2. Left C4-C5 facet joint radiofrequency denervation Naomi?was interviewed and the medical record was reviewed.? There were no medical, pharmacologic, radiographic or other structural contraindications to attempting fluoroscopically guided LEFT Cervical Radiofrequency Ablation.?Risks and expected side effects as well as potential benefit of the procedure were reviewed with Naomi, and the patient's voiced concerns were addressed.? The printed consent form was signed.? Standard time-out procedure was performed. Naomi was brought to the procedure suite and placed on the exam table in a comfortable lateral recumbent position. A grounding pad was placed on the left abdomen. The place for the needle placement was obtained by manual palpation as well as radiographic confirmation. The sterile field was prepped by chlorhexidine and sterile drapes. Local anesthesia, both superficial and deep was provided by local infiltration of 3 ml Lidocaine 1%. Using fluoroscopic guidance, A 17g 50 mm radiofrequency introducer needle with a 2 mm active tip was placed overlying the Left C3 cervical vertebra from the lateral approach and was advanced until bony contact was felt with the articular pillar. Attempted aspiration revealed no blood or cerebrospinal fluid. Motor testing was then performed with 2.0 volts and no upper extremity motor stimulation was observed. 1 ml of 2% Lidocaine was injected through the RF needle. A radiofrequency lesion of the Left medial branch of C3 was then performed at 80 degrees Celsius for 2 minutes and 30 seconds. There was no unusual discomfort expressed by Naomi. The needles were withdrawn without difficulty. Naomi was observed and was without hemodynamic, neurologic, or allergic reactions. Fluoroscopic images were digitally archived. The same procedure was repeated for Left C4 and C5 medial branches. POST PROCEDURE EVALUATION: IMPRESSION: 1. Medication given is documented in the MAR 2. Follow up plan: Naomi to contact [facility] as needed. This procedure may be repeated if the patient achieves at least 50% improvement in pain and/or function for at least 6 months. 3. Estimated Blood Loss: <5ml 4. Fluoroscopy time: Documented in the EMR Follow up plans and appointments were discussed with Naomi. Post procedure instruction was given as documented in nursing documentation and having met discharge criteria, Naomi was [facility] from the [facility]. This advanced procedure uses cooled radiofrequency energy to safely target the sensory nerves responsible for sending pain signals.1 A radiofrequency generator transmits a small current of Radiofrequency energy through an insulated electrode, or probe, placed within tissue. Ionic heating, produced by the friction of charged molecules, thermally deactivates the nerves responsible for sending pain signals to the brain. Radiofrequency energy heats and cools the tissue at the site of pain. Unlike other Radiofrequency procedures, Coolief circulates water through the device while heating nervous tissue to create a larger treatment area, increasing the opportunity to help with pain. This combination targets the pain- transmitting nerves without excessive heating, leading to pain relief. COMMENTS: No apparent complications. Post-procedure pain: VAS= 3/10. I personally performed this entire procedure. LAURI CASTANEDA DO, MPH ABPM&R - Subspecialty board certification in Pain Medicine [facility] Coding Conscious Sedation used for procedure: No CPT Codes: Single Facet Joint, Cervical/Thoracic cool - 97848F (58235F80~G) Single Facet Joint, Cervical/Thoracic cool each add'l - 71671E (51544J30~G) LT - LEFT SIDE Additional Codes: Date of Service (18207) Date of service: 12/17/24
== END 2024-12-17 12:04 | disposition home or self-care (01) ==
LOC: PC 12:04
PROVIDERS: PCP Family Medicine; Visit Provider Preventive Medicine Occupational Medicine
DX: M47.812 Spondylosis without myelopathy or radiculopathy, cervical region (principal)
CPT/HCPCS: 64633; 64634; 72040; J0665; J1100; J2003; J2250

== ENCOUNTER 2025-02-03 12:27 | Outpatient (CLI) | payer MEDICAID, SELFPAY ==
[2025-02-03 12:42] VITALS: BP 117/76; PULSE 72; RESP 18; TEMP 37.2; O2SAT 98
[2025-02-03 12:56] VITALS: PULSE 67; O2SAT 97
[2025-02-03 12:58] VITALS: BP 113/66; PULSE 70; RESP 14; O2SAT 98
[2025-02-03 13:00] VITALS: PULSE 67; RESP 19; O2SAT 98
[2025-02-03 13:01] VITALS: BP 108/65; PULSE 69; RESP 18; O2SAT 98
--- NOTE | 2025-02-03 13:12 | DI.RAD_ITS ---
Exam(s) XR PAIN CLINIC CERVICAL SP 2V EXAM: XR PAIN CLINIC CERVICAL SP 2V CLINICAL HISTORY: Dx: Cervical Spondylosis. TECHNIQUE: Fluoroscopy was provided for the referring physician for guidance with performing pain clinic injection procedure. COMPARISON: No exams were available for comparison FINDINGS: Please see procedure note for details. Fluoro time: 36.4 seconds RADIATION DOSE DELIVERED: griffin Delarosa=1.97 mGy
[2025-02-03 13:13] VITALS: BP 126/78; PULSE 79
--- NOTE | 2025-02-03 13:14 | PDOC.PAIN_ITS ---
Date of service: 02/03/25 Time of Service: 13:14 Pain Managment Procedure Note Procedure Note Procedure Note: PROCEDURE NOTE RIGHT SIDED CERVICAL MEDIAL BRANCH BLOCKS Date of Service: February 03, 2025 Patient: Naomi Yadav Provider: Lauri Castaneda DO, MPH Naomi Yadav has been [facility] for cervical medial branch blocks. Pre-operative diagnosis: Cervical Spondylosis without Myelopathy ICD-10 M47.812 Post-operative diagnosis: Same Pre-procedure pain: VAS= 7/10 COMMENTS: I previously evaluated her in the office. Georgette was interviewed and the medical records were reviewed. There were no medical, pharmacologic, radiographic or other structural contraindications to attempting fluoroscopically guided local anesthetic cervical medial branch blocks. Risks and potential side effects were discussed. I also discussed the potential benefit(s) of the procedure with Naomi, and voiced concerns were addressed. After Naomi was completely informed about the procedure, the printed consent form was signed. A standard time-out procedure was performed. Naomi was placed in the lateral decubitus position on the fluoroscopy table with the effected side up. Automated blood pressure cuff and pulse oximeter were applied. The skin entry points for approaching the anatomic target points of the segmental medial branches of Right C3,C4,C5 were identified with fluoroscopy and marked. The skin at the target site area was thoroughly prepared with Chlorhexadine. The skin was then draped. Next, a 25 gauge 3.5 spinal needle was placed under fluoroscopic guidance down on to the target point (the articular pillar) for each respective segmental medial branch. Position was confirmed in A/P and lateral views. Aspiration revealed no blood or clear fluid. Next, 0.25ml of omnipaque 240 was injected at each level. No contrast following a vascular or neural pattern was visualized under continuous fluoroscopy. Next, 0.25 ml of preservative-free 0.5% bupivicaine was injected at each level. (49 mls of Omnipaque was wasted) There was no unusual discomfort expressed by Naomi. The needles were withdrawn without difficulty. Naomi was observed and was without hemodynamic, neurologic, or allergic reactions.? Fluoroscopic images were digitally archived. Naomi's vital signs were stable throughout the procedure and were as recorded in the doc flowsheet by the nursing staff. Provacative testing using the Modified Noe's facet loading test- Right side Directly before the block VAS (0-10) = 5/10 5 minutes after the block VAS (0-10) = 2/10 Percentage relief obtained with this diagnostic block 80% Any improved physical functioning directly after the blocks? Able to move her neck much better. Follow up plans and appointments were discussed with Naomi. Naomi was instructed to keep careful note of how the usual pain was modified by these injections. Specifically, to keep a pain diary for the next 4 hours using a numeric pain scale of 0-10 and report these results. Post procedure instruction was given as documented in the nursing documentation and having met discharge criteria, the patient was [facility] from the [facility]. Based on the medial branches blocked today, if Naomi has adequate relief and we are able to proceed to radiofrequency ablation, the treatment should result in the denervation of the Right C3-C4 and C4-C5 facet joints. We would expect to denervate a total of 2 facets during the radiofrequency ablation. COMMENTS: No apparent complications. Post-procedure pain: VAS= 2/10. Naomi will call back with 0-4 hour post-procedure pain scores. I personally performed the entire procedure. LAURI CASTANEDA DO, MPH ABPM&R-subspecialty board certification in Pain Medicine [facility] Coding Conscious Sedation used for procedure: No CPT Codes: CMBB (includes Fluoro) Cervical/Thoracic, 2nd lvl - 28955 (0426057 ~G) Right CMBB (includes Fluoro) Cervical/Thoracic, single lvl - 46975 (9091915 ~G) Right Additional Codes: Date of Service (19597) Date of service: 02/03/25 Diagnoses: Cervical spondylosis without myelopathy
[2025-02-03] MEDS: Bupivacaine 0.5% Pres-Free 10 ML VIAL IJ (13:16)
[2025-02-03] MEDS: Omnipaque 240 MG/ML 50 ML BTL IJ (13:17)
[2025-02-03] MEDS: Nerve Block Tray 1 EACH MC (13:17)
== END 2025-02-03 12:28 | disposition home or self-care (01) ==
LOC: PC 12:29
PROVIDERS: PCP Family Medicine; Visit Provider Preventive Medicine Occupational Medicine
DX: M47.812 Spondylosis without myelopathy or radiculopathy, cervical region (principal)
CPT/HCPCS: 64490; 64491; 72040; 81025; J0665; Q9967

== ENCOUNTER 2025-03-10 13:15 | Outpatient (CLI) | payer MEDICAID, SELFPAY ==
[2025-03-10 13:32] VITALS: BP 110/79; PULSE 70; RESP 18; TEMP 36.3; O2SAT 98
[2025-03-10 13:52] VITALS: PULSE 64; RESP 24
[2025-03-10 13:53] VITALS: BP 124/76; PULSE 68; PULSE 71; RESP 18; O2SAT 100
[2025-03-10 14:00] VITALS: BP 99/63; PULSE 66; PULSE 68; RESP 18; O2SAT 100
[2025-03-10 14:01] VITALS: PULSE 67; RESP 14; O2SAT 100
--- NOTE | 2025-03-10 14:08 | DI.RAD_ITS ---
Exam(s) XR PAIN CLINIC CERVICAL SP 2V EXAM: XR PAIN CLINIC CERVICAL SP 2V CLINICAL HISTORY: Dx: Cervical Spondylosis TECHNIQUE: 2D and realtime digital imaging was performed. Radiologist not present. CONTRAST MATERIAL: None. COMPARISON: No exams were available for comparison FINDINGS: Fluoroscopy was provided for pain management therapy. Cervical level medial branch blocks Please refer to procedure report or details. Radiation Exposure Index: Ka,r=1.04 mGy IMPRESSION: As above. RADIATION DOSE DELIVERED:
[2025-03-10] MEDS: Nerve Block Tray 1 EACH MC (14:10)
[2025-03-10] MEDS: Bupivacaine 0.5% Pres-Free 10 ML VIAL IJ (14:10)
[2025-03-10] MEDS: Omnipaque 240 MG/ML 50 ML BTL IJ (14:10)
--- NOTE | 2025-03-10 14:13 | PDOC.PAIN ---
Date of service: 03/10/25 Time of Service: 14:13 Pain Managment Procedure Note Procedure Note Procedure Note: PROCEDURE NOTE RIGHT SIDED CERVICAL MEDIAL BRANCH BLOCKS Date of Service: March 10, 2025 Patient: Naomi Yadav Provider: Lauri Castaneda DO, MPH Naomi Yadav has been referred to the [facility] for cervical medial branch blocks. Pre-operative diagnosis: Cervical Spondylosis without Myelopathy ICD-10 M47.812 Post-operative diagnosis: Same Pre-procedure pain: VAS= 6/10 COMMENTS: She did well with the CMBB at right C3-5 #1. Naomi? was interviewed and the medical records were reviewed. There were no medical, pharmacologic, radiographic or other structural contraindications to attempting fluoroscopically guided local anesthetic cervical medial branch blocks. Risks and potential side effects were discussed. I also discussed the potential benefit(s) of the procedure with Naomi, and voiced concerns were addressed. After Naomi was completely informed about the procedure, the printed consent form was signed. A standard time-out procedure was performed. Naomi was placed in the lateral decubitus position on the fluoroscopy table with the effected side up. Automated blood pressure cuff and pulse oximeter were applied. The skin entry points for approaching the anatomic target points of the segmental medial branches of Right C3,C4,C5 were identified with fluoroscopy and marked. The skin at the target site area was thoroughly prepared with Chlorhexadine. The skin was then draped. Next, a 25 gauge 3.5 spinal needle was placed under fluoroscopic guidance down on to the target point (the articular pillar) for each respective segmental medial branch. Position was confirmed in A/P and lateral views. Aspiration revealed no blood or clear fluid. Next, 0.25ml of omnipaque 240 was injected at each level. No contrast following a vascular or neural pattern was visualized under continuous fluoroscopy. Next, 0.25 ml of preservative-free 0.5% bupivicaine was injected at each level. (49 mls of Omnipaque was wasted) There was no unusual discomfort expressed by Naomi. The needles were withdrawn without difficulty. Naomi was observed and was without hemodynamic, neurologic, or allergic reactions.? Fluoroscopic images were digitally archived. Naomi's vital signs were stable throughout the procedure and were as recorded in the doc flowsheet by the nursing staff. Provacative testing using the Modified Noe's facet loading test- Right side Directly before the block VAS (0-10) = 6/10 5 minutes after the block VAS (0-10) = 3/10 Percentage relief obtained with this diagnostic block 50% Any improved physical functioning directly after the blocks? Able to move her neck easier. Follow up plans and appointments were discussed with Naomi. Naomi was instructed to keep careful note of how the usual pain was modified by these injections. Specifically, to keep a pain diary for the next 4 hours using a numeric pain scale of 0-10 and report these results. Post procedure instruction was given as documented in the nursing documentation and having met discharge criteria, the patient was [facility] from the [facility]. Based on the medial branches blocked today, if Naomi has adequate relief and we are able to proceed to radiofrequency ablation, the treatment should result in the denervation of the Right C3-C4 and C4-C5 facet joints. We would expect to denervate a total of 2 facets during the radiofrequency ablation. COMMENTS: No apparent complications. Post-procedure pain: VAS= 3/10. Naomi will call back with 0-4 hour post-procedure pain scores. I personally performed the entire procedure. LAURI CASTANEDA DO, MPH ABPM&R-subspecialty board certification in Pain Medicine [facility] Coding Conscious Sedation used for procedure: No CPT Codes: CMBB (includes Fluoro) Cervical/Thoracic, 2nd lvl - 31544 (0181732 ~G) CMBB (includes Fluoro) Cervical/Thoracic, single lvl - 01990 (9929660 ~G) Additional Codes: Date of Service (48833) Date of service: 03/10/25 Diagnoses: cervical spondylosis without myelopathy
== END 2025-03-10 13:16 | disposition home or self-care (01) ==
LOC: PC 13:16
PROVIDERS: PCP Family Medicine; Visit Provider Preventive Medicine Occupational Medicine
DX: M47.812 Spondylosis without myelopathy or radiculopathy, cervical region (principal)
CPT/HCPCS: 64490; 64491; 72040; J0665; Q9967

== ENCOUNTER 2025-03-24 03:22 | Outpatient (CLI) | payer MEDICAID, SELFPAY ==
--- NOTE | 2025-03-24 | DI.US_ITS ---
Exam(s) US RENAL EXAM: US RENAL CLINICAL HISTORY: URGE AND STRESS INCONTINENCE N39.46 PRE AND POST VOID RESIDUAL. TECHNIQUE: Jiang scale imaging and color doppler were used. COMPARISON: CT CT CHEST/ABD/PEL WO from 08/10/2021 FINDINGS: Right kidney: 11.0cm Echogenicity: Normal Hydronephrosis: No Cyst or mass: No Nephrolithiasis: No Left kidney: 10.2cm Echogenicity: Normal Hydronephrosis: No Cyst or mass: No Nephrolithiasis: No Bladder:Normal. Both ureteral jets were visualized. Prevoid vol:266 cc Postvoid vol:31 cc IMPRESSION: Negative renal ultrasound. DATA REPOSITORY:
== END 2025-03-24 03:42 ==
LOC: DI 03:22
PROVIDERS: PCP Family Medicine; Visit Provider Family Medicine
DX: N39.46 Mixed incontinence (principal)
CPT/HCPCS: 76770

== ENCOUNTER 2025-04-21 13:03 | Outpatient (CLI) | payer MEDICAID, SELFPAY ==
[2025-04-21] VITALS (13 sets, daily range): BP systolic 101–147; BP diastolic 64–91; PULSE 71–100; RESP 10–20; TEMP 37; O2SAT 99–100
--- NOTE | 2025-04-21 06:00 | DI.RAD_ITS ---
Exam(s) XR PAIN CLINIC CERVICAL SP 2V EXAM: XR PAIN CLINIC CERVICAL SP 2V CLINICAL HISTORY: DX: Cervical Spondylosis TECHNIQUE: 2D and realtime digital imaging was performed. CONTRAST MATERIAL: Refer to procedure report. COMPARISON: No exams were available for comparison FINDINGS: Fluoroscopy was provided for Dr. Castaneda during the performance of a cervical radiofrequency ablation. Please refer to the procedure report for complete details. Ka,r=2.2 mGy IMPRESSION: RADIATION DOSE DELIVERED: 0.0 0.0 0
[2025-04-21] MEDS: Midazolam 2 MG/2 ML VIAL IVP (14:25)
[2025-04-21] MEDS: fentaNYL 100 MCG/2 ML VIAL IJ ×2 (14:25→14:44)
[2025-04-21] MEDS: Lactated Ringers 500 ML 30 ML IV (14:44)
[2025-04-21] MEDS: Lidocaine 2% Pres-Free 5 ML VIAL IJ (15:05)
[2025-04-21] MEDS: Dexamethasone Sod. Phos./Pres-Free 10 MG/ML VIAL IJ (15:06)
[2025-04-21] MEDS: Bupivacaine 0.5% Pres-Free 10 ML VIAL IJ (15:06)
[2025-04-21] MEDS: Nerve Block Tray 1 EACH MC (15:07)
--- NOTE | 2025-04-25 19:20 | PDOC.PAIN ---
Date of service: 04/21/25 Time of Service: 14:00 Pain Managment Procedure Note Procedure Note Procedure Note: PROCEDURE NOTE RIGHT Cervical Radiofrequency Ablation Date of Service: April 21, 2025 Patient:? Naomi Yadav? Provider:? Lauri Castaneda DO, MPH Naomi Yadav has been [facility] to the [facility] for RIGHT Cervical Radiofrequency Ablation with the [employer] Machine.? Pre Operative Diagnosis: Cervical Spondylosis without Myelopathy ICD-10 M47.812 Post Operative Diagnosis: Same Pre procedure pain; VAS= 7/10 Comments: She did very well with the CMBBs x 2 PROCEDURE: 1. Right C3-C4 facet joint radiofrequency denervation 2. Right C4-C5 facet joint radiofrequency denervation Naomi?was interviewed and the medical record was reviewed.? There were no medical, pharmacologic, radiographic or other structural contraindications to attempting fluoroscopically guided RIGHT Cervical Radiofrequency Ablation.?Risks and expected side effects as well as potential benefit of the procedure were reviewed with Noami, and the patient's voiced concerns were addressed.? The printed consent form was signed.? Standard time-out procedure was performed. Naomi was brought to the procedure suite and placed on the exam table in a comfortable lateral recumbent position. A grounding pad was placed on the right abdomen. The place for the needle placement was obtained by manual palpation as well as radiographic confirmation. The sterile field was prepped by chlorhexidine and sterile drapes. Local anesthesia, both superficial and deep was provided by local infiltration of 3 ml Lidocaine 1%. Using fluoroscopic guidance, A 17g 50 mm radiofrequency introducer needle with a 2 mm active tip was placed overlying the right C3 cervical vertebra from the lateral approach and was advanced until bony contact was felt with the articular pillar. Attempted aspiration revealed no blood or cerebrospinal fluid. Motor testing was then performed with 2.0 volts and no upper extremity motor stimulation was observed. 1 ml of 2% Lidocaine was injected through the RF needle. A radiofrequency lesion of the Right medial branch of C3 was then performed at 80 degrees Celsius for 2 minutes and 30 seconds. There was no unusual discomfort expressed by Naomi. The needles were withdrawn without difficulty. Naomi was observed and was without hemodynamic, neurologic, or allergic reactions. Fluoroscopic images were digitally archived. The same procedure was repeated for Right C4, and C5 medial branches. POST PROCEDURE EVALUATION: IMPRESSION: 1. Medication given is documented in the MAR 2. Follow up plan: Naomi to contact [facility] as needed. This procedure may be repeated if the patient achieves at least 50% improvement in pain and/or function for at least 6 months. 3. Estimated Blood Loss: <5ml 4. Fluoroscopy time: Documented in the EMR Follow up plans and appointments were discussed with Naomi. Post procedure instruction was given as documented in nursing documentation and having met discharge criteria, Naomi was discharged from the [facility]. This advanced procedure uses cooled radiofrequency energy to safely target the sensory nerves responsible for sending pain signals.1 A radiofrequency generator transmits a small current of Radiofrequency energy through an insulated electrode, or probe, placed within tissue. Ionic heating, produced by the friction of charged molecules, thermally deactivates the nerves responsible for sending pain signals to the brain. Radiofrequency energy heats and cools the tissue at the site of pain. Unlike other Radiofrequency procedures, Coolief circulates water through the device while heating nervous tissue to create a larger treatment area, increasing the opportunity to help with pain. This combination targets the pain-transmitting nerves without excessive heating, leading to pain relief. COMMENTS: No apparent complications. Post-procedure pain: VAS= 6/10. I personally performed this entire procedure. LAURI CASTANEDA DO, MPH ABPM&R - Subspecialty board certification in Pain Medicine [facility] Coding Conscious Sedation used for procedure: Yes CPT Codes: Single Facet Joint, Cervical/Thoracic cool - 78790V (71518V19~G) Single Facet Joint, Cervical/Thoracic cool each add'l - 23467U (87599R07~G) RT - RIGHT SIDE Additional Codes: Date of Service (11911) Date of service: 04/21/25 Diagnoses: Cervical spondylosis without myelopathy
== END 2025-04-21 13:04 | disposition home or self-care (01) ==
LOC: PC 13:04
PROVIDERS: PCP Family Medicine; Visit Provider Preventive Medicine Occupational Medicine
DX: M47.812 Spondylosis without myelopathy or radiculopathy, cervical region (principal)
CPT/HCPCS: 64633; 64634; 72040; J0665; J1100; J2250; J3010